=== PATIENT | female | born 1945 | race Caucasian/White ===

== ENCOUNTER 2018-04-29 14:55 | Inpatient (IN) ==
--- NOTE | 2018-04-29 15:17 | Emergency Department Note ---
Disposition Clinical Impression: SVC (superior vena cava obstruction) Disposition: Admitted As Inpatient Condition: Good Forms: ED Satisfaction Letter, Work/School Release Time of Disposition: 17:44 General Adult HPI - General Chief complaint: ED General Medical Stated complaint: Blood clot right side neck, CA Pt Time Seen by Provider: 04/29/18 15:11 Source: patient Mode of arrival: ambulatory Limitations: no limitations Nursing Notes Reviewed: Yes Vital Signs Reviewed: Yes - History of Present Illness HPI Narrative: Female patient presenting to the emergency department complaining of a clot to her superior vena cava. She was seen at oncology today and told to come to the emergency department. She has had one week history of increasing swelling to her face and arms bilaterally. She does have a history of colon cancer with metastatic disease to the liver. She denies any shortness of breath or chest pain. She does report that the swelling has been getting worse. She was at the hospital on Saturday and sent home. She had an ultrasound of her upper extremities that did not show evidence of flow obstruction however on CTA of patient's chest there was a clot to the superior vena cava. She denies any fevers or chills. No nausea vomiting or diarrhea. She does report pain to her lower ribs bilaterally and pain in her arms bilaterally. Also reporting a headache. Pain Scale: 7 - Related Data Home Medications Medication Instructions Recorded Confirmed Dexamethasone [Decadron] 4 mg PO BID 04/16/18 04/28/18 Lisinopril [Zestril] 10 mg PO DAILY 04/16/18 04/28/18 amLODIPine [Norvasc] 10 mg PO DAILY 04/16/18 04/28/18 Capecitabine [Xeloda] 1,500 mg PO BID 04/29/18 04/29/18 Previous Rx's Medication Instructions Recorded Lidocaine/Prilocaine [Emla] 1 appl TP DAILY #30 gm 04/16/18 Allergies Allergy/AdvReac Type Severity Reaction Status Date / Time codeine AdvReac Abdominal Verified 10/11/15 14:45 Pain All systems ED: reviewed and negative except as stated. Review of Systems: As Per HPI Constitutional: Denies: fever ENT ED: Reports: other (Swelling to her face and arms bilaterally also to her breasts and upper chest.). Denies: congestion Cardiovascular: Denies: chest pain, syncope Respiratory: Denies: cough, dyspnea Gastrointestinal: Denies: abdominal pain, nausea, vomiting, diarrhea Genitourinary: Reports: dysuria (Occasional). Denies: urgency, frequency, hematuria Integumentary: Denies: rash Neurological: Reports: headache, other (Pain to upper extremities bilaterally.) . Denies: weakness Past Medical History - Past Medical History Attestation: Yes The following information was validated with the patient. 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 Also to her neck area. Does complain of a soreness to her neck bilaterally.) - Eye Eye exam: Present: normal appearance, PERRL, EOMI. Absent: scleral icterus - ENT ENT exam: normal exam, normal oropharynx, mucous membranes moist - Neck Neck exam: Present: trachea midline, other (Fullness feeling. Pain to palpation of left and right side of her neck.) - Chest Chest inspection: Present: other (Vascular congestion to the upper portion of her chest as well as her breasts bilaterally.) - Respiratory Respiratory exam: Present: normal lung sounds bilaterally. Absent: respiratory distress, accessory muscle use - Cardiovascular Cardiovascular exam: Present: regular rate, normal rhythm, normal heart sounds - Abdominal Exam Abdominal exam: Present: soft, Non-Tender. Absent: tenderness, distention, guarding, rebound, rigidity, organomegaly, Duran's sign, Rovsing's sign, tenderness at McBurney's Point - Extremities Exam Extremities exam: Present: tenderness (To palpation of both upper extremities), other (Congestion in swelling to upper extremity is bilaterally. However compartments are soft. Does have good pulses bilaterally.) - Back Exam Back exam: Present: normal inspection, full ROM. Absent: tenderness - Neurological Exam Neurological exam: Present: alert, oriented X3 - Psychiatric Psychiatric exam: Present: normal affect, normal mood - Skin Skin exam: Present: warm, dry, intact, normal color. Absent: rash, cyanosis, diaphoresis Course Course Narrative: Patient has known SVC syndrome. She is uncomfortable treating this at home. We will start patient on a heparin drip at this time. Patient does report a tightness feeling to her neck as well as her bilateral upper extremity is. She is refusing pain medication other than Tylenol at this time. She was diagnosed with a urinary tract infection however is not started antibodies for this. We did do a UA while she was here. She has a positive leuk esterase but no urine bacteria. We will send the urine for culture at this time. We will also admit to the hospital. Patient states she has had no history of blood clot previously. She is well-appearing and does not appear to be in any distress currently. She does have a port to the right side which is concerning for where the clot originated. She states she has been unable to use the port for several days. - Consultations Consultation #1: Dr. Medrano accepted patient in stable condition. Time: 17:00 Consultation #2: I spoke with Dr. Cavazos with oncology. He states he will be over to the hospital see the patient on the floor. Time: 17:36 Vital Signs Temperature 98.2 F 04/29/18 14:58 Pulse Rate 96 04/29/18 14:58 Respiratory Rate 16 04/29/18 14:58 Blood Pressure 147/84 04/29/18 14:58 O2 Sat by Pulse Oximetry 97 04/29/18 14:58 Temperature 98.2 F 04/29/18 14:58 Pulse Rate 96 04/29/18 14:58 Respiratory Rate 16 04/29/18 14:58 Blood Pressure 147/84 04/29/18 14:58 O2 Sat by Pulse Oximetry 97 04/29/18 14:58 Oxygen Delivery Oxygen Delivery Room Air Medical Decision Making - Medical Records Medical records reviewed: Yes I reviewed the patient's medical records. - Lab Data Lab results reviewed: Yes I reviewed the patient's lab results. Result diagrams: 04/29/18 16:34 04/29/18 16:34 Lab Results 04/29/18 04/29/18 04/29/18 Range/Units 16:27 16:34 16:34 WBC 6.3 (4.3-11.1) K/mcL RBC 4.01 (3.82-4.97) M/mcL Hgb 12.4 (11.5-15.4) g/dL Hct 36.9 (35.3-44.9) % MCV 92.0 (83.0-100.0) fL MCH 30.9 (28.0-33.3) pg MCHC 33.6 (31.6-35.5) g/dL RDW 17.2 H (11.5-14.5) % Plt Count 88 L D (140-400) K/mcL MPV 10.7 (9.4-12.4) fL Immature Plt Fraction 5.2 (1.1-6.1) % PT (9.4-12.1) Seconds INR Heparin Anti-Xa, Unfract (0.30-0.70) IU/mL Sodium 133 L (136-145) mEq/L Potassium 3.8 (3.5-5.1) mEq/L Chloride 102 (98-107) mEq/L Carbon Dioxide 24 (23-29) mEq/L BUN 17 (8-23) mg/dL Creatinine 0.63 (0.60-1.20) mg/dL Est GFR ( Amer) > 60 (> 60) Est GFR (Non-Af Amer) > 60 (> 60) BUN/Creatinine Ratio 27 H (6-26) Glucose 106 H (70-105) mg/dL Calculated Osmolality 278 L (280-300) Calcium 9.3 (8.6-10.3) mg/dL Urine Color Dark Yellow (Yellow) Urine Clarity Clear (Clear) Urine pH 5.5 (5.0-8.0) pH Units Ur Specific [place] 1.030 H (1.010-1.025) Urine Protein Trace (Neg-Trace) mg/dL Urine Glucose (UA) Normal (Normal) mg/dL Urine Ketones Negative (Negative) mg/dL Urine Blood Negative (Negative) Urine Nitrite Negative (Negative) Urine Bilirubin Small H (Negative) Urine Urobilinogen Normal (Normal) mg/dL Ur Leukocyte Esterase Moderate H (Negative) Urine Microscopic RBC 3-5 H (0-3) per hpf Urine Microscopic WBC 30-50 H (0-3) per hpf Ur Squamous Epith Cells Many H (None-Few) per lpf Urine Bacteria None Seen (None-Few) per hpf Hyaline Casts Moderate H (None-Few) per lpf Ur Culture Indicated? NO. A (NO) 04/29/18 Range/Units 16:52 WBC (4.3-11.1) K/mcL RBC (3.82-4.97) M/mcL Hgb (11.5-15.4) g/dL Hct (35.3-44.9) % MCV (83.0-100.0) fL MCH (28.0-33.3) pg MCHC (31.6-35.5) g/dL RDW (11.5-14.5) % Plt Count (140-400) K/mcL MPV (9.4-12.4) fL Immature Plt Fraction (1.1-6.1) % PT 10.9 (9.4-12.1) Seconds INR 1.0 Heparin Anti-Xa, Unfract 0.08 L (0.30-0.70) IU/mL Sodium (136-145) mEq/L Potassium (3.5-5.1) mEq/L Chloride (98-107) mEq/L Carbon Dioxide (23-29) mEq/L BUN (8-23) mg/dL Creatinine (0.60-1.20) mg/dL Est GFR ( Amer) (> 60) Est GFR (Non-Af Amer) (> 60) BUN/Creatinine Ratio (6-26) Glucose (70-105) mg/dL Calculated Osmolality (280-300) Calcium (8.6-10.3) mg/dL Urine Color (Yellow) Urine Clarity (Clear) Urine pH (5.0-8.0) pH Units Ur Specific [place] (1.010-1.025) Urine Protein (Neg-Trace) mg/dL Urine Glucose (UA) (Normal) mg/dL Urine Ketones (Negative) mg/dL Urine Blood (Negative) Urine Nitrite (Negative) Urine Bilirubin (Negative) Urine Urobilinogen (Normal) mg/dL Ur Leukocyte Esterase (Negative) Urine Microscopic RBC (0-3) per hpf Urine Microscopic WBC (0-3) per hpf Ur Squamous Epith Cells (None-Few) per lpf Urine Bacteria (None-Few) per hpf Hyaline Casts (None-Few) per lpf Ur Culture Indicated? (NO)
[2018-04-29 16:41] LABS: Bilirubin,Urine Small (Negative); Blood,Urine Negative (Negative); Clarity,Urine Clear (Clear); Color,Urine Dark Yellow (Yellow); Glucose,Urine (UA) Normal (Normal); Ketones,Urine Negative (Negative); Leukocyte Esterase,Urine Moderate (Negative); Nitrite,Urine Negative (Negative); PH,Urine 5.5 pH Units (5.0-8.0); Protein,Urine Trace mg/dL (Neg-Trace); Urobilinogen,Urine Normal (Normal)
[2018-04-29 16:44] LABS: Bacteria,Urine None Seen per hpf (None-Few); Hyaline Casts,Urine Moderate per lpf (None-Few); Squamous Epithelial Cell,Urine Many per lpf (None-Few); WBC,Urine 30-50 per hpf (0-3)
[2018-04-29] MEDS ORDERED: *HR* Heparin 5,000 UNIT/ML VIAL IVP ONE (16:52)
[2018-04-29] MEDS ORDERED: *HR* Heparin 5,000 UNIT/ML VIAL IVP PRN ×2 (16:52)
[2018-04-29] MEDS ORDERED: Heparin 25,000 UNIT/500 ML D5W 25,000 UNIT/500 ML BAG IVC SCH (17:00)
[2018-04-29 17:16] LABS: Immature Granulocytes % 0.5 % (0-4)
[2018-04-29 17:18] LABS: Basophils % 0.3 %; Eosinophils # 0.1 K/mcL (0.0-0.6); Eosinophils % 0.8 %; Hematocrit 36.9 % (35.3-44.9); Hemoglobin 12.4 g/dL (11.5-15.4); Immature Platelets 5.2 % (1.1-6.1); Lymphocytes # 1.1 K/mcL (0.6-4.6); Lymphocytes % 16.6 %; Mean Corpuscular HGB Conc 33.6 g/dL (31.6-35.5); Mean Corpuscular Hemoglobin 30.9 pg (28.0-33.3); Mean Platelet Volume 10.7 fL (9.4-12.4); Monocytes # 0.2 K/mcL (0.0-1.3); Monocytes % 2.5 %; Red Blood Count 4.01 M/mcL (3.82-4.97); Red Cell Distribution Width 17.2 % (11.5-14.5); Segmented Neutrophils % 79.3 %
[2018-04-29 17:25] LABS: Heparin anti-factor XA UFH 0.08 IU/mL (0.30-0.70)
[2018-04-29 17:26] LABS: Prothrombin Time 10.9 Seconds (9.4-12.1)
[2018-04-29 17:30] LABS: BUN/Creatinine Ratio 27 (6-26); Blood Urea Nitrogen 17 mg/dL (8-23); Calcium 9.3 mg/dL (8.6-10.3); Carbon Dioxide 24 mEq/L (23-29); Chloride 102 mEq/L (98-107); Glucose 106 mg/dL (70-105); Osmolality,Calculated 278 (280-300); Potassium 3.8 mEq/L (3.5-5.1); Sodium 133 mEq/L (136-145); eGFR For Non-African Americans > 60 (> 60)
[2018-04-29 17:35] LABS: Platelet Count 88 K/mcL (140-400)
[2018-04-29 17:36] LABS: Platelet Estimate Decreased (Normal)
[2018-04-29] MEDS ORDERED: *HR* HYDROcodone/Acet 5/325 mg TABLET PO PRN (17:44)
[2018-04-29] MEDS ORDERED: *HR* OxyCODONE Immed Rel 5 MG TABLET PO PRN (17:44)
[2018-04-29] MEDS ORDERED: Ondansetron 4 MG/2 ML VIAL IVP PRN (17:44)
[2018-04-29] MEDS ORDERED: Naloxone 0.4 MG/ML INJ IVP PRN (17:44)
[2018-04-29] MEDS ORDERED: Acetaminophen 325 MG TABLET PO PRN (17:44)
--- NOTE | 2018-04-29 17:47 | Emergency Department Note ---
Disposition Clinical Impression: SVC (superior vena cava obstruction) Disposition: Admitted As Inpatient Condition: Good Forms: ED Satisfaction Letter, Work/School Release General Adult HPI - General Chief complaint: ED General Medical Stated complaint: Blood clot right side neck, CA Pt Time Seen by Provider: 04/29/18 15:11 Source: patient Mode of arrival: ambulatory Limitations: no limitations - History of Present Illness Pain Scale: 7 - Related Data Home Medications Medication Instructions Recorded Confirmed Dexamethasone [Decadron] 4 mg PO BID 04/16/18 04/29/18 Lisinopril [Zestril] 10 mg PO DAILY 04/16/18 04/29/18 amLODIPine [Norvasc] 10 mg PO DAILY 04/16/18 04/29/18 Capecitabine [Xeloda] 1,500 mg PO BID 04/29/18 04/29/18 Previous Rx's Medication Instructions Recorded Lidocaine/Prilocaine [Emla] 1 appl TP DAILY #30 gm 04/16/18 Allergies Allergy/AdvReac Type Severity Reaction Status Date / Time codeine AdvReac Abdominal Verified 10/11/15 14:45 Pain Constitutional: Denies: fever ENT ED: Reports: other (Swelling to her face and arms bilaterally also to her breasts and upper chest.). Denies: congestion Cardiovascular: Denies: chest pain, syncope Respiratory: Denies: cough, dyspnea Gastrointestinal: Denies: abdominal pain, nausea, vomiting, diarrhea Genitourinary: Reports: dysuria (Occasional). Denies: urgency, frequency, hematuria Integumentary: Denies: rash Neurological: Reports: headache, other (Pain to upper extremities bilaterally.) . 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: Reports: no DIESEL ENGINE ERECTOR history - Social History Smoking Status: Never smoker Smokeless Tobacco Status: No Alcohol use: Reports: none Drug use: Reports: none Physical Exam - General Limitations: no limitations General appearance: alert, in no apparent distress Course Vital Signs Temperature 98.2 F 04/29/18 14:58 Pulse Rate 96 04/29/18 14:58 Respiratory Rate 16 04/29/18 14:58 Blood Pressure 147/84 04/29/18 14:58 O2 Sat by Pulse Oximetry 97 04/29/18 14:58 Temperature 98.2 F 04/29/18 14:58 Pulse Rate 96 04/29/18 14:58 Respiratory Rate 16 04/29/18 14:58 Blood Pressure 147/84 04/29/18 14:58 O2 Sat by Pulse Oximetry 97 04/29/18 14:58 Oxygen Delivery Oxygen Delivery Room Air Medical Decision Making - Lab Data Result diagrams: 04/29/18 16:34 04/29/18 16:34 Lab Results 04/29/18 04/29/18 04/29/18 Range/Units 16:27 16:34 16:34 WBC 6.3 (4.3-11.1) K/mcL RBC 4.01 (3.82-4.97) M/mcL Hgb 12.4 (11.5-15.4) g/dL Hct 36.9 (35.3-44.9) % MCV 92.0 (83.0-100.0) fL MCH 30.9 (28.0-33.3) pg MCHC 33.6 (31.6-35.5) g/dL RDW 17.2 H (11.5-14.5) % Plt Count 88 L D (140-400) K/mcL MPV 10.7 (9.4-12.4) fL Immature Gran % 0.5 (0-4) % Seg Neutrophils % 79.3 % Lymphocytes % 16.6 % Monocytes % 2.5 % Eosinophils % 0.8 % Basophils % 0.3 % Neutrophils # 5.0 (1.6-8.9) K/mcL Lymphocytes # 1.1 (0.6-4.6) K/mcL Monocytes # 0.2 (0.0-1.3) K/mcL Eosinophils # 0.1 (0.0-0.6) K/mcL Basophils # 0.0 (0.0-0.2) K/mcL Platelet Estimate Decreased L (Normal) Immature Plt Fraction 5.2 (1.1-6.1) % PT (9.4-12.1) Seconds INR Heparin Anti-Xa, Unfract (0.30-0.70) IU/mL Sodium 133 L (136-145) mEq/L Potassium 3.8 (3.5-5.1) mEq/L Chloride 102 (98-107) mEq/L Carbon Dioxide 24 (23-29) mEq/L BUN 17 (8-23) mg/dL Creatinine 0.63 (0.60-1.20) mg/dL Est GFR ( Amer) > 60 (> 60) Est GFR (Non-Af Amer) > 60 (> 60) BUN/Creatinine Ratio 27 H (6-26) Glucose 106 H (70-105) mg/dL Calculated Osmolality 278 L (280-300) Calcium 9.3 (8.6-10.3) mg/dL Urine Color Dark Yellow (Yellow) Urine Clarity Clear (Clear) Urine pH 5.5 (5.0-8.0) pH Units Ur Specific [place] 1.030 H (1.010-1.025) Urine Protein Trace (Neg-Trace) mg/dL Urine Glucose (UA) Normal (Normal) mg/dL Urine Ketones Negative (Negative) mg/dL Urine Blood Negative (Negative) Urine Nitrite Negative (Negative) Urine Bilirubin Small H (Negative) Urine Urobilinogen Normal (Normal) mg/dL Ur Leukocyte Esterase Moderate H (Negative) Urine Microscopic RBC 3-5 H (0-3) per hpf Urine Microscopic WBC 30-50 H (0-3) per hpf Ur Squamous Epith Cells Many H (None-Few) per lpf Urine Bacteria None Seen (None-Few) per hpf Hyaline Casts Moderate H (None-Few) per lpf Ur Culture Indicated? NO. A (NO) 04/29/18 Range/Units 16:52 WBC (4.3-11.1) K/mcL RBC (3.82-4.97) M/mcL Hgb (11.5-15.4) g/dL Hct (35.3-44.9) % MCV (83.0-100.0) fL MCH (28.0-33.3) pg MCHC (31.6-35.5) g/dL RDW (11.5-14.5) % Plt Count (140-400) K/mcL MPV (9.4-12.4) fL Immature Gran % (0-4) % Seg Neutrophils % % Lymphocytes % % Monocytes % % Eosinophils % % Basophils % % Neutrophils # (1.6-8.9) K/mcL Lymphocytes # (0.6-4.6) K/mcL Monocytes # (0.0-1.3) K/mcL Eosinophils # (0.0-0.6) K/mcL Basophils # (0.0-0.2) K/mcL Platelet Estimate (Normal) Immature Plt Fraction (1.1-6.1) % PT 10.9 (9.4-12.1) Seconds INR 1.0 Heparin Anti-Xa, Unfract 0.08 L (0.30-0.70) IU/mL Sodium (136-145) mEq/L Potassium (3.5-5.1) mEq/L Chloride (98-107) mEq/L Carbon Dioxide (23-29) mEq/L BUN (8-23) mg/dL Creatinine (0.60-1.20) mg/dL Est GFR ( Amer) (> 60) Est GFR (Non-Af Amer) (> 60) BUN/Creatinine Ratio (6-26) Glucose (70-105) mg/dL Calculated Osmolality (280-300) Calcium (8.6-10.3) mg/dL Urine Color (Yellow) Urine Clarity (Clear) Urine pH (5.0-8.0) pH Units Ur Specific [place] (1.010-1.025) Urine Protein (Neg-Trace) mg/dL Urine Glucose (UA) (Normal) mg/dL Urine Ketones (Negative) mg/dL Urine Blood (Negative) Urine Nitrite (Negative) Urine Bilirubin (Negative) Urine Urobilinogen (Normal) mg/dL Ur Leukocyte Esterase (Negative) Urine Microscopic RBC (0-3) per hpf Urine Microscopic WBC (0-3) per hpf Ur Squamous Epith Cells (None-Few) per lpf Urine Bacteria (None-Few) per hpf Hyaline Casts (None-Few) per lpf Ur Culture Indicated? (NO) Attestation Statement - Attestation Attestation: I examined this patient and my medical decision-making was reviewed with the Resident Physician. I agree with the documented findings, disposition and treatment plan as described except to the extent set forth below. Patient sent in to be anticoagulated and admitted for SVC syndrome secondary to a clot. She has metastatic colon cancer with metastases to her liver. Clot was visualized on CT scan earlier today. She has classic presentation with facial swelling, headache, bilateral upper extremity swelling without lower extremity swelling. Mental status is normal. Patient being admitted, accepted by the hospitalist.
--- NOTE | 2018-04-29 18:12 | Internal Med History&Physical ---
Date of Encounter: 04/29/18 Time of Encounter: 18:08 Internal Medicine - H&P: HPI Chief complaint: Facial swelling, bilateral upper extremity swelling Admitted From: Emergency Dept Plans for Post Hospital Care: Home History of present illness: Ms. 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 Let us from Saturday she noticed having swelling in both upper extremities. She was seen at he Hem Onc office had a venous Doppler of both UE done which did not show any DVT. However her CTA of chest showed possible blood clots in SVC. Patient was asked to go to ER for further evaluation and to be admitted in the hospital. Patient states that she still having same symptoms. Denied any chest pain. Denied any hematemesis /melena. Denied any lower extremity tenderness/pain Past Med Surg Social Fam HX - Past Medical History Medical history: cancer, hypertension Additional medical history: colon ca Psychiatric history: no psych history - Social History Smoking Status: Never smoker Smokeless Tobacco Status: No Alcohol use: none Drug use: none - Family History Grandmother Hx Family Cancer: Yes (Ovarian /cervical) Internal Medicine - H&P: Meds Dexamethasone [Decadron] 4 mg PO BID 04/16/18 [History] Lidocaine/Prilocaine [Emla] 1 appl TP DAILY #30 gm 04/16/18 [Rx] Lisinopril [Zestril] 10 mg PO DAILY 04/16/18 [History] amLODIPine [Norvasc] 10 mg PO DAILY 04/16/18 [History] Capecitabine [Xeloda] 1,500 mg PO BID 04/29/18 [History] 3 Allergy/AdvReac Type Severity Reaction Status Date / Time codeine AdvReac Abdominal Verified 10/11/15 14:45 Pain All Systems PM: A 10-system review of systems was performed and is negative for pertinent findings except as documented above in the HPI. Review of systems: All the systems are reviewed everything is benign except the systems and symptoms I mentioned in the history of present illness - Constitutional Vitals: Temp Pulse Resp BP Pulse Ox 98.2 F 96 16 147/84 97 04/29/18 14:58 04/29/18 14:58 04/29/18 14:58 04/29/18 14:58 04/29/18 14:58 General appearance: Present: cooperative, A&O X 3, no acute distress, answers questions appropriately Exam: See below - Head Head exam: Present: atraumatic Additional comments: Slightly swollen face - Neck Neck exam general surgery: Present: full ROM, supple. Absent: tenderness - Respiratory Respiratory exam: Present: decreased breath sounds. Absent: rales, respiratory distress, rhonchi, wheezes - Cardiovascular Cardiovascular exam: Present: RRR, +S1, +S2. Absent: tachycardia - GI/Abdominal GI/Abdominal exam: Present: normal bowel sounds, soft. Absent: rebound, rigid, tenderness - Extremities Exam Extremities exam: Absent: calf tenderness, pedal edema, tenderness Additional comments: Mild to moderate swelling in both upper extremities - Back Exam Back exam: Absent: CVA tenderness (L), CVA tenderness (R) - Neurological Exam Neurological exam: Present: alert, oriented X3 - Psychiatric Psychiatric exam: Present: normal affect, normal mood - Skin Skin exam: Absent: rash Internal Med - H&P Results - Labs CBC & Chem 7: 04/29/18 16:34 04/29/18 16:34 Labs: Short CBC 04/29/18 Range/Units 16:34 WBC 6.3 (4.3-11.1) K/mcL Hgb 12.4 (11.5-15.4) g/dL Hct 36.9 (35.3-44.9) % Plt Count 88 L D (140-400) K/mcL Neutrophils # 5.0 (1.6-8.9) K/mcL BMP 04/29/18 16:34 Sodium 133 L Potassium 3.8 Chloride 102 Carbon Dioxide 24 BUN 17 Creatinine 0.63 Glucose 106 H Calcium 9.3 Urine 04/29/18 Range/Units 16:27 Urine Color Dark Yellow (Yellow) Urine Clarity Clear (Clear) Urine pH 5.5 (5.0-8.0) pH Units Ur Specific [place] 1.030 H (1.010-1.025) Urine Protein Trace (Neg-Trace) mg/dL Urine Glucose (UA) Normal (Normal) mg/dL - Assessment and plan (1) Acute thrombosis of superior vena cava Current Visit: Yes Status: Acute Assessment and plan: Admit the patient into Tele reviewed her CTA of the chest from 04/28/18 showed no acute PE, however does have possible thrombi in SVC Venous doppler off bilateral upper extremity negative for DVT her DVT mostly due to chemo port will talk to Heme Onc in AM about replacing Chemo port vs holding Chemo for few weeks we will place her on heparin drip with bolus dose will consider to switch to Eliquis or Xarelto in AM after talking to Heme Onc Heme Onc consulted cont symptomatic and supportive care (2) Port-A-Cath in place Current Visit: Yes Status: Acute (3) Hypertension Current Visit: Yes Status: Acute Assessment and plan: Stable blood pressure resumed all home medications Qualifiers: Hypertension type: essential hypertension Qualified Code(s): I10 - Essential (primary) hypertension (4) Metastatic colon cancer to liver Current Visit: Yes Status: Acute Assessment and plan: Heme Onc consulted (5) Colon cancer Current Visit: No Status: Acute Qualifiers: Colon location: unspecified part of colon Qualified Code(s): C18.9 - Malignant neoplasm of colon, unspecified - Time Spent With Patient Total time spent is greater than 50% in coordination of care (as documented) at patient's floor/unit and/or counseling patient:
[2018-04-30 01:28] LABS: Red Cell Distribution Width 17.1 % (11.5-14.5)
[2018-04-30 01:30] LABS: Basophils % 0.2 %; Eosinophils # 0.1 K/mcL (0.0-0.6); Eosinophils % 1.2 %; Hematocrit 37.1 % (35.3-44.9); Hemoglobin 12.4 g/dL (11.5-15.4); Immature Granulocytes % 0.8 % (0-4); Immature Platelets 4.5 % (1.1-6.1); Lymphocytes # 0.9 K/mcL (0.6-4.6); Lymphocytes % 17.5 %; Mean Corpuscular HGB Conc 33.4 g/dL (31.6-35.5); Mean Corpuscular Hemoglobin 30.2 pg (28.0-33.3); Mean Corpuscular Volume 90.5 fL (83.0-100.0); Mean Platelet Volume 10.8 fL (9.4-12.4); Monocytes # 0.1 K/mcL (0.0-1.3); Monocytes % 2.4 %; Neutrophils # 3.9 K/mcL (1.6-8.9); Segmented Neutrophils % 77.9 %
[2018-04-30 01:33] LABS: Platelet Count 80 K/mcL (140-400)
[2018-04-30 01:54] LABS: BUN/Creatinine Ratio 25 (6-26); Blood Urea Nitrogen 14 mg/dL (8-23); Calcium 9.2 mg/dL (8.6-10.3); Carbon Dioxide 23 mEq/L (23-29); Chloride 104 mEq/L (98-107); Glucose 113 mg/dL (70-105); Osmolality,Calculated 281 (280-300); Potassium 3.9 mEq/L (3.5-5.1); Sodium 135 mEq/L (136-145); eGFR For Non-African Americans > 60 (> 60)
[2018-04-30] MEDS: amLODIPine 5 MG TABLET PO SCH (10:25)
--- NOTE | 2018-04-30 18:03 | Oncology Inp Consult Note ---
Date of Encounter: 04/30/18 Time of Encounter: 16:30 Assessment and Plan (1) SVC (superior vena cava obstruction) Status: Acute Assessment and plan: CTA Chest revealed Focal filling defect is seen within the superior vena cava while this could represent mixing of contrast given the presence of a Port-A- Cath this could represent partial thrombosis. Clinically consistent with SVC thrombus resulting in SVC syndrome like symptoms. She has experienced a dramatic improvement within her symptoms since initiation of IV Heparin. Clinically stable and improving at this time. (2) Acute thrombosis of superior vena cava Status: Acute Assessment and plan: Details as above. Risk factors include active malignancy and presence of A-Port Plan: Discussed with interventional radiology team- would recommend keeping port in place at this time as long as she continues to clinically respond to anticoagulation Recommend Lovenox at discharge, may transition to DOAC in future following a few weeks or lovenox-exact duration TBD per Dr. Stapleton. - Data of Consult Patient: known to practice within the last 3 years Consult date: 04/30/18 Requesting Physician: Jaida Medrano MD Primary Care Provider: PCP NONE - Consult Narrative Reason for consult: SVC thrombus History of present illness: Ms. Kate is a 73 year old female with metastatic rectal cancer involving the liver, abdominal lymph nodes and possibly lung initially diagnosed 01/2015. Prior therapy: 1. FOLFOX Avastin 02/2015-06/2015 2. 5-FU Avastin maintenance 06/2015-03/2017. Avastin was discontinued 2016 secondary to proteinuria. Stopped secondary to progression 3. XELOX with Avastin 07/2017-12/2017, stopped secondary to progression. 4. FOLFIRI Avastin 01/14/2018-04/2018 Current therapy: 1. Dose attenuated XELIRI with Avastin initiated 04/23/2018 Treatment intent: Palliative Ms. Kate presented to outpatient cancer center clinic on 04/28/18 with report of worsening facial/neck and upper extremity edema. She was evaluated in the ER over the weekend for edema which began on Saturday. This was suspected to be secondary to an allergic reaction and she was discharged with benadryl. Since that time her edema has worsened, she feels an ear fullness, pain and tenderness with neck movement or palpation, she experiences orthopnea but no breathing difficulty otherwise, no issues swallowing or tongue edema. She denies fever, chills, chest pain, visual changes or neurologic deficit. She has not had any recent medication or environmental changes. Her clinical presentation was concerning for SVC thrombus. A CTA was obtained which revealed a thrombus in the SVC. Her BUE dopplers were negative. The patient was contacted regarding her CT results when she reported acute changes and worsening in her symptoms in regards to hearing difficulty, worsening of edema and voice changes. She was then asked to present to the ER for admission with heparin gtt. Past Med Surg Social Fam HX - Past Medical History Medical history: cancer, hypertension Additional medical history: colon ca Psychiatric history: no psych history - Past Surgical History Surgical History: other Additional surgical history: carpal tunnel surgery to right hand - Social History Smoking Status: Never smoker Smokeless Tobacco Status: No Alcohol use: none Drug use: none - Family History Grandmother Hx Family Cancer: Yes Medications and Allergies Dexamethasone [Decadron] 4 mg PO BID 04/16/18 [History] Lidocaine/Prilocaine [Emla] 1 appl TP DAILY #30 gm 04/16/18 [Rx] Lisinopril [Zestril] 10 mg PO DAILY 04/16/18 [History] amLODIPine [Norvasc] 10 mg PO DAILY 04/16/18 [History] Capecitabine [Xeloda] 1,500 mg PO BID 04/29/18 [History] Enoxaparin [Lovenox] 65 mg SQ Q12HCO #30 syringe 05/01/18 [Rx] 3 Allergy/AdvReac Type Severity Reaction Status Date / Time codeine AdvReac Abdominal Verified 10/11/15 14:45 Pain Constitutional: Present: fatigue, weakness. Absent: anorexia, chills, fever(s) , frequent falls, headache(s), weight loss Eyes: Present: other (orbital edema). Absent: change in vision, diplopia Nose, mouth and throat: Present: change in voice (improved since admission), facial pain, neck pain. Absent: dysphagia, headache(s), mouth pain, throat swelling, tongue swelling, vertigo Cardiovascular: Present: orthopnea. Absent: chest pain, palpitations Respiratory: Absent: cough, dyspnea, hemoptysis, stridor Gastrointestinal: Absent: abdominal pain, change in bowel habits, constipation, diarrhea, nausea, vomiting Genitourinary: Absent: dysuria, hematuria Musculoskeletal: Present: muscle weakness Integumentary: Present: erythema. Absent: rash, wounds Neurological: Absent: focal weakness, frequent falls Hematologic/Lymphatic: Present: as per HPI Allergic/Immunologic: Absent: tongue swelling, throat swelling, uticaria, wheezing, lip swelling Oncology - Exam - Constitutional Vitals: Temp Pulse Resp BP Pulse Ox 96.2 F L 89 19 144/71 92 04/30/18 17:26 04/30/18 17:26 04/30/18 17:26 04/30/18 17:26 04/30/18 17:26 General appearance: cooperative, no acute distress, no febrile - Head Head exam: Present: atraumatic - ENT ENT exam: Present: mucous membranes moist - Respiratory Respiratory exam: Present: CTAB. Absent: respiratory distress - Cardiovascular Cardiovascular exam: Present: RRR, +S1, +S2 - GI/Abdominal GI/Abdominal exam: Present: normal bowel sounds, soft. Absent: guarding, rebound, tenderness - Extremities Exam Extremities exam: Present: normal inspection. Absent: calf tenderness - Neurological Exam Neurological exam: Present: alert, oriented X3, no focal deficits, strengths equal and symetr throughout - Psychiatric Psychiatric exam: Present: normal affect, normal mood - Skin Skin exam: Present: dry, intact, normal color, warm Oncology - Results Labs: 3 04/30/18 04/30/18 04/30/18 16:12 08:33 01:02 WBC RBC Hgb Hct MCV MCH MCHC RDW Plt Count MPV Immature Gran % Seg Neutrophils % Lymphocytes % Monocytes % Eosinophils % Basophils % Neutrophils # Lymphocytes # Monocytes # Eosinophils # Basophils # Immature Plt Fraction Heparin Anti-Xa, Unfract 0.62 1.15 H* 1.67 H* Sodium Potassium Chloride Carbon Dioxide BUN Creatinine Est GFR ( Amer) Est GFR (Non-Af Amer) BUN/Creatinine Ratio Glucose Calculated Osmolality Calcium 3 04/30/18 04/30/18 01:02 01:02 WBC 5.0 RBC 4.10 Hgb 12.4 Hct 37.1 MCV 90.5 MCH 30.2 MCHC 33.4 RDW 17.1 H Plt Count 80 L MPV 10.8 Immature Gran % 0.8 Seg Neutrophils % 77.9 Lymphocytes % 17.5 Monocytes % 2.4 Eosinophils % 1.2 Basophils % 0.2 Neutrophils # 3.9 Lymphocytes # 0.9 Monocytes # 0.1 Eosinophils # 0.1 Basophils # 0.0 Immature Plt Fraction 4.5 Heparin Anti-Xa, Unfract Sodium 135 L Potassium 3.9 Chloride 104 Carbon Dioxide 23 BUN 14 Creatinine 0.56 L Est GFR ( Amer) > 60 Est GFR (Non-Af Amer) > 60 BUN/Creatinine Ratio 25 Glucose 113 H Calculated Osmolality 281 Calcium 9.2 Consult Discharge Plan - Plan Instructions: Enoxaparin (Injection), Deep Venous Thrombosis (DC), Superior Vena Cava Syndrome (DC) Additional Instructions: Follow-up with Dr. Webster, Sample Processor (eye doctor) today. Please call his office today to schedule as soon as you know what time you are leaving. He is not in office tomorrow. Please continue to use Lovenox as directed until hematology/oncology tells you to stop. Please follow-up with Hematology/oncology next week. Please follow-up with your primary care physician in 1 week. Referrals: [facility] [Provider Group] - 05/07/18 8:30 am Ophthalmology [Provider Group] - 05/01/18 2:30 pm ( [address] [place] [address]) Ysabel Bauer, CHORE TENDER [Advanced Practice Nurse] - 05/07/18 9:15 am (New patient appt ) NONE,PCP [Primary Care Provider] - Prescriptions: Enoxaparin [Lovenox] 65 mg SQ Q12HCO #30 syringe
--- NOTE | 2018-04-30 19:07 | Internal Med Progress Note ---
Hospitalist Progress Note - Encounter Date of Encounter: 04/30/18 Time of Encounter: 11:00 - Subjective Interval History: Ms. 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 Let us from Saturday she noticed having swelling in both upper extremities. She was seen at he Hem Onc office had a venous Doppler of both UE done which did not show any DVT. However her CTA of chest showed possible blood clots in SVC. Patient was admitted in the hospital and started on heparin drip. Patient states his symptoms improved today - Exam Vitals: Temp Pulse Resp BP Pulse Ox 96.2 F L 89 19 144/71 92 04/30/18 17:26 04/30/18 17:26 04/30/18 17:26 04/30/18 17:26 04/30/18 17:26 Exam: Gen: Alert, awake, Oriented to time,place and person Chest: Diminished breath sounds B/L, No wheezing, No crackles, No rales Heart: S1S2+ RRR No murmurs Abd: Soft, NT, BS +, No organomegaly Ext:, pulses are palpable, No calf tenderness, mild edema in both upper extremities Neuro : Benign findings Skin: No rash. - Assessment and Plan (1) Acute thrombosis of superior vena cava Current Visit: Yes Status: Acute Assessment and Plan: CTA of the chest from 04/28/18 showed no acute PE, however does have possible thrombi in SVC Venous doppler off bilateral upper extremity negative for DVT her SVC thrombi mostly due to chemo port Talked to Heme Onc and IR , recommend not to remove Chemo port Cont Heparin gtt for now cont symptomatic and supportive care (2) Port-A-Cath in place Current Visit: Yes Status: Acute (3) Hypertension Current Visit: Yes Status: Acute Assessment and Plan: Stable blood pressure resumed all home medications (4) Metastatic colon cancer to liver Current Visit: Yes Status: Acute Assessment and Plan: Heme Onc consulted (5) Colon cancer Current Visit: No Status: Acute - Time Spent with Patient Total time spent is greater than 50% in coordination of care (as documented) at patient's floor/unit and/or counseling patient: Internal Medicine: Result - Labs CBC & Chem 7: 04/30/18 01:02 04/30/18 01:02 Labs: Short CBC 04/30/18 Range/Units 01:02 WBC 5.0 (4.3-11.1) K/mcL Hgb 12.4 (11.5-15.4) g/dL Hct 37.1 (35.3-44.9) % Plt Count 80 L (140-400) K/mcL Neutrophils # 3.9 (1.6-8.9) K/mcL BMP 04/30/18 01:02 Sodium 135 L Potassium 3.9 Chloride 104 Carbon Dioxide 23 BUN 14 Creatinine 0.56 L Glucose 113 H Calcium 9.2 - ABG Interpretation ABG results: PT/INR, D-dimer PT 10.9 Seconds (9.4-12.1) 04/29/18 16:52 Consult Discharge Plan - Plan Referrals: NONE,PCP [Primary Care Provider] - (3) Hypertension Qualifiers: Hypertension type: essential hypertension Qualified Code(s): I10 - Essential (primary) hypertension (5) Colon cancer Qualifiers: Colon location: unspecified part of colon Qualified Code(s): C18.9 - Malignant neoplasm of colon, unspecified
[2018-05-01] MEDS: amLODIPine 5 MG TABLET PO SCH (08:26)
[2018-05-01] MEDS ORDERED: *HR* Enoxaparin 80 MG/0.8 ML SYRINGE SQ SCH (09:30)
--- NOTE | 2018-05-01 09:47 | Discharge Summary ---
<Mary Ayala - Last Filed: 05/01/18 17:02> - NOTES TO OUTPATIENT PROVIDER Notes to Outpatient Provider: Will need to take Lovenox until Onco/Heme says to stop Orders not resulted at time of discharge: Pending orders 05/01/18 22:00 Heparin anti-factor XA UFH [COAG] Timed Date of Encounter: 05/01/18 Time of Encounter: 08:30 - Discharge Diagnosis (1) Colon cancer Priority: Secondary Status: Acute Qualifiers: Colon location: unspecified part of colon Qualified Code(s): C18.9 - Malignant neoplasm of colon, unspecified (2) Acute thrombosis of superior vena cava Priority: Primary Status: Acute (3) Hypertension Priority: Secondary Status: Acute Qualifiers: Hypertension type: essential hypertension Qualified Code(s): I10 - Essential (primary) hypertension (4) Metastatic colon cancer to liver Priority: Secondary Status: Acute (5) Port-A-Cath in place Priority: Secondary Status: Acute Hospital course: H&P HPI: Ms. 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 Saturday she noticed having swelling in both upper extremities. She was seen at he Hem Onc office had a venous Doppler of both UE done which did not show any DVT. However her CTA of chest showed possible blood clots in SVC. Patient was asked to go to ER for further evaluation and to be admitted in the hospital. Patient states that she still having same symptoms. Denied any chest pain. Denied any hematemesis /melena. Denied any lower extremity tenderness/pain. HOSPITAL COURSE: Patient was placed on heparin drip. Facial swelling improved over hospital course. Oncology was consulted and agreed to place patient on Lovenox for SVC thrombosis and recommended keeping chemo port. Ophthalmology was consulted due to swelling of her upper eyelid superior to the medial epicanthic fold. Discussed with Dr. Webster and he instructed us to discharge her and send her to his for a same day appointment, so he could better exam her in his office. Discussed with patient who confirmed understanding. Patients vital remained stable. Patient was discharged on Lovenox 65mg BID with a f/u appointment with Hem/onco next week and PCP within the next 5 days. Instructed to call Dr. Webster today to make an appointment. Discharge discussed with: patient - Time Spent with Patient Total time spent providing and/or coordinating discharge services: - Discharge Medications Prescriptions: Enoxaparin [Lovenox] 65 mg SQ Q12HCO #30 syringe Home Medications: Dexamethasone [Decadron] 4 mg PO BID 04/16/18 [History] Lidocaine/Prilocaine [Emla] 1 appl TP DAILY #30 gm 04/16/18 [Rx] Lisinopril [Zestril] 10 mg PO DAILY 04/16/18 [History] amLODIPine [Norvasc] 10 mg PO DAILY 04/16/18 [History] Capecitabine [Xeloda] 1,500 mg PO BID 04/29/18 [History] Enoxaparin [Lovenox] 65 mg SQ Q12HCO #30 syringe 05/01/18 [Rx] Allergies/Adverse Reactions: 3 Allergy/AdvReac Type Severity Reaction Status Date / Time codeine AdvReac Abdominal Verified 10/11/15 14:45 Pain Date of admission: 04/29/18 18:17 Primary care physician: PCP NONE Discharging clinician: Olga Brody Anticipated date of discharge: 05/01/18 - Constitutional Vitals: Temp Pulse Resp BP Pulse Ox 97.9 F 67 16 144/67 95 05/01/18 08:09 05/01/18 08:09 05/01/18 08:09 05/01/18 08:09 05/01/18 08:09 General appearance: Present: cooperative, A&O X 3, no acute distress, answers questions appropriately Exam: Constitutional: Alert, in no acute distress Head: head wrap in place, left side of face slightly swollen compared to left Eye: upper left eye lid with fluid in the medial aspect, Heart: Normal, regular rate and rhythm, no murmurs Lungs: right sided chemo port within pain erythema, Clear to auscultation, no wheezes, rales, or rhonchi Abdomen: Soft, nondistended, nontender, bowel sounds present and normal, no guarding or rigidity. Extremities: No edema, No clubbing, radial pulse +2/4, capillary refill <2sec. Skin: Skin warm and dry, no lesions, no rashes, no jaundice Neurologic: Cranial nerves II through XII grossly intact, strength 5/5 in all extremities Psych: Cooperative with exam, good eye contact, cognitive function intact, speech clear, thought process logical, and goal directed - Patient Status Disposition: Home, Self-Care Condition: Good Functional capacity at discharge: independent ambulation Overall status at discharge: patient is progressing back to baseline - Discharge Instructions Instructions: Enoxaparin (Injection), Deep Venous Thrombosis (DC), Superior Vena Cava Syndrome (DC) Follow Up With: [facility] [Provider Group] - 05/07/18 8:30 am Ophthalmology [Provider Group] - 05/01/18 2:30 pm ( [address] [place] [address]) Ysabel Bauer, [employer] [Advanced Practice Nurse] - 05/07/18 9:15 am (New patient appt ) NONE,PCP [Primary Care Provider] - Additional Instructions: Follow-up with Dr. Webster, Supervisor [employer] (eye doctor) today. Please call his office today to schedule as soon as you know what time you are leaving. He is not in office tomorrow. Please continue to use Lovenox as directed until hematology/oncology tells you to stop. Please follow-up with Hematology/oncology next week. Please follow-up with your primary care physician in 1 week. - Diet and Activity Activity: increase activity as tolerated Diet: advance to your usual diet <Olga Brody - Last Filed: 05/01/18 17:56> Date of Encounter: 05/01/18 - Discharge Diagnosis (1) Colon cancer Status: Acute Qualifiers: Colon location: unspecified part of colon Qualified Code(s): C18.9 - Malignant neoplasm of colon, unspecified (2) Acute thrombosis of superior vena cava Status: Acute (3) Hypertension Status: Acute Qualifiers: Hypertension type: essential hypertension Qualified Code(s): I10 - Essential (primary) hypertension (4) Metastatic colon cancer to liver Status: Acute (5) Port-A-Cath in place Status: Acute Hospital course: Ms. Kate is a 73 year old female - Time Spent with Patient Total time spent providing and/or coordinating discharge services: Date of admission: 04/29/18 18:17 Primary care physician: PCP NONE - Constitutional Vitals: Temp Pulse Resp BP Pulse Ox 98.5 F 71 16 144/73 93 05/01/18 11:00 05/01/18 11:00 05/01/18 11:00 05/01/18 11:00 05/01/18 11:00 - Attending Attestation I examined this patient and my medical decision-making was reviewed with the Resident Physician Dr. Ayala. I agree with the documented findings, disposition and treatment plan as described except to the extent set forth below. Ms. 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 Let us from Saturday she noticed having swelling in both upper extremities. She was seen at he Hem Onc office had a venous Doppler of both UE done which did not show any DVT. However her CTA of chest showed possible blood clots in SVC. Patient was admitted in the hospital and started on heparin drip. Patient states his symptoms improved today. She was evaluated by Heme Onc and IR, recommend to keep Chemo port and switch anti coag to Lovenox. Pt symptoms are lot better today. medically stable to d/c home today.
--- NOTE | 2018-05-01 10:57 | Oncology Inp Progress Note ---
Date of Encounter: 05/01/18 Time of Encounter: 10:54 (1) Acute thrombosis of superior vena cava Current Visit: Yes Status: Acute Assessment and plan: Likely due to poor and place with active malignancy. Symptomatically improved. No indication for thrombectomy. We will leave port in place at this time and follow-up as an outpatient next week for further management. Recommend Lovenox 1 mg/kg twice a day. Stable for discharge from a hematology/oncology standpoint. Oncology: Subj Interval history: Patient seen and examined at bedside. Patient states that she feels much better today. She feels like her facial swelling and pain is much improved. She denies chest pain, shortness of breath. - Constitutional Vitals: Vital Signs Temp Pulse Resp BP Pulse Ox 05/01/18 08:09 97.9 F 67 16 144/67 95 05/01/18 07:34 97.8 F 65 16 130/70 93 05/01/18 04:00 98.0 F 85 18 129/74 97 05/01/18 01:00 97.7 F 79 17 122/65 96 04/30/18 22:31 92 04/30/18 21:00 98.1 F 72 17 128/66 92 04/30/18 17:26 96.2 F L 89 19 144/71 92 04/30/18 11:13 97.8 F 87 21 149/96 95 Intake and Output 04/30/18 05/01/18 05/01/18 23:59 07:59 15:59 Intake Total 139 / 139 0 / 0 400 / 400 Output Total 300 / 300 0 / 0 Balance -161 / -161 0 / 0 400 / 400 Intake: IV Fluids 139 / 139 Heparin 25,000 UNIT/500 ML D5W 139 / 139 25,000 unit In 500 ml @ 14 UNIT /KG/HR 18.594 mls/hr IVC .Q24H JOSAFAT Rx#:[id number] Oral 0 / 0 400 / 400 Output: Urine 300 / 300 0 / 0 Other: Meal Breakfast Percent of Meal Consumed 90% Weight 65.1 kg Patient Weight 05/01/18 23:59 Weight 65.1 kg General appearance: no acute distress - Eye Eye exam: Present: periorbital swelling (mild) - ENT ENT exam: Present: mucous membranes moist - Respiratory Respiratory exam: Present: CTAB. Absent: rales, rhonchi - Cardiovascular Cardiovascular exam: Present: RRR. Absent: diastolic murmur, systolic murmur - GI/Abdominal GI/Abdominal exam: Present: normal bowel sounds, soft. Absent: tenderness - Extremities Exam Extremities exam: Absent: pedal edema - Neurological Exam Neurological exam: Present: alert, oriented X3 Oncology: Obj Data - Labs CBC & Chem 7: 04/30/18 01:02 04/30/18 01:02 Labs: Laboratory Results - last 24 hr 04/30/18 04/30/18 16:12 22:09 Heparin Anti-Xa, Unfract 0.62 0.50 - ABG Interpretation ABG results: PT/INR, D-dimer PT 10.9 Seconds (9.4-12.1) 04/29/18 16:52 Consult Discharge Plan - Plan Additional Instructions: Follow-up with Dr. Webster, Senior Staff [employer] (eye doctor) today. Please call his office today to schedule as soon as you know what time you are leaving. He is not in office tomorrow. Please continue to use Lovenox as directed until hematology/oncology tells you to stop. Please follow-up with Hematology/oncology next week. Please follow-up with your primary care physician in 1 week. Referrals: [facility] [Provider Group] Ophthalmology [Provider Group] NONE,PCP [Primary Care Provider] - Prescriptions: Enoxaparin [Lovenox] 65 mg SQ Q12HCO #30 syringe
[2018-05-01 11:03] VITALS: BP 144/73
== END 2018-05-01 13:03 | disposition home or self-care (01) | DRG 315 ==
LOC: 2NENU 14:55 → EMEROOARM 14:55 → OBSVTOIN 18:17 → 2NENU 20:34
PROVIDERS: ADMIT Internal Medicine; ATTEND Internal Medicine

== ENCOUNTER 2018-05-21 09:42 | Observation (INO) ==
--- NOTE | 2018-05-21 10:19 | Emergency Department Note ---
Disposition Clinical Impression: Metastatic colon cancer to liver Colon cancer Qualifiers: Colon location: overlapping sites Qualified Code(s): C18.8 - Malignant neoplasm of overlapping sites of colon Abdominal pain Qualifiers: Abdominal location: generalized Qualified Code(s): R10.84 - Generalized abdominal pain Disposition: Admitted As Inpatient Condition: Fair Abdominal Pain HPI - General Chief Complaint: ED Abdominal Pain Stated Complaint: ABd Pain Time Seen by Provider: 05/21/18 10:18 Source: patient, family Nursing Notes Reviewed: Yes Vital Signs Reviewed: Yes - History of Present Illness HPI Narrative: I have personally seen and evaluated the patient along with the Medical Student. I have reviewed and confirmed the history of present illness, review of systems, family, medical, and surgical history and agree with the documentation except as documented below. Pain Scale: 9 - Related Data Home Medications Medication Instructions Recorded Confirmed Dexamethasone [Decadron] 4 mg PO BID 04/16/18 05/21/18 Lisinopril [Zestril] 10 mg PO DAILY 04/16/18 05/21/18 amLODIPine [Norvasc] 10 mg PO DAILY 04/16/18 05/21/18 Capecitabine [Xeloda] 1,500 mg PO BID 04/29/18 05/21/18 Previous Rx's Medication Instructions Recorded Lidocaine/Prilocaine [Emla] 1 appl TP DAILY #30 gm 04/16/18 Rivaroxaban [Xarelto] 20 mg PO DAILY #30 tablet 05/07/18 Allergies Allergy/AdvReac Type Severity Reaction Status Date / Time codeine AdvReac Abdominal Verified 05/21/18 14:45 Pain Review of Systems: As reviewed in the HPI. All other systems reviewed are negative or normal. Abdominal Pain PMH - Past Medical History Medical history: Reports: cancer, hypertension Female Surgical History: Reports: no surgical history BOX FINISHER history: Reports: no BOX FINISHER history Psychiatric history: Reports: no psych history - Social History Smoking status: Never smoker Alcohol use: Reports: none Drug use: Reports: none Physical Exam - General Limitations: no limitations General appearance: alert, in no apparent distress, other (Appears ill but nontoxic) - Head Head exam: atraumatic, normocephalic, normal inspection - Eye Eye exam: Present: normal appearance, PERRL, EOMI - ENT ENT exam: normal exam, normal oropharynx, mucous membranes moist - Neck Neck exam: Present: normal inspection, full ROM, trachea midline - Chest Chest inspection: Present: normal inspection, symmetric chest wall rise - Respiratory Respiratory exam: Present: normal lung sounds bilaterally - Cardiovascular Cardiovascular exam: Present: tachycardia - Abdominal Exam Abdominal exam: Present: soft, tenderness, distention, guarding, normal bowel sounds. Absent: rebound, rigidity - Extremities Exam Extremities exam: Present: normal inspection, full ROM. Absent: tenderness, pedal edema - Neurological Exam Neurological exam: Present: alert, oriented X3 - Psychiatric Psychiatric exam: Present: normal affect, normal mood - Skin Skin exam: Present: warm, dry, intact, normal color Course Course Narrative: Patient presenting with abdominal pain. CT showed diffuse colitis of the transverse, descending, sigmoid and rectum. Unclear if this is infectious or inflammatory in nature. She is 2 weeks status post last dose of chemotherapy and her white blood cell count should be trended. At this point. Patient admitted to the hospitalist service for further workup and evaluation. Patient' s abdominal pain has significantly improved after Dilaudid. She is still nauseated and feels unwell. Accepted by the hospitalist service for admission Vital Signs Temperature 97.9 F 05/21/18 09:46 Pulse Rate 100 05/21/18 09:46 Respiratory Rate 17 05/21/18 09:46 Blood Pressure 144/79 05/21/18 09:46 O2 Sat by Pulse Oximetry 99 05/21/18 09:46 Temperature 97.9 F 05/21/18 09:46 Pulse Rate 89 05/21/18 11:40 Respiratory Rate 20 05/21/18 11:40 Blood Pressure 138/74 05/21/18 11:40 O2 Sat by Pulse Oximetry 97 05/21/18 12:20 Oxygen Delivery Oxygen Delivery Room Air Abdominal Pain - Lab Data Result diagrams: 05/21/18 10:52 05/21/18 10:52 Lab Results 05/21/18 05/21/18 05/21/18 Range/Units 10:52 10:52 10:52 WBC 1.9 L (4.3-11.1) K/mcL RBC 3.84 (3.82-4.97) M/mcL Hgb 11.4 L (11.5-15.4) g/dL Hct 34.9 L (35.3-44.9) % MCV 90.9 (83.0-100.0) fL MCH 29.7 (28.0-33.3) pg MCHC 32.7 (31.6-35.5) g/dL RDW 17.2 H (11.5-14.5) % Plt Count 228 (140-400) K/mcL MPV 10.1 (9.4-12.4) fL Immature Gran % 1.0 (0-4) % Seg Neutrophils % 18.6 % Lymphocytes % 46.9 % Monocytes % 32.5 % Eosinophils % 0.5 % Basophils % 0.5 % Neutrophils # 0.4 L (1.6-8.9) K/mcL Lymphocytes # 0.9 (0.6-4.6) K/mcL Monocytes # 0.6 (0.0-1.3) K/mcL Eosinophils # 0.0 (0.0-0.6) K/mcL Basophils # 0.0 (0.0-0.2) K/mcL Platelet Estimate Normal (Normal) PT 34.3 H (9.4-12.1) Seconds INR 3.0 APTT 48.2 H (26.0-36.0) Seconds Sodium 138 (136-145) mEq/L Potassium 3.3 L (3.5-5.1) mEq/L Chloride 104 (98-107) mEq/L Carbon Dioxide 22 L (23-29) mEq/L BUN 9 (8-23) mg/dL Creatinine 0.54 L (0.60-1.20) mg/dL Est GFR ( Amer) > 60 (> 60) Est GFR (Non-Af Amer) > 60 (> 60) BUN/Creatinine Ratio 17 (6-26) Glucose 101 (70-105) mg/dL Calculated Osmolality 285 (280-300) Lactic Acid (0.5-2.2) mmol/L Calcium 9.4 (8.6-10.3) mg/dL Total Bilirubin 0.8 (0.3-1.0) mg/dL Direct Bilirubin 0.1 (0.0-0.2) mg/dL Indirect Bilirubin 0.7 (0.0-1.2) mg/dL GGT (1-24) Units/L AST 31 (13-39) Units/L ALT 35 (7-52) Units/L Alkaline Phosphatase 198 H (34-104) Units/L Lactate Dehydrogenase (140-271) Units/L Troponin I < 0.03 (< 0.04) ng/mL Serum Total Protein 6.8 (6.4-8.9) g/dL Albumin 3.6 (3.5-5.7) g/dL Globulin 3.2 (2.4-3.5) g/dL Albumin/Globulin Ratio 1.1 (1.1-2.2) Lipase 27 (11-82) Units/L Urine Color (Yellow) Urine Clarity (Clear) Urine pH (5.0-8.0) pH Units Ur Specific [place] (1.010-1.025) Urine Protein (Neg-Trace) mg/dL Urine Glucose (UA) (Normal) mg/dL Urine Ketones (Negative) mg/dL Urine Blood (Negative) Urine Nitrite (Negative) Urine Bilirubin (Negative) Urine Urobilinogen (Normal) mg/dL Ur Leukocyte Esterase (Negative) Urine Microscopic RBC (0-3) per hpf Urine Microscopic WBC (0-3) per hpf Ur Squamous Epith Cells (None-Few) per lpf Urine Bacteria (None-Few) per hpf Hyaline Casts (None-Few) per lpf Ur Culture Indicated? (NO) 05/21/18 05/21/18 05/21/18 Range/Units 10:54 11:22 12:02 WBC (4.3-11.1) K/mcL RBC (3.82-4.97) M/mcL Hgb (11.5-15.4) g/dL Hct (35.3-44.9) % MCV (83.0-100.0) fL MCH (28.0-33.3) pg MCHC (31.6-35.5) g/dL RDW (11.5-14.5) % Plt Count (140-400) K/mcL MPV (9.4-12.4) fL Immature Gran % (0-4) % Seg Neutrophils % % Lymphocytes % % Monocytes % % Eosinophils % % Basophils % % Neutrophils # (1.6-8.9) K/mcL Lymphocytes # (0.6-4.6) K/mcL Monocytes # (0.0-1.3) K/mcL Eosinophils # (0.0-0.6) K/mcL Basophils # (0.0-0.2) K/mcL Platelet Estimate (Normal) PT (9.4-12.1) Seconds INR APTT (26.0-36.0) Seconds Sodium (136-145) mEq/L Potassium (3.5-5.1) mEq/L Chloride (98-107) mEq/L Carbon Dioxide (23-29) mEq/L BUN (8-23) mg/dL Creatinine (0.60-1.20) mg/dL Est GFR ( Amer) (> 60) Est GFR (Non-Af Amer) (> 60) BUN/Creatinine Ratio (6-26) Glucose (70-105) mg/dL Calculated Osmolality (280-300) Lactic Acid 1.9 (0.5-2.2) mmol/L Calcium (8.6-10.3) mg/dL Total Bilirubin (0.3-1.0) mg/dL Direct Bilirubin (0.0-0.2) mg/dL Indirect Bilirubin (0.0-1.2) mg/dL GGT 164 H (1-24) Units/L AST (13-39) Units/L ALT (7-52) Units/L Alkaline Phosphatase (34-104) Units/L Lactate Dehydrogenase 213 (140-271) Units/L Troponin I (< 0.04) ng/mL Serum Total Protein (6.4-8.9) g/dL Albumin (3.5-5.7) g/dL Globulin (2.4-3.5) g/dL Albumin/Globulin Ratio (1.1-2.2) Lipase (11-82) Units/L Urine Color Yellow (Yellow) Urine Clarity Clear (Clear) Urine pH 6.0 (5.0-8.0) pH Units Ur Specific [place] 1.025 (1.010-1.025) Urine Protein Trace (Neg-Trace) mg/dL Urine Glucose (UA) Normal (Normal) mg/dL Urine Ketones Negative (Negative) mg/dL Urine Blood Negative (Negative) Urine Nitrite Negative (Negative) Urine Bilirubin Negative (Negative) Urine Urobilinogen Normal (Normal) mg/dL Ur Leukocyte Esterase Negative (Negative) Urine Microscopic RBC 5-15 H (0-3) per hpf Urine Microscopic WBC 3-5 H (0-3) per hpf Ur Squamous Epith Cells Many H (None-Few) per lpf Urine Bacteria None Seen (None-Few) per hpf Hyaline Casts Few (None-Few) per lpf Ur Culture Indicated? NO (NO) Attestation Statement - Attestation Attestation: This documentation is done with the assistance of Dragon dictation. Despite efforts made to ensure accuracy, there may be inaccuracies in spring winder or spelling and typographical errors. I examined this patient and my medical decision-making was reviewed with the Resident Physician. I agree with the documented findings, disposition and treatment plan as described except to the extent set forth below. Patient seen and evaluated on arrival with Dr. Riley and myself, I agree with his evaluation management plan, supervise care the patient's stay. Patient has history of colon cancer with metastatic disease to the liver. She was seen at the oncology clinic today. Her white count is lower than usual. She said some rectal bleeding and right upper quadrant pain. [facility] bedside ultrasound on her here. And then were going to do a CT the abdomen check lab work and reassess. She may need admission. She is in agreement with plan.
[2018-05-21] MEDS ORDERED: Isovue-370 500 ML INFUS..BTL IV ONE (10:52)
[2018-05-21] MEDS ORDERED: 0.9 % Sodium Chloride 1,000 ML IVC ONE (10:52)
[2018-05-21] MEDS ORDERED: Ondansetron 4 MG/2 ML VIAL IVP ONE (10:52)
[2018-05-21] MEDS ORDERED: *HR* HYDROmorphone (PF) 1 MG/ML SYRINGE IVP ONE (10:52)
--- NOTE | 2018-05-21 10:59 | Emergency Department Note ---
Disposition Clinical Impression: Colon cancer, Metastatic colon cancer to liver, Abdominal pain Disposition: Admitted As Inpatient Condition: Fair Abdominal Pain HPI - General Chief Complaint: ED Abdominal Pain Stated Complaint: ABd Pain Time Seen by Provider: 05/21/18 10:18 Source: patient, family Mode of arrival: ambulatory Limitations: no limitations Nursing Notes Reviewed: Yes Vital Signs Reviewed: Yes - History of Present Illness HPI Narrative: 73 y/o F with PMHx of stage 4 rectal cancer with mets to the liver presents with complaints of RUQ abdominal pain for the past week. Patient states that the pain began mildly and has gradually increased, rated as a 9-10/10 currently , along with some intermittent nausea. Attempted to treat with Tylenol but no relief. Patient is currently being seen by Dr. Stapleton, oncologist, whose office she was at today when her WBC was found to be 1.7 and the combination of that with the abdominal pain caused him to advise her to present to the ED. She reports feeling a similar pain in March of this year while at the [facility] in [place] when she had increasing size of her liver mets but states the pain today is worse. She had two episodes of non-bloody vomiting yesterday and has some blood in her stool which has been chronic for her. 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 Patient was supposed to get chemotherapy today but given her complaints did not, last chemo was 2 weeks ago. She denies fever, chest pain, SOB, urinary changes, diarrhea, swelling dizziness or trauma to the abdomen. Pain Scale: 9 - Related Data Home Medications Medication Instructions Recorded Confirmed Dexamethasone [Decadron] 4 mg PO BID 04/16/18 05/21/18 Lisinopril [Zestril] 10 mg PO DAILY 04/16/18 05/21/18 amLODIPine [Norvasc] 10 mg PO DAILY 04/16/18 05/21/18 Capecitabine [Xeloda] 1,500 mg PO BID 04/29/18 05/21/18 Previous Rx's Medication Instructions Recorded Lidocaine/Prilocaine [Emla] 1 appl TP DAILY #30 gm 04/16/18 Rivaroxaban [Xarelto] 20 mg PO DAILY #30 tablet 05/07/18 Ciprofloxacin HCl [Cipro] 750 mg PO BID 12 Days #72 tab 05/23/18 metroNIDAZOLE [Metronidazole] 500 mg PO TID 12 Days #36 tablet 05/23/18 Allergies Allergy/AdvReac Type Severity Reaction Status Date / Time codeine AdvReac Abdominal Verified 05/21/18 14:45 Pain Constitutional: Denies: fever, chills, weakness, weight change Cardiovascular: Denies: chest pain, palpitations, dyspnea on exertion, edema, syncope Respiratory: Denies: cough, dyspnea, wheezes, hemoptysis, stridor Gastrointestinal: Reports: abdominal pain (right sided and into right back), nausea, vomiting (x2 yesterday), hematochezia (chronic for her). Denies: diarrhea, constipation, hematemesis, melena Genitourinary: Denies: dysuria, frequency, hematuria, discharge Musculoskeletal: Reports: back pain (right sided flank). Denies: neck pain, arthralgia, myalgia Integumentary: Denies: rash, abrasion, lesions Neurological: Denies: headache, weakness, numbness, paresthesias, confusion Abdominal Pain PMH - Past Medical History Medical history: Reports: cancer, hypertension Female Surgical History: Reports: no surgical history POWER AND RECOVERY SHIFT ENGINEER history: Reports: no POWER AND RECOVERY SHIFT ENGINEER history Psychiatric history: Reports: no psych history - Social History Smoking status: Never smoker Alcohol use: Reports: none Drug use: Reports: none Physical Exam - General Limitations: no limitations General appearance: alert, in no apparent distress - Head Head exam: atraumatic, normocephalic, normal inspection - Eye Eye exam: Present: normal appearance, PERRL. Absent: scleral icterus - ENT ENT exam: normal exam, normal oropharynx, mucous membranes moist - Neck Neck exam: Present: normal inspection, full ROM, trachea midline - Chest Chest inspection: Present: normal inspection, symmetric chest wall rise - Respiratory Respiratory exam: Present: normal lung sounds bilaterally - Cardiovascular Cardiovascular exam: Present: regular rate, normal rhythm, normal heart sounds - Abdominal Exam Abdominal exam: Present: soft, tenderness, diminished bowel sounds, Duran's sign. Absent: distention, rigidity Abdominal tenderness: Present: RUQ, epigastrium, severe - Extremities Exam Extremities exam: Present: normal inspection, full ROM. Absent: tenderness, pedal edema - Neurological Exam Neurological exam: Present: alert, oriented X3 - Psychiatric Psychiatric exam: Present: normal affect, normal mood - Skin Skin exam: Present: warm, dry, intact, normal color Course Vital Signs Temperature 97.9 F 05/21/18 09:46 Pulse Rate 100 05/21/18 09:46 Respiratory Rate 17 05/21/18 09:46 Blood Pressure 144/79 05/21/18 09:46 O2 Sat by Pulse Oximetry 99 05/21/18 09:46 Temperature 98.2 F 05/23/18 10:33 Pulse Rate 69 05/23/18 10:33 Respiratory Rate 16 05/23/18 10:33 Blood Pressure 116/74 05/23/18 10:33 O2 Sat by Pulse Oximetry 98 05/23/18 10:33 Oxygen Delivery Oxygen Delivery Room Air Abdominal Pain - Lab Data Result diagrams: 05/23/18 11:04 05/23/18 04:00 Lab Results 05/21/18 05/21/18 05/21/18 Range/Units 10:52 10:52 10:52 WBC 1.9 L (4.3-11.1) K/mcL RBC 3.84 (3.82-4.97) M/mcL Hgb 11.4 L (11.5-15.4) g/dL Hct 34.9 L (35.3-44.9) % MCV 90.9 (83.0-100.0) fL MCH 29.7 (28.0-33.3) pg MCHC 32.7 (31.6-35.5) g/dL RDW 17.2 H (11.5-14.5) % Plt Count 228 (140-400) K/mcL MPV 10.1 (9.4-12.4) fL Immature Gran % 1.0 (0-4) % Seg Neutrophils % 18.6 % Lymphocytes % 46.9 % Monocytes % 32.5 % Eosinophils % 0.5 % Basophils % 0.5 % Neutrophils # 0.4 L (1.6-8.9) K/mcL Lymphocytes # 0.9 (0.6-4.6) K/mcL Monocytes # 0.6 (0.0-1.3) K/mcL Eosinophils # 0.0 (0.0-0.6) K/mcL Basophils # 0.0 (0.0-0.2) K/mcL Platelet Estimate Normal (Normal) PT 34.3 H (9.4-12.1) Seconds INR 3.0 APTT 48.2 H (26.0-36.0) Seconds Sodium 138 (136-145) mEq/L Potassium 3.3 L (3.5-5.1) mEq/L Chloride 104 (98-107) mEq/L Carbon Dioxide 22 L (23-29) mEq/L BUN 9 (8-23) mg/dL Creatinine 0.54 L (0.60-1.20) mg/dL Est GFR ( Amer) > 60 (> 60) Est GFR (Non-Af Amer) > 60 (> 60) BUN/Creatinine Ratio 17 (6-26) Glucose 101 (70-105) mg/dL Calculated Osmolality 285 (280-300) Lactic Acid (0.5-2.2) mmol/L Calcium 9.4 (8.6-10.3) mg/dL Total Bilirubin 0.8 (0.3-1.0) mg/dL Direct Bilirubin 0.1 (0.0-0.2) mg/dL Indirect Bilirubin 0.7 (0.0-1.2) mg/dL GGT (1-24) Units/L AST 31 (13-39) Units/L ALT 35 (7-52) Units/L Alkaline Phosphatase 198 H (34-104) Units/L Lactate Dehydrogenase (140-271) Units/L Troponin I < 0.03 (< 0.04) ng/mL Serum Total Protein 6.8 (6.4-8.9) g/dL Albumin 3.6 (3.5-5.7) g/dL Globulin 3.2 (2.4-3.5) g/dL Albumin/Globulin Ratio 1.1 (1.1-2.2) Lipase 27 (11-82) Units/L Urine Color (Yellow) Urine Clarity (Clear) Urine pH (5.0-8.0) pH Units Ur Specific [place] (1.010-1.025) Urine Protein (Neg-Trace) mg/dL Urine Glucose (UA) (Normal) mg/dL Urine Ketones (Negative) mg/dL Urine Blood (Negative) Urine Nitrite (Negative) Urine Bilirubin (Negative) Urine Urobilinogen (Normal) mg/dL Ur Leukocyte Esterase (Negative) Urine Microscopic RBC (0-3) per hpf Urine Microscopic WBC (0-3) per hpf Ur Squamous Epith Cells (None-Few) per lpf Urine Bacteria (None-Few) per hpf Hyaline Casts (None-Few) per lpf Ur Culture Indicated? (NO) 05/21/18 05/21/18 05/21/18 Range/Units 10:54 11:22 12:02 WBC (4.3-11.1) K/mcL RBC (3.82-4.97) M/mcL Hgb (11.5-15.4) g/dL Hct (35.3-44.9) % MCV (83.0-100.0) fL MCH (28.0-33.3) pg MCHC (31.6-35.5) g/dL RDW (11.5-14.5) % Plt Count (140-400) K/mcL MPV (9.4-12.4) fL Immature Gran % (0-4) % Seg Neutrophils % % Lymphocytes % % Monocytes % % Eosinophils % % Basophils % % Neutrophils # (1.6-8.9) K/mcL Lymphocytes # (0.6-4.6) K/mcL Monocytes # (0.0-1.3) K/mcL Eosinophils # (0.0-0.6) K/mcL Basophils # (0.0-0.2) K/mcL Platelet Estimate (Normal) PT (9.4-12.1) Seconds INR APTT (26.0-36.0) Seconds Sodium (136-145) mEq/L Potassium (3.5-5.1) mEq/L Chloride (98-107) mEq/L Carbon Dioxide (23-29) mEq/L BUN (8-23) mg/dL Creatinine (0.60-1.20) mg/dL Est GFR ( Amer) (> 60) Est GFR (Non-Af Amer) (> 60) BUN/Creatinine Ratio (6-26) Glucose (70-105) mg/dL Calculated Osmolality (280-300) Lactic Acid 1.9 (0.5-2.2) mmol/L Calcium (8.6-10.3) mg/dL Total Bilirubin (0.3-1.0) mg/dL Direct Bilirubin (0.0-0.2) mg/dL Indirect Bilirubin (0.0-1.2) mg/dL GGT 164 H (1-24) Units/L AST (13-39) Units/L ALT (7-52) Units/L Alkaline Phosphatase (34-104) Units/L Lactate Dehydrogenase 213 (140-271) Units/L Troponin I (< 0.04) ng/mL Serum Total Protein (6.4-8.9) g/dL Albumin (3.5-5.7) g/dL Globulin (2.4-3.5) g/dL Albumin/Globulin Ratio (1.1-2.2) Lipase (11-82) Units/L Urine Color Yellow (Yellow) Urine Clarity Clear (Clear) Urine pH 6.0 (5.0-8.0) pH Units Ur Specific [place] 1.025 (1.010-1.025) Urine Protein Trace (Neg-Trace) mg/dL Urine Glucose (UA) Normal (Normal) mg/dL Urine Ketones Negative (Negative) mg/dL Urine Blood Negative (Negative) Urine Nitrite Negative (Negative) Urine Bilirubin Negative (Negative) Urine Urobilinogen Normal (Normal) mg/dL Ur Leukocyte Esterase Negative (Negative) Urine Microscopic RBC 5-15 H (0-3) per hpf Urine Microscopic WBC 3-5 H (0-3) per hpf Ur Squamous Epith Cells Many H (None-Few) per lpf Urine Bacteria None Seen (None-Few) per hpf Hyaline Casts Few (None-Few) per lpf Ur Culture Indicated? NO (NO)
[2018-05-21 11:38] LABS: Bilirubin,Urine Negative (Negative); Blood,Urine Negative (Negative); Clarity,Urine Clear (Clear); Color,Urine Yellow (Yellow); Glucose,Urine (UA) Normal (Normal); Ketones,Urine Negative (Negative); Leukocyte Esterase,Urine Negative (Negative); Nitrite,Urine Negative (Negative); Protein,Urine Trace mg/dL (Neg-Trace); Specific Gravity,Urine 1.025 (1.010-1.025); Urobilinogen,Urine Normal (Normal)
[2018-05-21 11:40] LABS: Bacteria,Urine None Seen per hpf (None-Few); Hyaline Casts,Urine Few per lpf (None-Few); Squamous Epithelial Cell,Urine Many per lpf (None-Few)
[2018-05-21 12:04] LABS: Basophils % 0.5 %
[2018-05-21 12:05] LABS: Eosinophils % 0.5 %; Hematocrit 34.9 % (35.3-44.9); Hemoglobin 11.4 g/dL (11.5-15.4); Lymphocytes # 0.9 K/mcL (0.6-4.6); Lymphocytes % 46.9 %; Mean Corpuscular HGB Conc 32.7 g/dL (31.6-35.5); Mean Corpuscular Hemoglobin 29.7 pg (28.0-33.3); Mean Corpuscular Volume 90.9 fL (83.0-100.0); Mean Platelet Volume 10.1 fL (9.4-12.4); Monocytes # 0.6 K/mcL (0.0-1.3); Monocytes % 32.5 %; Neutrophils # 0.4 K/mcL (1.6-8.9); Platelet Count 228 K/mcL (140-400); Red Blood Count 3.84 M/mcL (3.82-4.97); Red Cell Distribution Width 17.2 % (11.5-14.5); Segmented Neutrophils % 18.6 %
[2018-05-21 12:13] LABS: Platelet Estimate Normal (Normal)
[2018-05-21 12:18] LABS: Prothrombin Time 34.3 Seconds (9.4-12.1)
[2018-05-21 12:20] LABS: Troponin I < 0.03 ng/mL (< 0.04)
[2018-05-21 12:21] LABS: Activated Partial Thrombo Time 48.2 Seconds (26.0-36.0)
[2018-05-21 12:24] LABS: Gamma Glutamyl Transpeptidase 164 Units/L (1-24); Lactate Dehydrogenase 213 Units/L (140-271)
[2018-05-21 12:35] LABS: Alanine Aminotransferase 35 Units/L (7-52); Albumin 3.6 g/dL (3.5-5.7); Albumin/Globulin Ratio 1.1 (1.1-2.2); Alkaline Phosphatase 198 Units/L (34-104); Aspartate Amino Transferase 31 Units/L (13-39); BUN/Creatinine Ratio 17 (6-26); Bilirubin,Direct 0.1 mg/dL (0.0-0.2); Bilirubin,Indirect 0.7 mg/dL (0.0-1.2); Bilirubin,Total 0.8 mg/dL (0.3-1.0); Blood Urea Nitrogen 9 mg/dL (8-23); Calcium 9.4 mg/dL (8.6-10.3); Carbon Dioxide 22 mEq/L (23-29); Chloride 104 mEq/L (98-107); Globulin 3.2 g/dL (2.4-3.5); Glucose 101 mg/dL (70-105); Lipase 27 Units/L (11-82); Osmolality,Calculated 285 (280-300); Potassium 3.3 mEq/L (3.5-5.1); Sodium 138 mEq/L (136-145); Total Protein 6.8 g/dL (6.4-8.9); eGFR For Non-African Americans > 60 (> 60)
[2018-05-21] MEDS ORDERED: Naloxone 0.4 MG/ML INJ IVP PRN (14:45)
[2018-05-21] MEDS ORDERED: MORPHINE SUL Oral CONC 10 MG/0.5 ML ORAL.SYG SL PRN (14:51)
[2018-05-21] MEDS ORDERED: traMADol 50 MG TABLET PO PRN (14:52)
[2018-05-21] MEDS ORDERED: Ondansetron 4 MG/2 ML VIAL IVP PRN (15:49)
--- NOTE | 2018-05-21 16:00 | Internal Med History&Physical ---
Date of Encounter: 05/21/18 Time of Encounter: 15:30 Internal Medicine - H&P: HPI Chief complaint: Nausea, vomiting abdominal pain and bloody stools History of present illness: Ms. Kate is a 73 year old female with pmh of hypertension, peripheral neuropathy and rectal cancer with metastasis to the liver on chemotherapy since 2014 presenting with complaints of nausea, vomiting abdominal pain, diarrhea and rectal bleeding of one week duration. Patient had chemotherapy about 2 weeks ago. She says she is typically sick after chemotherapy with some diarrhea but has had progressive weakness, severe , nausea and vomiting and bloody diarrhea. She describes the abdominal pain as dull steady and radiating across the abdomen. she denies any fevers or chills. She went to her oncologist today for a follow up who referred her to the ER In the ER, A ct scan of the abdomen was done showing inflammatory/ infectious colitis and she is being admitted for further management Past Med Surg Social Fam HX - Past Medical History Medical history: cancer, hypertension Additional medical history: colon ca Psychiatric history: no psych history - Past Surgical History Surgical History: other Additional surgical history: carpal tunnel surgery to right hand - Social History Smoking Status: Never smoker Smokeless Tobacco Status: No Alcohol use: none Drug use: none - Family History Grandmother Hx Family Cancer: Yes Internal Medicine - H&P: Meds Dexamethasone [Decadron] 4 mg PO BID 04/16/18 [History] Lidocaine/Prilocaine [Emla] 1 appl TP DAILY #30 gm 04/16/18 [Rx] Lisinopril [Zestril] 10 mg PO DAILY 04/16/18 [History] amLODIPine [Norvasc] 10 mg PO DAILY 04/16/18 [History] Capecitabine [Xeloda] 1,500 mg PO BID 04/29/18 [History] Rivaroxaban [Xarelto] 20 mg PO DAILY #30 tablet 05/07/18 [Rx] 3 Allergy/AdvReac Type Severity Reaction Status Date / Time codeine AdvReac Abdominal Verified 05/21/18 14:45 Pain All Systems PM: A 10-system review of systems was performed and is negative for pertinent findings except as documented above in the HPI. - Constitutional Constitutional: fatigue, lethargy, weakness, no chills, no fever(s), no night sweats - EENT Eyes: no change in vision, no discharge, no pain, no photophobia Ears: no ear discharge, no ear pain, no tinnitus Nose, mouth and throat: no dysphagia, no nasal discharge, no neck pain, no sore throat - Cardiovascular Cardiovascular ROS IM: no chest pain, no diaphoresis, no dyspnea, no lightheadedness, no palpitations, no syncope - Respiratory Respiratory: no cough, no dyspnea, no wheezing, no excessive phlegm production - Gastrointestinal Gastrointestinal: abdominal pain, diarrhea, nausea, vomiting, no hematemesis, no hematochezia, no melena - Genitourinary Genitourinary: no change in urinary stream, no dysuria, no flank pain, no hematuria - Musculoskeletal Musculoskeletal ROS IM: no numbness, no tingling - Integumentary Integumentary IM: no rash, no unusual bruising - Neurological Neurological ROS: no confusion, no convulsions, no focal weakness, no numbness, no tingling, no tremor(s) - Hematologic/Lymphatic Hematologic/Lymphatic: no easy bruising - Constitutional Vitals: Temp Pulse Resp BP Pulse Ox 97.9 F 89 19 129/66 97 05/21/18 09:46 05/21/18 11:40 05/21/18 15:26 05/21/18 15:26 05/21/18 12:20 General appearance: Present: mild distress Exam: lethargic - Head Head exam: Present: atraumatic, normocephalic - Eye Eye exam: Present: PERRL, conjuntiva pink, sclera anicteric Pupils: Present: PERRL - Neck Neck exam general surgery: Present: supple, trachea midline. Absent: lymphadenopathy - Respiratory Respiratory exam: Present: CTAB. Absent: accessory muscle use, rales, rhonchi, wheezes - Cardiovascular Cardiovascular exam: Present: RRR, +S1, +S2. Absent: diastolic murmur, gallop, rubs, systolic murmur - GI/Abdominal GI/Abdominal exam: Present: normal bowel sounds, soft, no peritoneal signs. Absent: distended, tenderness - Extremities Exam Extremities exam: Present: warm, radial pulses palpable and symmetrical. Absent : calf tenderness, cyanotic, pedal edema - Neurological Exam Neurological exam: Present: CN II-XII intact, oriented X3, no focal deficits. Absent: pronater drift, facial droop, speech deficit - Skin Skin exam: Present: dry, intact Internal Med - H&P Results - Labs CBC & Chem 7: 05/21/18 10:52 05/21/18 10:52 - Assessment and plan (1) Colitis Current Visit: Yes Status: Acute Assessment and plan: Pt comes in with colitis with bloody diarrhea s/p chemotherapy with leukopenia Will start on cipro and flagyl due to immunopsuppression and leukopenia, obtain blood and stool cultures GI consulted and recs appreciated. 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
[2018-05-21] MEDS: Potassium Chloride Elixir 20 MEQ/15 ML UDC PO SCH (17:26)
[2018-05-21] MEDS: 0.9 % Sodium Chloride 1,000 ML IVC SCH (17:26)
[2018-05-21] MEDS: MetroNIDAZOLE 500 MG/100 ML 500 MG/100 ML BAG IVPB SCH (17:27)
[2018-05-21] MEDS ORDERED: CAPECITABINE 1500 MG PO SCH (21:00)
[2018-05-22] MEDS: Potassium Chloride Elixir 20 MEQ/15 ML UDC PO SCH (00:14)
[2018-05-22] MEDS: MetroNIDAZOLE 500 MG/100 ML 500 MG/100 ML BAG IVPB SCH ×4 (00:14→23:57)
[2018-05-22 05:34] LABS: Immature Granulocytes % 0.7 % (0-4)
[2018-05-22 05:35] LABS: Basophils % 0.7 %; Eosinophils % 1.4 %; Hematocrit 27.5 % (35.3-44.9); Lymphocytes # 0.7 K/mcL (0.6-4.6); Lymphocytes % 50.4 %; Mean Corpuscular HGB Conc 32.7 g/dL (31.6-35.5); Mean Corpuscular Hemoglobin 29.7 pg (28.0-33.3); Mean Corpuscular Volume 90.8 fL (83.0-100.0); Monocytes # 0.4 K/mcL (0.0-1.3); Monocytes % 30.2 %; Neutrophils # 0.2 K/mcL (1.6-8.9); Platelet Count 184 K/mcL (140-400); Red Blood Count 3.03 M/mcL (3.82-4.97); Red Cell Distribution Width 17.9 % (11.5-14.5); Segmented Neutrophils % 16.6 %
[2018-05-22 05:55] LABS: Anisocytosis 1+ (Not Present); Macrocytosis Present (Not Present); Platelet Estimate Normal (Normal)
[2018-05-22 05:56] LABS: BUN/Creatinine Ratio 12 (6-26); Blood Urea Nitrogen 6 mg/dL (8-23); Calcium 8.9 mg/dL (8.6-10.3); Carbon Dioxide 24 mEq/L (23-29); Chloride 110 mEq/L (98-107); Glucose 89 mg/dL (70-105); Magnesium 1.7 mg/dL (1.6-2.6); Osmolality,Calculated 287 (280-300); Potassium 4.3 mEq/L (3.5-5.1); Reactive Lymphocytes Present (Not Present); Sodium 140 mEq/L (136-145); eGFR For Non-African Americans > 60 (> 60)
[2018-05-22] MEDS: 0.9 % Sodium Chloride 1,000 ML IVC SCH (07:13)
[2018-05-22] MEDS: amLODIPine 5 MG TABLET PO SCH (09:37)
--- NOTE | 2018-05-22 10:39 | Internal Med Progress Note ---
<Lupe Escudero - Last Filed: 05/22/18 13:16> Hospitalist Progress Note - Encounter Date of Encounter: 05/22/18 Time of Encounter: 10:20 - Subjective Interval History: Patient seen and examined. No acute events overnight. Patient is resting comfortably in bed with family at bedside. Patient states shes better. States theres no pain and she feels good and shes laughing. Reports bowel movement today that was formed. There was no blood. Denies nausea/vomiting. Denies swelling. Denies shortness of breath. - Exam Vitals: Temp Pulse Resp BP Pulse Ox 98.8 F 75 16 121/73 97 05/22/18 06:33 05/22/18 09:00 05/22/18 09:00 05/22/18 09:00 05/22/18 09:00 Exam: General: Overweight. Alert and oriented x3. No acute distress. Head: atraumatic, normocephalic. Eye: pupils equal and round. Sclera anicteric. EOMI. Mouth: oral mucosa moist. Normal oropharynx. Neck: supple. Trachea midline. Lungs: CTAB. No rhonchi, rales, or wheezing. No respiratory distress. No accessory muscle use. Cardiovascular: Normal S1 & S2. No rubs or gallops. No JVD. Pulse regular. Abdomen: Normal bowel sounds. Nontender. No guarding, no rigidity, no rebound. Extremities: No joint swelling, edema, or clubbing. Nontender. Skin: warm, dry, and intact. - Assessment and Plan (1) Colitis Current Visit: Yes Status: Acute Assessment and Plan: Patient presents with colitis with bloody diarrhea s/p chemotherapy with leukopenia. Blood cultures drawn 05/21 x2 sets are NGTD. Check stool culture. Improved. Clear liquid diet. Day 2 of cipro and flagyl due to immunopsuppression and leukopenia. GI consulted and recs appreciated. (2) Metastatic colon cancer to liver Current Visit: Yes Status: Acute Assessment and Plan: History of rectal cancer with liver mets. Chemotherapy since 2014. Last chemotherapy 2 weeks ago. Oncology following and outpatient follow up. (3) Acute thrombosis of superior vena cava Current Visit: Yes Status: Acute Assessment and Plan: History of SVC syndrome. Continue xarelto. (4) Hypertension Current Visit: Yes Status: Acute Assessment and Plan: Continue amlodipine and lisinopril (5) DVT prophylaxis Current Visit: Yes Status: Acute Assessment and Plan: On xarelto - Time Spent with Patient Total time spent is greater than 50% in coordination of care (as documented) at patient's floor/unit and/or counseling patient: Internal Medicine: Result - Labs CBC & Chem 7: 05/22/18 05:00 05/22/18 05:00 Labs: Short CBC 05/22/18 Range/Units 05:00 WBC 1.4 L (4.3-11.1) K/mcL Hgb 9.0 L D (11.5-15.4) g/dL Hct 27.5 L (35.3-44.9) % Plt Count 184 (140-400) K/mcL Neutrophils # 0.2 L (1.6-8.9) K/mcL BMP 05/22/18 05:00 Sodium 140 Potassium 4.3 D Chloride 110 H Carbon Dioxide 24 BUN 6 L Creatinine 0.51 L Glucose 89 Calcium 8.9 - ABG Interpretation ABG results: PT/INR, D-dimer PT 34.3 Seconds (9.4-12.1) H 05/21/18 10:52 Consult Discharge Plan - Plan Referrals: Ysabel Bauer, [employer] [Primary Care Provider] - <Gloria Pak - Last Filed: 05/22/18 17:24> Hospitalist Progress Note - Encounter Date of Encounter: 05/22/18 - Exam Vitals: Temp Pulse Resp BP Pulse Ox 98.2 F 94 16 139/75 93 05/22/18 15:58 05/22/18 15:58 05/22/18 15:58 05/22/18 15:58 05/22/18 15:58 - Assessment and Plan (1) Acute thrombosis of superior vena cava Current Visit: Yes Status: Acute (2) Hypertension Current Visit: Yes Status: Acute (3) Metastatic colon cancer to liver Current Visit: Yes Status: Acute (4) Colitis Current Visit: Yes Status: Acute (5) DVT prophylaxis Current Visit: Yes Status: Acute - Time Spent with Patient Total time spent is greater than 50% in coordination of care (as documented) at patient's floor/unit and/or counseling patient: Internal Medicine: Result - Labs CBC & Chem 7: 05/22/18 05:00 05/22/18 05:00 Labs: Short CBC 05/22/18 Range/Units 05:00 WBC 1.4 L (4.3-11.1) K/mcL Hgb 9.0 L D (11.5-15.4) g/dL Hct 27.5 L (35.3-44.9) % Plt Count 184 (140-400) K/mcL Neutrophils # 0.2 L (1.6-8.9) K/mcL BMP 05/22/18 05:00 Sodium 140 Potassium 4.3 D Chloride 110 H Carbon Dioxide 24 BUN 6 L Creatinine 0.51 L Glucose 89 Calcium 8.9 - ABG Interpretation ABG results: PT/INR, D-dimer PT 34.3 Seconds (9.4-12.1) H 05/21/18 10:52 - Attending Attestation Seen and assessed. Agree with plan per resident Plan Colitis. Infectious vs inflammatory. Continue IV fluids, cipro and flagyl. Advance diet as tolerated <Richard Escuderoelle - Last Filed: 05/22/18 13:16> (4) Hypertension Qualifiers: Hypertension type: essential hypertension Qualified Code(s): I10 - Essential (primary) hypertension <Gloria Pak - Last Filed: 05/22/18 17:24> (2) Hypertension Qualifiers: Hypertension type: essential hypertension Qualified Code(s): I10 - Essential (primary) hypertension
--- NOTE | 2018-05-22 11:23 | Gastroenterology Consult Note ---
<Abebe Deleon - Last Filed: 05/22/18 11:21> Date of Encounter: 05/22/18 Time of Encounter: 10:20 - Assessment and plan (1) Colitis Status: Acute Assessment and plan: CT A/P shows suspicious for infectious/inflammatory colitis involving the transverse, descending and rectum, interval evolution of the treated hepatic lesions which are slightly decreased in size. Pain has improved. Continue antibiotics for now. No indication for colonoscopy at this time. Dr. Sexton will discuss with Dr. Stapleton. (2) Colon cancer Status: Acute Qualifiers: Colon location: overlapping sites Qualified Code(s): C18.8 - Malignant neoplasm of overlapping sites of colon - Time Spent With Patient Total time spent is greater than 50% in coordination of care (as documented) at patient's floor/unit and/or counseling patient: GI History of Present Illness - Data of Consult Patient: new to practice Consult date: 05/22/18 Requesting Physician: Tiago Zhou MD - Consult Narrative Reason for consult: Colitis, s/p chemotherapy History of present illness: Ms. Kate is a 73 year old female with PMHx of rectal cancer with metastasis to the liver on chemotherapy since 2014, HTN presenting with complaints of nausea, vomiting abdominal pain, diarrhea and rectal bleeding of one week duration. Patient had chemotherapy about 2 weeks ago. She says she is typically sick after chemotherapy with some diarrhea but has had progressive weakness, severe , nausea and vomiting and bloody diarrhea. She went to her oncologist today for a follow up who referred her to the ER. She was started on Cipro and Flagyl. CT A/P shows suspicious for infectious/inflammatory colitis involving the transverse, descending and rectum, interval evolution of the treated hepatic lesions which are slightly decreased in size. Procedures: Colonoscopy 05/2017 completed in [place], 7 polyps removed per patient report. Colonoscopy 05/2016 completed in [place], 2 polyps removed per patient. NSAIDs: None Anticoagulation: Xarelto Past Med Surg Social Fam HX - Past Medical History Medical history: cancer, hypertension Additional medical history: colon ca Psychiatric history: no psych history - Past Surgical History Surgical History: other Additional surgical history: carpal tunnel surgery to right hand - Social History Smoking Status: Never smoker Smokeless Tobacco Status: No Alcohol use: none Drug use: none - Family History Grandmother Hx Family Cancer: Yes - Gastrointestinal Gastrointestinal: Present: as per HPI - Constitutional Constitutional: as per HPI - EENT Eyes: as per HPI Ears: Present: as per HPI Nose, mouth and throat: Present: as per HPI - Cardiovascular Cardiovascular ROS: Present: as per HPI - Respiratory Respiratory IM: Present: as per HPI - Genitourinary Genitourinary: Absent: change in color, Urinary frequency - Neurological ROS Neurological GI: Present: as per HPI - Hematologic/Lymphatic Hematologic/Lymphatic pediatric: Present: as per HPI - Musculoskeletal Musculoskeletal ROS GI: Present: as per HPI - Integumentary Integumentary GI: Present: as per HPI - Psychiatric ROS Psychiatric GI: Present: as per HPI - Endocrine Endocrine IM: Present: as per HPI - Constitutional Vitals: Temp Pulse Resp BP Pulse Ox 98.6 F 73 16 134/70 96 05/22/18 10:43 05/22/18 10:43 05/22/18 10:43 05/22/18 10:43 05/22/18 10:43 General appearance: Present: cooperative, A&O X 3, no acute distress, answers questions appropriately - Head Head exam: Present: atraumatic, normocephalic - Eye Eye exam: Present: normal appearance, sclera anicteric - ENT ENT exam: Present: mucous membranes moist - Neck Neck exam general surgery: Present: normal inspection, trachea midline - Respiratory Respiratory exam: Present: CTAB. Absent: rales, rhonchi - Cardiovascular Cardiovascular exam: Present: RRR, +S1, +S2 - GI/Abdominal GI/Abdominal exam: Present: soft, no peritoneal signs. Absent: distended, firm, guarding, tenderness - Rectal Rectal exam: Present: deferred - Extremities Exam Extremities exam: Present: warm - Neurological Exam Neurological exam: Present: no focal deficits - Psychiatric Psychiatric exam: Present: normal affect, normal mood - Skin Skin exam: Present: dry, intact, normal color, warm Results - Labs CBC & Chem 7: 05/22/18 05:00 05/22/18 05:00 Labs: Last Result Calcium 8.9 mg/dL (8.6-10.3) 05/22/18 05:00 Troponin I < 0.03 ng/mL (< 0.04) 05/21/18 10:52 Entire Visit Hgb 9.0 g/dL (11.5-15.4) L D 05/22/18 05:00 Hct 27.5 % (35.3-44.9) L 05/22/18 05:00 PT 34.3 Seconds (9.4-12.1) H 05/21/18 10:52 Total Bilirubin 0.8 mg/dL (0.3-1.0) 05/21/18 10:52 AST 31 Units/L (13-39) 05/21/18 10:52 ALT 35 Units/L (7-52) 05/21/18 10:52 Lipase 27 Units/L (11-82) 05/21/18 10:52 - ABG ABG results: PT/INR, D-dimer PT 34.3 Seconds (9.4-12.1) H 05/21/18 10:52 Consult Discharge Plan - Plan Instructions: Ulcerative Colitis (DC) Additional Instructions: follow up with PCP. Referrals: Ysabel Bauer, [employer] [Primary Care Provider] - Prescriptions: Ciprofloxacin HCl [Cipro] 750 mg PO BID 12 Days #72 tab metroNIDAZOLE [Metronidazole] 500 mg PO TID 12 Days #36 tablet <Jaylon Sexton - Last Filed: 05/30/18 08:14> - Time Spent With Patient Total time spent is greater than 50% in coordination of care (as documented) at patient's floor/unit and/or counseling patient: GI History of Present Illness - Data of Consult Requesting Physician: Tiago Zhou MD - Consult Narrative History of present illness: Ms. Kate is a 73 year old female - Constitutional Vitals: Temp Pulse Resp BP Pulse Ox 98.2 F 69 16 116/74 98 05/23/18 10:33 05/23/18 10:33 05/23/18 10:33 05/23/18 10:33 05/23/18 10:33 Results - Labs CBC & Chem 7: 05/23/18 11:04 05/23/18 04:00 Labs: Last Result Calcium 9.5 mg/dL (8.6-10.3) 05/23/18 04:00 Troponin I < 0.03 ng/mL (< 0.04) 05/22/18 23:29 Entire Visit Hgb 10.1 g/dL (11.5-15.4) L 05/23/18 11:04 Hct 30.9 % (35.3-44.9) L 05/23/18 11:04 PT 34.3 Seconds (9.4-12.1) H 05/21/18 10:52 Total Bilirubin 0.8 mg/dL (0.3-1.0) 05/21/18 10:52 AST 31 Units/L (13-39) 05/21/18 10:52 ALT 35 Units/L (7-52) 05/21/18 10:52 Lipase 27 Units/L (11-82) 05/21/18 10:52 - ABG ABG results: PT/INR, D-dimer PT 34.3 Seconds (9.4-12.1) H 05/21/18 10:52 - Attending Attestation As above. Review old records especially colonoscopy from an outside institution in [place], [place]. I have personally performed a face to face evaluation on this patient. I have reviewed and agree with the care plan. History and Exam by me shows:
--- NOTE | 2018-05-22 16:04 | Palliative - Consult Note ---
Date of Encounter: 05/22/18 Time of Encounter: 15:50 - Assessment and Plan (1) Abdominal pain Current Visit: Yes Status: Acute Assessment and plan: Patient has Oxycodone as well as Tramadol ordered for pain, however, has not required any further pain medication since yesterday in the ER. She is asking for diet to be advanced. D/W hospitalist and will increase to full liquid diet. Monitor Qualifiers: Abdominal location: generalized Qualified Code(s): R10.84 - Generalized abdominal pain (2) Advance care planning Current Visit: Yes Status: Acute Assessment and plan: Met with patient and significant other Bill. She has 2 children, son lives in [place], and daughter Jasmyn lives a short distance away. She is feeling much better today and hoping to have short hospital stay. Had discussion r/t advanced care planning. Patient did become tearful stating that no one has ever discussed her desires with her, and any time she tries to discuss with daughter, her daughter refuses to discuss with her. We discussed the importance of family knowing her wishes, and that this could alleviate stress for them in the future. Discussed documents of POA, living will, and also discussed code status. I provided her documents for her to review with family, and will f/u in am if they have had time to discuss. I offered to meet with her and her daughter together to facilitate discussions, but pt declining at this time. She desires to remain full code at this time, and states she will review information I gave to her. Will f/u in am. D/W Dr. Pak. (3) Nausea & vomiting Current Visit: Yes Status: Acute Assessment and plan: Has Ondansetron available if needed, but again, has not utilized since admission to floor. Qualifiers: Vomiting Intractability: unspecified Qualified Code(s): R11.2 - Nausea with vomiting, unspecified (4) Metastatic colon cancer to liver Current Visit: Yes Status: Acute (5) Colitis Current Visit: Yes Status: Acute Palliative-CN HPI - Data of Consult Consult date: 05/22/18 Requesting Physician: Tiago Zhou MD Primary Care Provider: Ysabel Bauer CNP - Consult Narrative History of present illness: Ms. Kate is a 73 year old female with history of metastatic rectal cancer who was at cancer center yesterday and was found to have abd pain, nausea/vomiting, neutropenia. She was sent to Emergency room from oncology for evaluation. CT scand performed with demonstrated inflammatory/infectious colitis. She was started on IV fluids/Flagyl/Cipro and admitted. Last chemotherapy was approx 2 weeks ago. She was originally diagnosed and received treatment at the [facility] with Dr. Pardo, who has retired and she decided to transition care to [place], closer to home. Dr. Rian Stapleton follows her. She has other PMH of HTN, peripheral neuropathy. She was admitted a few weeks ago with superior vena cava obstruction, and was began on Xarelto. Upon my visit, she states she is feeling much better, up on side of bed laughing and joking with S/O at bedside. States pain/nausea has resolved, and asking for diet other than clear liquids. States "feel like different person today". Denies any shortness of breath, anxiety, or other symptoms at this time. CC: Tiago Zhou MD - Time Spent with Patient Time: Total time spent is greater than 50% in coordination of care (as documented) at patient's floor/unit and/or counseling patient: Greater than 35 minutes Past Med Surg Social Fam HX - Past Medical History Medical history: cancer, hypertension Additional medical history: colon ca Psychiatric history: no psych history - Past Surgical History Surgical History: other Additional surgical history: carpal tunnel surgery to right hand - Social History Smoking Status: Never smoker Smokeless Tobacco Status: No Alcohol use: none Drug use: none - Family History Grandmother Hx Family Cancer: Yes Medications and Allergies Dexamethasone [Decadron] 4 mg PO BID 04/16/18 [History] Lidocaine/Prilocaine [Emla] 1 appl TP DAILY #30 gm 04/16/18 [Rx] Lisinopril [Zestril] 10 mg PO DAILY 04/16/18 [History] amLODIPine [Norvasc] 10 mg PO DAILY 04/16/18 [History] Capecitabine [Xeloda] 1,500 mg PO BID 04/29/18 [History] Rivaroxaban [Xarelto] 20 mg PO DAILY #30 tablet 05/07/18 [Rx] 3 Allergy/AdvReac Type Severity Reaction Status Date / Time codeine AdvReac Abdominal Verified 05/21/18 14:45 Pain All systems: reviewed and no additional remarkable complaints except as stated ( n/v (resolved), abd pain/tenderness that is now greatly improved) Palliative Care-Exam - Constitutional Vitals: Temp Pulse Resp BP Pulse Ox 98.6 F 73 16 134/70 96 05/22/18 10:43 05/22/18 10:43 05/22/18 10:43 05/22/18 10:43 05/22/18 10:43 General appearance: Present: no acute distress - Head Head Exam: Present: normal inspection, normocephalic - Respiratory Respiratory exam: Present: CTAB - Cardiovascular Cardiovascular exam: Present: +S1, +S2 - GI/Abdominal Exam GI/Abdominal exam: Present: normal bowel sounds, soft - Extremities Exam Extremities exam: Present: normal capillary refill, normal inspection - Neurological Exam Neurological exam: Present: alert, oriented X3, strengths equal and symetr throughout - Skin Skin exam: Present: dry, pallor, warm Internal Medicine - CN: Reslt - Labs CBC & Chem 7: 05/22/18 05:00 05/22/18 05:00 Labs: Short CBC 05/22/18 Range/Units 05:00 WBC 1.4 L (4.3-11.1) K/mcL Hgb 9.0 L D (11.5-15.4) g/dL Hct 27.5 L (35.3-44.9) % Plt Count 184 (140-400) K/mcL Neutrophils # 0.2 L (1.6-8.9) K/mcL BMP 05/22/18 05:00 Sodium 140 Potassium 4.3 D Chloride 110 H Carbon Dioxide 24 BUN 6 L Creatinine 0.51 L Glucose 89 Calcium 8.9 - ABG Interpretation ABG results: PT/INR, D-dimer PT 34.3 Seconds (9.4-12.1) H 05/21/18 10:52 Consult Discharge Plan - Plan Referrals: Ysabel Bauer, [facility] [Primary Care Provider] - Palliative Quality Palliative Quality: Screen for Code Status: Yes, Screen for Goals of Care: Yes, Screen for Pain: Yes, If Pain Regimen Started, Initiate Bowel Regimen: NA, Screen for Nausea/Vomitting: Yes Code Status: 05/21/18 14:45 Resuscitation Status: Active [RES] Routine Comment: Resuscitation Status: Full Code
--- NOTE | 2018-05-22 16:31 | Oncology Inp Consult Note ---
<Ysabel Dominguez - Last Filed: 05/22/18 18:09> Date of Encounter: 05/22/18 Time of Encounter: 16:00 Assessment and Plan (1) Colitis Status: Acute Assessment and plan: Neutropenic colitis---ANC 200 CT abdomen/pelvis reveals findings suspicious for infectious/inflammatory colitis involving the transverse, descending and rectum. Patient reports resolution of her abdominal pain today, no signs of acute abdomen, stool is loose but firmer than yesterday Blood cultures-pending Stool cultures-pending Plan: Continue supportive management ATB: D/C Cipro---add Cefepime secondary to neutropenia, Continue Flagyl Add G-CSF per Dr. Aguilar-Ordered neupogen daily until ANC >1.5k No role for colonoscopy, especially in presence of neutropenia Patient reports hematochezia with prior BMs, no hematochezia today-continue to closely monitor Hgb while on Xarelto for recent SVC thrombus, drop in hgb today may be dilutional (2) Metastatic colon cancer to liver Status: Acute Assessment and plan: Metastatic rectal cancer involving the liver, abdominal lymph nodes and possibly lung initially diagnosed 01/2015. She has a recent history of port-related SVC syndrome and has been transitioned to Xarelto after course of lovenox. Current therapy includes dose attenuated XELIRI with Avastin initiated 2017 CT Abdomen/Pelvis reveals Interval decrease in size of the treated hepatic lesions, Upper abdominal lymphadenopathy is not significantly changed compared to the prior study. Diarrhea may be in part secondary to Irinotecan---Treating oncologist may consider dose reduction/change to Xeloda Further treatment decisions per treating oncologist Dr. Stapleton to be discussed on an outpatient basis. - Data of Consult Requesting Physician: Tiago Zhou MD Primary Care Provider: Ysabel Bauer CNP - Consult Narrative Reason for consult: Metastatic rectal cancer History of present illness: Ms. Kate is a 73 year old female with Metastatic rectal cancer involving the liver, abdominal lymph nodes and possibly lung initially diagnosed 01/2015. She has a recent history of port-related SVC syndrome and has been transitioned to Xarelto after course of lovenox. Current therapy includes dose attenuated XELIRI with Avastin initiated 04/23/2018 (see Dr. Stapleton's clinic note for full prior therapy summary). She was asked to present to the ER following her clinic visit with Dr. Stapleton yesterday. Over the past 2 weeks since her last treatment she has developed progressive abdominal cramps, loose stools, decreased energy and appetite. She has noticed some worsening rectal bleeding with and without diarrhea. No fever, chills or symptoms of infection, headache, blurred or double vision. Past Med Surg Social Fam HX - Past Medical History Medical history: cancer, hypertension Additional medical history: colon ca Psychiatric history: no psych history - Past Surgical History Surgical History: other Additional surgical history: carpal tunnel surgery to right hand - Social History Smoking Status: Never smoker Smokeless Tobacco Status: No Alcohol use: none Drug use: none - Family History Grandmother Hx Family Cancer: Yes Medications and Allergies Dexamethasone [Decadron] 4 mg PO BID 04/16/18 [History] Lidocaine/Prilocaine [Emla] 1 appl TP DAILY #30 gm 04/16/18 [Rx] Lisinopril [Zestril] 10 mg PO DAILY 04/16/18 [History] amLODIPine [Norvasc] 10 mg PO DAILY 04/16/18 [History] Capecitabine [Xeloda] 1,500 mg PO BID 04/29/18 [History] Rivaroxaban [Xarelto] 20 mg PO DAILY #30 tablet 05/07/18 [Rx] 3 Allergy/AdvReac Type Severity Reaction Status Date / Time codeine AdvReac Abdominal Verified 05/21/18 14:45 Pain Constitutional: Present: anorexia, fatigue, malaise, weakness, weight loss. Absent: chills, fever(s), headache(s) Eyes: Absent: change in vision Nose, mouth and throat: Absent: dysphagia Cardiovascular: Absent: chest pain, palpitations Respiratory: Absent: cough, dyspnea Gastrointestinal: Present: cramping, diarrhea, hematochezia, nausea. Absent: hematemesis, melena, odynophagia, vomiting Genitourinary: Absent: dysuria, hematuria Musculoskeletal: Present: muscle weakness Integumentary: Absent: wounds Neurological: Absent: focal weakness, frequent falls Hematologic/Lymphatic: Present: as per HPI Oncology - Exam - Constitutional Vitals: Temp Pulse Resp BP Pulse Ox 98.2 F 94 16 139/75 93 05/22/18 15:58 05/22/18 15:58 05/22/18 15:58 05/22/18 15:58 05/22/18 15:58 General appearance: cooperative, no acute distress, no febrile - ENT ENT exam: Present: mucous membranes moist - Respiratory Respiratory exam: Present: CTAB. Absent: respiratory distress - Cardiovascular Cardiovascular exam: Present: RRR, +S1, +S2 - GI/Abdominal GI/Abdominal exam: Present: normal bowel sounds, soft. Absent: firm, guarding, rebound, rigid, tenderness - Extremities Exam Extremities exam: Absent: calf tenderness - Neurological Exam Neurological exam: Present: alert, oriented X3, no focal deficits, strengths equal and symetr throughout - Psychiatric Psychiatric exam: Present: normal affect, normal mood - Skin Skin exam: Present: dry, intact, normal color, warm Oncology - Results Labs: 3 05/22/18 05/22/18 05:00 05:00 WBC 1.4 L RBC 3.03 L Hgb 9.0 L D Hct 27.5 L MCV 90.8 MCH 29.7 MCHC 32.7 RDW 17.9 H Plt Count 184 MPV 10.0 Immature Gran % 0.7 Seg Neutrophils % 16.6 Lymphocytes % 50.4 Monocytes % 30.2 Eosinophils % 1.4 Basophils % 0.7 Neutrophils # 0.2 L Lymphocytes # 0.7 Monocytes # 0.4 Eosinophils # 0.0 Basophils # 0.0 Reactive Lymphocytes Present A Platelet Estimate Normal Anisocytosis 1+ A Macrocytosis Present A Sodium 140 Potassium 4.3 D Chloride 110 H Carbon Dioxide 24 BUN 6 L Creatinine 0.51 L Est GFR ( Amer) > 60 Est GFR (Non-Af Amer) > 60 BUN/Creatinine Ratio 12 Glucose 89 Calculated Osmolality 287 Calcium 8.9 Phosphorus 3.0 Magnesium 1.7 Consult Discharge Plan - Plan Referrals: Ysabel Bauer CNP [Primary Care Provider] - <Maria De Jesus Dutta - Last Filed: 05/23/18 07:29> Date of Encounter: 05/23/18 - Data of Consult Requesting Physician: Tiago Zhou MD Primary Care Provider: Ysabel Bauer CNP - Consult Narrative History of present illness: I examined this patient and my medical decision-making was reviewed with the Advanced Practice Nurse, Ysabel Dominguez. I agree with the documented findings, disposition and treatment plan as described except to the extent set forth below. Abd pain resolving, clinically looks well. Imaging showing extensive colitis. Tumor in liver slightly improved, reviewed results with patient. Adv diet as tolerated. Neupogen, abx. Oncology - Exam - Constitutional Vitals: Temp Pulse Resp BP Pulse Ox 98.5 F 64 16 126/71 96 05/23/18 07:13 05/23/18 07:13 05/23/18 07:13 05/23/18 07:13 05/23/18 07:13 Oncology - Results Labs: 3 05/23/18 05/23/18 05/22/18 04:00 04:00 23:29 WBC 5.9 D RBC 3.50 L Hgb 10.3 L Hct 32.2 L MCV 92.0 MCH 29.4 MCHC 32.0 RDW 17.6 H Plt Count 219 MPV 9.8 Immature Gran % 0.7 Seg Neutrophils % 62.2 Lymphocytes % 15.2 Monocytes % 21.7 Eosinophils % 0.0 Basophils % 0.2 Neutrophils # 3.7 Lymphocytes # 0.9 Monocytes # 1.3 Eosinophils # 0.0 Basophils # 0.0 Reactive Lymphocytes Platelet Estimate Normal Anisocytosis Macrocytosis Sodium 139 Potassium 3.9 Chloride 108 H Carbon Dioxide 22 L BUN 6 L Creatinine 0.53 L Est GFR ( Amer) > 60 Est GFR (Non-Af Amer) > 60 BUN/Creatinine Ratio 11 Glucose 93 Calculated Osmolality 285 Calcium 9.5 Phosphorus Magnesium Troponin I < 0.03 Stl C. cayetanensis PCR Stool Rotavirus A PCR Stl Adenov F 40/41 PCR Stool Astrovirus (PCR) Stool Campylobacter PCR Stl C. diff Tox A/B PCR Stool Cryptosporidium PCR Stl Sh Tox Pr E STEC PCR Stool E coli O157 PCR Stl Enterotoxigenic E PCR Stool EPEC (PCR) Stool EAEC (PCR) Stl E. histolytica PCR Stool Giardia Lamblia PCR Stool Salmonella PCR Stool Sapovirus (PCR) Stl P. shigelloides PCR Stl Shigella/EIEC PCR St Y.enterocolitica PCR Stool Vibrio (PCR) Stl Vibrio cholerae PCR Stl Norovirus GI/GII PCR Stl GI Panel (PCR) Com 3 05/22/18 05/22/18 05/22/18 18:36 05:00 05:00 WBC 1.4 L RBC 3.03 L Hgb 9.0 L D Hct 27.5 L MCV 90.8 MCH 29.7 MCHC 32.7 RDW 17.9 H Plt Count 184 MPV 10.0 Immature Gran % 0.7 Seg Neutrophils % 16.6 Lymphocytes % 50.4 Monocytes % 30.2 Eosinophils % 1.4 Basophils % 0.7 Neutrophils # 0.2 L Lymphocytes # 0.7 Monocytes # 0.4 Eosinophils # 0.0 Basophils # 0.0 Reactive Lymphocytes Present A Platelet Estimate Normal Anisocytosis 1+ A Macrocytosis Present A Sodium 140 Potassium 4.3 D Chloride 110 H Carbon Dioxide 24 BUN 6 L Creatinine 0.51 L Est GFR ( Amer) > 60 Est GFR (Non-Af Amer) > 60 BUN/Creatinine Ratio 12 Glucose 89 Calculated Osmolality 287 Calcium 8.9 Phosphorus 3.0 Magnesium 1.7 Troponin I Stl C. cayetanensis PCR Not detected Stool Rotavirus A PCR Not detected Stl Adenov F 40/41 PCR Not detected Stool Astrovirus (PCR) Not detected Stool Campylobacter PCR Not detected Stl C. diff Tox A/B PCR Not detected Stool Cryptosporidium PCR Not detected Stl Sh Tox Pr E STEC PCR Not detected Stool E coli O157 PCR Not detected Stl Enterotoxigenic E PCR Not detected Stool EPEC (PCR) Not detected Stool EAEC (PCR) Not detected Stl E. histolytica PCR Not detected Stool Giardia Lamblia PCR Not detected Stool Salmonella PCR Not detected Stool Sapovirus (PCR) Not detected Stl P. shigelloides PCR Not detected Stl Shigella/EIEC PCR Not detected St Y.enterocolitica PCR Not detected Stool Vibrio (PCR) Not detected Stl Vibrio cholerae PCR Not detected Stl Norovirus GI/GII PCR Not detected Stl GI Panel (PCR) Com See below Inpatient Charges Provider: Dr. Jena Dutta Consult - Inpatient: [id number]
[2018-05-22] MEDS ORDERED: *HR* Rivaroxaban 10 MG TABLET PO SCH (17:00)
[2018-05-22 21:09] LABS: Adenovirus F 40/41 PCR Not detected (Not detect); Astrovirus PCR Not detected (Not detect); C.difficile Toxin A/B by PCR Not detected (Not detect); Campylobacter by PCR Not detected (Not detect); Cryptosporidium by PCR Not detected (Not detect); Cyclospora cayetanensis PCR Not detected (Not detect); E. coli O157 by PCR Not detected (Not detect); Entamoeba histolytica PCR Not detected (Not detect); Enteroaggregative E.coli(EAEC) Not detected (Not detect); Enteropathogenic E.coli(EPEC) Not detected (Not detect); Enterotoxigenic E.coli (ETEC) Not detected (Not detect); Giardia lamblia PCR Not detected (Not detect); Norovirus GI/GII PCR Not detected (Not detect); Plesiomonas shigelloides PCR Not detected (Not detect); Rotavirus A PCR Not detected (Not detect); Salmonella PCR Not detected (Not detect); Sapovirus PCR Not detected (Not detect); Shig/EnteroinvasiveE coli EIEC Not detected (Not detect); Shigalike tox-prod E coli STEC Not detected (Not detect); Vibrio PCR Not detected (Not detect); Vibrio cholerae PCR Not detected (Not detect); Yersinia enterocolitica PCR Not detected (Not detect)
--- NOTE | 2018-05-22 23:32 | Event Note ---
Date of Encounter: 05/22/18 Time of Encounter: 23:07 Alerted by pts. nurse LIZZ Peraza that pt. was complaining of CP in let shoulder that was radiating to her left breast and central chest. Went to see pt. who was resting in bed. Pt. stated her mother had suffered an TN and she had risk factors. Reported similar sx that was usually gas but this was different d/t pain in back and left shoulder blade. Instructed nurse to order stat EKG, stat troponin, and stat one view portable CXR. Remained w/pt. while EKG done which showed NSR and normal ECG. Called lab to draw stat troponin. Will await results of CXR and troponin. Pt. to be monitored closely in the meantime.
[2018-05-22] MEDS ORDERED: Simethicone 80 MG TAB.CHEW PO PRN (23:34)
[2018-05-22] MEDS: Cefepime HCl 2,000 MG in 0.9 % Sodium Chloride Mini Bag 100 ML IVPB SCH (23:58)
[2018-05-23 04:32] LABS: Basophils % 0.2 %; Hematocrit 32.2 % (35.3-44.9); Hemoglobin 10.3 g/dL (11.5-15.4); Immature Granulocytes % 0.7 % (0-4); Lymphocytes # 0.9 K/mcL (0.6-4.6); Lymphocytes % 15.2 %; Mean Corpuscular Hemoglobin 29.4 pg (28.0-33.3); Mean Platelet Volume 9.8 fL (9.4-12.4); Monocytes # 1.3 K/mcL (0.0-1.3); Monocytes % 21.7 %; Platelet Count 219 K/mcL (140-400); Red Cell Distribution Width 17.6 % (11.5-14.5); Segmented Neutrophils % 62.2 %
[2018-05-23 04:48] LABS: BUN/Creatinine Ratio 11 (6-26); Blood Urea Nitrogen 6 mg/dL (8-23); Calcium 9.5 mg/dL (8.6-10.3); Carbon Dioxide 22 mEq/L (23-29); Chloride 108 mEq/L (98-107); Glucose 93 mg/dL (70-105); Osmolality,Calculated 285 (280-300); Potassium 3.9 mEq/L (3.5-5.1); Sodium 139 mEq/L (136-145); eGFR For Non-African Americans > 60 (> 60)
[2018-05-23 05:02] LABS: Neutrophils # 3.7 K/mcL (1.6-8.9)
[2018-05-23 06:34] LABS: Platelet Estimate Normal (Normal)
[2018-05-23] MEDS: Cefepime HCl 2,000 MG in 0.9 % Sodium Chloride Mini Bag 100 ML IVPB SCH (10:01)
[2018-05-23] MEDS: MetroNIDAZOLE 500 MG/100 ML 500 MG/100 ML BAG IVPB SCH (10:02)
[2018-05-23] MEDS: amLODIPine 5 MG TABLET PO SCH (10:03)
[2018-05-23 10:35] VITALS: BP 116/74
--- NOTE | 2018-05-23 10:42 | Internal Med Progress Note ---
<Lupe Escudero - Last Filed: 05/23/18 11:51> Hospitalist Progress Note - Encounter Date of Encounter: 05/23/18 Time of Encounter: 08:45 - Subjective Interval History: Patient seen and examined. No acute events overnight. Patient is resting comfortably in bed. Patient states shes better. States she has no abdominal pain. Stools are formed without blood. Reports one episode of vomiting saliva early this morning around ~4am. Patient states it was due to hunger. Patient is on liquid diet and states she needs solid food. Had episode of chest pain last night that patient reports was due to gas. EKG, troponin, and CXR were all negative. Patient states pain went away after gas medication. Denies chest pain or shortness of breath at this time. Denies nausea/vomiting. Denies swelling. - Exam Vitals: Temp Pulse Resp BP Pulse Ox 98.2 F 69 16 116/74 98 05/23/18 10:33 05/23/18 10:33 05/23/18 10:33 05/23/18 10:33 05/23/18 10:33 Exam: General: Alert and oriented x3. No acute distress. Head: atraumatic, normocephalic. Eye: pupils equal and round. Sclera anicteric. EOMI. Mouth: oral mucosa moist. Normal oropharynx. Neck: supple. Trachea midline. Lungs: CTAB. No rhonchi, rales, or wheezing. No respiratory distress. No accessory muscle use. Cardiovascular: Normal S1 & S2. No rubs or gallops. No JVD. Pulse regular. Abdomen: Normal bowel sounds. Nontender. No guarding, no rigidity, no rebound. Extremities: No joint swelling, edema, or clubbing. Nontender. Skin: warm, dry, and intact. - Assessment and Plan (1) Colitis Status: Acute Assessment and Plan: Patient presents with colitis with bloody diarrhea s/p chemotherapy with leukopenia. Stool panel is negative. Blood cultures drawn 05/21 x2 sets are NGTD. Improved. Abdominal pain and bloody stools resolved. Advance to regular diet. Cipro discontinued. Day 2 of cefepime started on 05/22 for neutropenic colitis. Day 3 of flagyl. GI consulted. Colonoscopy as outpatient after resolution. (2) Neutropenia Status: Acute Assessment and Plan: History of chemotherapy for rectal cancer with liver mets. Last treatment 2 weeks ago. Acute episode of colitis. On admission on 05/21, WBC low at 1.9 and absolute neutrophil count low at 400. On 05/22, WBC decreased to 1.4 and ANC decreased to 200. G-CSF and Neupogen started on 05/22. Today on 05/23, WBC improved to 5.9 and ANC improved to 3700. Resolved. Neupogen discontinued today. Neutropenic precautions lifted. Continue cefepime and flagyl. (3) Metastatic colon cancer to liver Status: Acute Assessment and Plan: History of rectal cancer with liver mets. Chemotherapy since 2014. Last chemotherapy 2 weeks ago. Oncology following and outpatient follow up. 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 Continue xarelto. (5) Hypertension Status: Acute Assessment and Plan: Continue amlodipine and lisinopril (6) DVT prophylaxis Status: Acute Assessment and Plan: On xarelto DVT Prophylaxis: On xarelto - Time Spent with Patient Total time spent is greater than 50% in coordination of care (as documented) at patient's floor/unit and/or counseling patient: Internal Medicine: Result - Labs CBC & Chem 7: 05/23/18 04:00 05/23/18 04:00 Labs: Short CBC 05/23/18 Range/Units 04:00 WBC 5.9 D (4.3-11.1) K/mcL Hgb 10.3 L (11.5-15.4) g/dL Hct 32.2 L (35.3-44.9) % Plt Count 219 (140-400) K/mcL Neutrophils # 3.7 (1.6-8.9) K/mcL BMP 05/23/18 04:00 Sodium 139 Potassium 3.9 Chloride 108 H Carbon Dioxide 22 L BUN 6 L Creatinine 0.53 L Glucose 93 Calcium 9.5 Cardiac Enzymes 05/22/18 Range/Units 23:29 Troponin I < 0.03 (< 0.04) ng/mL - ABG Interpretation ABG results: PT/INR, D-dimer PT 34.3 Seconds (9.4-12.1) H 05/21/18 10:52 - Impressions Impressions Chest X-Ray 05/22/18 23:16 IMPRESSION: No acute findings. D/ / 05/23/2018 07:19:43 Jamison Ramirez MD / [email or web address] Interpreting Provider: Jamsion Ramirez MD Consult Discharge Plan - Plan Instructions: Ulcerative Colitis (DC) Additional Instructions: follow up with PCP. Referrals: Ysabel Bauer, SOFTWARE RELEASE MANAGER [Primary Care Provider] - Prescriptions: Ciprofloxacin HCl [Cipro] 750 mg PO BID 12 Days #72 tab metroNIDAZOLE [Metronidazole] 500 mg PO TID 12 Days #36 tablet <Gloria Pak A - Last Filed: 05/23/18 15:55> Hospitalist Progress Note - Encounter Date of Encounter: 05/23/18 - Exam Vitals: Temp Pulse Resp BP Pulse Ox 98.2 F 69 16 116/74 98 05/23/18 10:33 05/23/18 10:33 05/23/18 10:33 05/23/18 10:33 05/23/18 10:33 - Assessment and Plan (1) Acute thrombosis of superior vena cava Status: Acute (2) Hypertension Status: Acute (3) Metastatic colon cancer to liver Status: Acute (4) Colitis Status: Acute (5) DVT prophylaxis Status: Acute (6) Neutropenia Status: Acute - Time Spent with Patient Total time spent is greater than 50% in coordination of care (as documented) at patient's floor/unit and/or counseling patient: Internal Medicine: Result - Labs CBC & Chem 7: 05/23/18 11:04 05/23/18 04:00 Labs: Short CBC 05/23/18 05/23/18 Range/Units 04:00 11:04 WBC 5.9 D 8.8 (4.3-11.1) K/mcL Hgb 10.3 L 10.1 L (11.5-15.4) g/dL Hct 32.2 L 30.9 L (35.3-44.9) % Plt Count 219 238 (140-400) K/mcL Neutrophils # 3.7 6.5 (1.6-8.9) K/mcL BMP 05/23/18 04:00 Sodium 139 Potassium 3.9 Chloride 108 H Carbon Dioxide 22 L BUN 6 L Creatinine 0.53 L Glucose 93 Calcium 9.5 Cardiac Enzymes 05/22/18 Range/Units 23:29 Troponin I < 0.03 (< 0.04) ng/mL - ABG Interpretation ABG results: PT/INR, D-dimer PT 34.3 Seconds (9.4-12.1) H 05/21/18 10:52 - Impressions Impressions Chest X-Ray 05/22/18 23:16 IMPRESSION: No acute findings. D/ / 05/23/2018 07:19:43 Jamison Ramirez MD / [email or web address] Interpreting Provider: Jamison Ramirez MD - Attending Attestation Seen and assessed. Agree with plan per resident Plan Colitis. Infectious vs inflammatory. Continue IV fluids, cipro and flagyl. Advance diet as tolerated. Plan for discharge today <Lupe Escudero - Last Filed: 05/23/18 11:51> (5) Hypertension Qualifiers: Hypertension type: essential hypertension Qualified Code(s): I10 - Essential (primary) hypertension <Gloria Pak - Last Filed: 05/23/18 15:55> (2) Hypertension Qualifiers: Hypertension type: essential hypertension Qualified Code(s): I10 - Essential (primary) hypertension
[2018-05-23 11:57] LABS: Hematocrit 30.9 % (35.3-44.9); Hemoglobin 10.1 g/dL (11.5-15.4); Mean Corpuscular HGB Conc 32.7 g/dL (31.6-35.5); Mean Corpuscular Hemoglobin 30.1 pg (28.0-33.3); Mean Corpuscular Volume 92.2 fL (83.0-100.0); Mean Platelet Volume 10.2 fL (9.4-12.4); Nucleated Red Blood Cells 0.2 /100 WBC (0); Platelet Count 238 K/mcL (140-400); Red Blood Count 3.35 M/mcL (3.82-4.97); Red Cell Distribution Width 17.9 % (11.5-14.5)
[2018-05-23 12:18] LABS: Lymphocytes # 1.6 K/mcL (0.6-4.6); Monocytes # 0.4 K/mcL (0.0-1.3); Neutrophils # 6.5 K/mcL (1.6-8.9)
[2018-05-23 12:20] LABS: Anisocytosis 1+ (Not Present); Platelet Estimate Normal (Normal)
--- NOTE | 2018-05-23 12:34 | Event Note ---
Date of Encounter: 05/23/18 Time of Encounter: 09:15 Patient pleasant - up in room. Has been tolerating full liquid and asking for solid food. No further abd pain, n/v, or diarrhea and wants to go home. I followed up regarding goals of care discussion - patient has forms to start this conversation with her daughter, but has not done so and desires to do this after discharge. Palliative not currently managing any symptoms and will sign off. Please reconsult if needed.
--- NOTE | 2018-05-23 12:56 | Discharge Summary ---
- NOTES TO OUTPATIENT PROVIDER Notes to Outpatient Provider: Complete 12 day course of cipro and flagyl. Follow up with GI Orders not resulted at time of discharge: Pending orders 05/21/18 16:55 Culture,Blood [BC] Routine 05/24/18 04:00 BMP [Basic Metabolic Panel] AM 0400 Complete Blood Count [HEME] AM 0400 05/25/18 04:00 BMP [Basic Metabolic Panel] AM 0400 Complete Blood Count [HEME] AM 0400 05/26/18 04:00 BMP [Basic Metabolic Panel] AM 0400 Complete Blood Count [HEME] AM 0400 05/27/18 04:00 BMP [Basic Metabolic Panel] AM 0400 Complete Blood Count [HEME] AM 0400 05/28/18 04:00 BMP [Basic Metabolic Panel] AM 0400 Complete Blood Count [HEME] AM 0400 Date of Encounter: 05/23/18 Time of Encounter: 12:00 - Discharge Diagnosis (1) Colitis Priority: Primary Status: Acute Assessment and Plan: 73 year old female with pmh of hypertension, peripheral neuropathy and rectal cancer with metastasis to the liver on chemotherapy since 2014 presenting with complaints of nausea, vomiting abdominal pain, diarrhea and rectal bleeding of one week duration. Patient had chemotherapy about 2 weeks ago. She says she is typically sick after chemotherapy with some diarrhea but has had progressive weakness, severe , nausea and vomiting and bloody diarrhea. She describes the abdominal pain as dull steady and radiating across the abdomen. she denies any fevers or chills. She went to her oncologist today for a follow up who referred her to the ER She was assessed with colitis with bloody diarrhea s/p chemotherapy with leukopenia. She was started on ciprofloxacin and flagyl which was switched to cefepime and flagyl due to her neutropenia. She received a dose of neupogen with improvement in her neutropenia. She was seen by GI as well who will follow up with her as an outpatient. She improved with antibiotics and IV fluids and was able to be have her diet advanced as well as her abdominal pain resolved She was discharged in a stable condition (2) Acute thrombosis of superior vena cava Priority: Primary Status: Acute Assessment and Plan: History of SVC syndrome. Continue xarelto. (3) Hypertension Priority: Primary Status: Acute Qualifiers: Hypertension type: essential hypertension Qualified Code(s): I10 - Essential (primary) hypertension (4) Metastatic colon cancer to liver Priority: Primary Status: Acute (5) DVT prophylaxis Priority: Primary Status: Acute (6) Neutropenia Priority: Primary Status: Acute Qualifiers: Qualified Code(s): D70.9 - Neutropenia, unspecified Hospital course: Ms. Kate is a 73 year old female - Time Spent with Patient Total time spent providing and/or coordinating discharge services: - Discharge Medications Prescriptions: Ciprofloxacin HCl [Cipro] 750 mg PO BID 12 Days #72 tab metroNIDAZOLE [Metronidazole] 500 mg PO TID 12 Days #36 tablet Home Medications: Dexamethasone [Decadron] 4 mg PO BID 04/16/18 [History] Lidocaine/Prilocaine [Emla] 1 appl TP DAILY #30 gm 04/16/18 [Rx] Lisinopril [Zestril] 10 mg PO DAILY 04/16/18 [History] amLODIPine [Norvasc] 10 mg PO DAILY 04/16/18 [History] Capecitabine [Xeloda] 1,500 mg PO BID 04/29/18 [History] Rivaroxaban [Xarelto] 20 mg PO DAILY #30 tablet 05/07/18 [Rx] Ciprofloxacin HCl [Cipro] 750 mg PO BID 12 Days #72 tab 05/23/18 [Rx] metroNIDAZOLE [Metronidazole] 500 mg PO TID 12 Days #36 tablet 05/23/18 [Rx] Allergies/Adverse Reactions: 3 Allergy/AdvReac Type Severity Reaction Status Date / Time codeine AdvReac Abdominal Verified 05/21/18 14:45 Pain Date of admission: 05/21/18 14:44 Primary care physician: Ysabel Bauer CNP Consults: 05/21/18 15:02 Consult to Oncology [CONS] Routine Consulting Provider: [facility] Reason for Consult: metastatic liver cancer with new colitis Call Completed: No 05/21/18 15:09 Consult to Gastroenterology [CONS] Routine Consulting Provider: [facility] [place] Reason for Consult: colitis s/p chemotherapy with rectal bleeding Call Completed: No 05/21/18 15:10 Consult to Palliative Care [CONS] Routine Comment: Consulting Provider: [facility] [place] Reason for Consult: metastatic cancer- goals of care Call Completed: No - Constitutional Vitals: Temp Pulse Resp BP Pulse Ox 98.2 F 69 16 116/74 98 05/23/18 10:33 10/12/18 10:33 05/23/18 10:33 05/23/18 10:33 05/23/18 10:33 General appearance: Present: mild distress Exam: General: Alert and oriented x3. No acute distress. Head: atraumatic, normocephalic. Eye: pupils equal and round. Sclera anicteric. EOMI. Mouth: oral mucosa moist. Normal oropharynx. Neck: supple. Trachea midline. Lungs: CTAB. No rhonchi, rales, or wheezing. No respiratory distress. No accessory muscle use. Cardiovascular: Normal S1 & S2. No rubs or gallops. No JVD. Pulse regular. Abdomen: Normal bowel sounds. Nontender. No guarding, no rigidity, no rebound. Extremities: No joint swelling, edema, or clubbing. Nontender. Skin: warm, dry, and intact. - Patient Status Disposition: Home, Self-Care Condition: Fair - Discharge Instructions Instructions: Ulcerative Colitis (DC) Follow Up With: Ysabel Bauer, PEDIATRIC SPORTS MEDICINE SPECIALIST [Primary Care Provider] - Additional Instructions: follow up with PCP.
--- NOTE | 2018-05-23 13:25 | Oncology Inp Progress Note ---
Date of Encounter: 05/23/18 Time of Encounter: 12:00 (1) Colitis Status: Acute Assessment and plan: Admitted with Neutropenic colitis CT abdomen/pelvis reveals findings suspicious for infectious/inflammatory colitis involving the transverse, descending and rectum. Neutropenia----resolved, ANC 3.7 this AM with repeat ANC 6.7 this afternoon. She has remained afebrile since admission for >48 hours She denies abdominal pain, no sign of acute abdomen, she denies nausea, vomiting. Her bowel movements are firming and non-bloody Stool cultures and C Diff-Negative Blood cultures-prelim negative Hgb stable at 10.1 Plan: Patient is hopeful for discharge today, she clinically appears well, her neutropenia has resolved, she remains afebrile and tolerating a full liquid diet She is planned to discharge once she tolerates a regular diet Recommend transition to Cipro at discharge for a total of 14 days since beginning of tx We discussed s/s to monitor for and when to call/present to ER She is planned to follow up with Dr. Stapleton next week (2) Metastatic colon cancer to liver Status: Acute Assessment and plan: Metastatic rectal cancer involving the liver, abdominal lymph nodes and possibly lung initially diagnosed 01/2015. She has a recent history of port-related SVC syndrome and has been transitioned to Xarelto after course of lovenox. Current therapy includes dose attenuated XELIRI with Avastin initiated 2017 CT Abdomen/Pelvis reveals Interval decrease in size of the treated hepatic lesions, Upper abdominal lymphadenopathy is not significantly changed compared to the prior study. Treating oncologist will likely consider dose reduction/change to Xeloda/ Irinotecan and potential need for neulasta with upcoming cycles Further treatment decisions per treating oncologist Dr. Stapleton to be discussed on an outpatient basis. Oncology: Subj Interval history: Ms. Kate is resting in bed. She clinically appears very well. Her family are at bedside. She denies pain, nausea, vomiting, chest pain, SOB, weakness, fever or chills. She has had about 2 bowel movements within the past 24 hours which were loose and non-bloody. She is tolerated a full liquid diet. She is feeling much improved and asking to go home. - Constitutional Vitals: Vital Signs Temp Pulse Resp BP Pulse Ox 05/23/18 10:33 98.2 F 69 16 116/74 98 05/23/18 10:07 98.0 F 76 16 132/73 98 05/23/18 07:13 98.5 F 64 16 126/71 96 05/23/18 05:17 97.9 F 70 14 112/69 95 05/22/18 22:55 98.4 F 78 16 119/64 96 05/22/18 19:19 98.3 F 91 14 119/70 94 05/22/18 15:58 98.2 F 94 16 139/75 93 Intake and Output 05/22/18 05/23/18 05/23/18 23:59 07:59 15:59 Intake Total 3020 / 3020 440 / 440 860 / 860 Output Total 200 / 200 300 / 300 Balance 2820 / 2820 140 / 140 860 / 860 Intake: IV Fluids 2300 / 2300 200 / 200 200 / 200 0.9 % Sodium Chloride 1,000 ML 1000 / 1000 @ 100 mls/hr IVC .Q10H [facility] Rx#: [id number] Maxipime 2,000 MG In 0.9 % 100 / 100 100 / 100 Sodium Chloride (Mini-Bag +) 100 ML @ 200 mls/hr IVPB Q8HR [facility] Rx#:[id number] Cipro Premix 400 MG/200 ML 400 200 / 200 mg In 200 ml @ 200 mls/hr IVPB Q12HR [facility] Rx#:[id number] Flagyl Premix 500 MG/100 ML 500 100 / 100 100 / 100 100 / 100 mg In 100 ml @ 100 mls/hr IVPB Q8HR [facility] Rx#:[id number] Oral 720 / 720 240 / 240 660 / 660 Output: Urine 200 / 200 300 / 300 Other: Meal Dinner Breakfast Percent of Meal Consumed 100% Stool Size Small Stool Consistency loose Stool Color Brown # Bowel Movements 0 0 Weight 64.1 kg Patient Weight 05/23/18 23:59 Weight 64.1 kg General appearance: cooperative, no acute distress, no febrile - Head Head exam: Present: atraumatic - ENT ENT exam: Present: mucous membranes moist - Respiratory Respiratory exam: Present: CTAB. Absent: respiratory distress - Cardiovascular Cardiovascular exam: Present: RRR, +S1, +S2 - GI/Abdominal GI/Abdominal exam: Present: normal bowel sounds, soft. Absent: distended, guarding, rebound, rigid, tenderness - Extremities Exam Extremities exam: Absent: calf tenderness - Neurological Exam Neurological exam: Present: alert, oriented X3, no focal deficits, strengths equal and symetr throughout - Psychiatric Psychiatric exam: Present: normal affect, normal mood - Skin Skin exam: Present: dry, intact, normal color, warm Oncology: Obj Data - Labs CBC & Chem 7: 05/23/18 11:04 05/23/18 04:00 - Impressions Impressions Chest X-Ray 05/22/18 23:16 IMPRESSION: No acute findings. D/ / 05/23/2018 07:19:43 Jamison Ramirez MD / [email or web address] Interpreting Provider: Jamison Ramirez MD - ABG Interpretation ABG results: PT/INR, D-dimer PT 34.3 Seconds (9.4-12.1) H 05/21/18 10:52 Consult Discharge Plan - Plan Instructions: Ulcerative Colitis (DC) Additional Instructions: follow up with PCP. Referrals: Ysabel Bauer CNP [Primary Care Provider] - Prescriptions: Ciprofloxacin HCl [Cipro] 750 mg PO BID 12 Days #72 tab metroNIDAZOLE [Metronidazole] 500 mg PO TID 12 Days #36 tablet Inpatient Charges Provider: Ysabel Woods CNP Follow up - Inpatient: [id number]
--- NOTE | 2018-05-24 09:30 | Electrocardiograph Report ---
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
--- NOTE | 2018-05-24 11:29 | Electrocardiograph Report ---
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
== END 2018-05-23 14:38 | disposition home or self-care (01) ==
LOC: 3ANU 09:42 → EMEROOARM 09:42 → 3ANU 16:29
PROVIDERS: ADMIT Internal Medicine; ATTEND Internal Medicine

== ENCOUNTER 2019-01-23 13:25 | Inpatient (IN) ==
--- NOTE | 2019-01-23 13:51 | Emergency Department Note ---
Disposition Forms: ED Satisfaction Letter, Work/School Release General Adult HPI - General Chief complaint: ED Abdominal Pain Stated complaint: abd pain; stage 4 CA Time Seen by Provider: 01/23/19 13:38 Source: patient Limitations: no limitations - History of Present Illness Pain Scale: 9 - Related Data Home Medications Medication Instructions Recorded Confirmed OxyCODONE Immed Rel [Roxicodone 5 5 mg PO Q4HR PRN 12/23/18 01/16/19 MG] Tramadol HCl [Ultram] 50 mg PO TID PRN 12/23/18 01/16/19 amLODIPine [Norvasc] 5 mg PO DAILY 12/23/18 01/16/19 Previous Rx's Medication Instructions Recorded Lidocaine/Prilocaine [Emla] 1 appl TP DAILY #30 gm 04/16/18 Lisinopril [Zestril] 10 mg PO DAILY #30 tablet 09/30/18 Rivaroxaban [Xarelto] 20 mg PO DAILY #30 tablet 09/30/18 OLANZapine [Zyprexa] 10 mg PO AD #24 tablet 12/09/18 Doxycycline 100 mg PO BID #60 capsule 12/23/18 Minocycline [Minocin] 50 mg PO DAILY #30 capsule 12/25/18 Dexamethasone [Decadron] 4 mg PO BID #10 tab 01/14/19 Ondansetron [Zofran ODT] 8 mg SL Q8H PRN #90 tab 01/14/19 Allergies Allergy/AdvReac Type Severity Reaction Status Date / Time codeine AdvReac Abdominal Verified 01/16/19 09:02 Pain Past Medical History - Past Medical History Medical history: Reports: cancer, hypertension, other Surgical history: Reports: other Psychiatric history: Reports: no psych history PROFESSOR OF ENGINEERING history: Reports: no PROFESSOR OF ENGINEERING history - Social History Smoking Status: Never smoker Smokeless Tobacco Status: No Alcohol use: Reports: none Drug use: Reports: none Physical Exam - General Limitations: no limitations General appearance: alert, in no apparent distress Course Vital Signs Temperature 98.2 F 01/23/19 13:32 Pulse Rate 79 01/23/19 13:32 Respiratory Rate 18 01/23/19 13:32 Blood Pressure 123/70 01/23/19 13:32 O2 Sat by Pulse Oximetry 97 01/23/19 13:32 Temperature 98.2 F 01/23/19 13:32 Pulse Rate 79 01/23/19 13:32 Respiratory Rate 18 01/23/19 13:32 Blood Pressure 123/70 01/23/19 13:32 O2 Sat by Pulse Oximetry 97 01/23/19 13:32 Oxygen Delivery Oxygen Delivery Room Air Medical Decision Making - Lab Data Lab Results 01/23/19 01/23/19 01/23/19 Range/Units 13:40 14:11 14:11 MPV TNP PT 34.0 H (9.4-12.1) Seconds INR 3.0 APTT 49.7 H (26.0-36.0) Seconds Uric Acid (2.3-7.6) mg/dL Creatine Kinase (30-223) Units/L Urine Color Dark Yellow (Yellow) Urine Clarity Slightly Hazy (Clear) Urine pH 5.5 (5.0-8.0) pH Units Ur Specific [place] 1.016 (1.010-1.025) Urine Protein Negative (Neg-Trace) mg/dL Urine Glucose (UA) Normal (Normal) mg/dL Urine Ketones Trace H (Negative) mg/dL Urine Blood Negative (Negative) Urine Nitrite Negative (Negative) Urine Bilirubin Small H (Negative) Urine Urobilinogen Normal (Normal) mg/dL Ur Leukocyte Esterase Trace H (Negative) Urine Microscopic RBC 0-3 (0-3) per hpf Urine Microscopic WBC 0-3 (0-3) per hpf Ur Squamous Epith Cells Many H (None-Few) per lpf Ur Renal Epithelial Cell Few (None-Few) per hpf Urine Bacteria Few (None-Few) per hpf Hyaline Casts Few (None-Few) per lpf Ur Culture Indicated? YES A (NO) 01/23/19 Range/Units 14:11 MPV PT (9.4-12.1) Seconds INR APTT (26.0-36.0) Seconds Uric Acid 5.3 (2.3-7.6) mg/dL Creatine Kinase 79 (30-223) Units/L Urine Color (Yellow) Urine Clarity (Clear) Urine pH (5.0-8.0) pH Units Ur Specific [place] (1.010-1.025) Urine Protein (Neg-Trace) mg/dL Urine Glucose (UA) (Normal) mg/dL Urine Ketones (Negative) mg/dL Urine Blood (Negative) Urine Nitrite (Negative) Urine Bilirubin (Negative) Urine Urobilinogen (Normal) mg/dL Ur Leukocyte Esterase (Negative) Urine Microscopic RBC (0-3) per hpf Urine Microscopic WBC (0-3) per hpf Ur Squamous Epith Cells (None-Few) per lpf Ur Renal Epithelial Cell (None-Few) per hpf Urine Bacteria (None-Few) per hpf Hyaline Casts (None-Few) per lpf Ur Culture Indicated? (NO)
[2019-01-23] MEDS ORDERED: 0.9 % Sodium Chloride 1,000 ML IVC ONE (13:53)
[2019-01-23] MEDS ORDERED: *HR* HYDROmorphone (PF) 1 MG/ML SYRINGE IVP ONE ×2 (13:53→17:19)
[2019-01-23] MEDS ORDERED: Ondansetron 4 MG/2 ML VIAL IVP ONE ×2 (13:53→17:19)
[2019-01-23 13:54] LABS: Bilirubin,Urine Small (Negative); Blood,Urine Negative (Negative); Color,Urine Dark Yellow (Yellow); Glucose,Urine (UA) Normal (Normal); Ketones,Urine Trace mg/dL (Negative); Leukocyte Esterase,Urine Trace (Negative); Nitrite,Urine Negative (Negative); PH,Urine 5.5 pH Units (5.0-8.0); Protein,Urine Negative (Neg-Trace); Specific Gravity,Urine 1.016 (1.010-1.025); Urobilinogen,Urine Normal (Normal)
[2019-01-23] MEDS ORDERED: Isovue-370 500 ML BOTTLE IVP ONE (13:54)
[2019-01-23 13:56] LABS: Hyaline Casts,Urine Few per lpf (None-Few); RBC,Urine 0-3 per hpf (0-3); Squamous Epithelial Cell,Urine Many per lpf (None-Few); WBC,Urine 0-3 per hpf (0-3)
[2019-01-23 14:00] LABS: Clarity,Urine Slightly Hazy (Clear)
[2019-01-23 14:16] LABS: Bacteria,Urine Few per hpf (None-Few); Renal Epithelial Cells,Urine Few per hpf (None-Few)
[2019-01-23 14:28] LABS: Hemoglobin 11.9 g/dL (11.5-15.4)
[2019-01-23 14:30] LABS: Hematocrit 39.1 % (35.3-44.9); Immature Platelets 7.7 % (1.1-6.1); Mean Corpuscular HGB Conc 30.4 g/dL (31.6-35.5); Mean Corpuscular Hemoglobin 24.7 pg (28.0-33.3); Mean Corpuscular Volume 81.1 fL (83.0-100.0); Red Blood Count 4.82 M/mcL (3.82-4.97); Red Cell Distribution Width 19.9 % (11.5-14.5); White Blood Count 4.8 K/mcL (4.3-11.1)
[2019-01-23 14:35] LABS: Platelet Count 74 K/mcL (140-400)
[2019-01-23 14:37] LABS: Activated Partial Thrombo Time 49.7 Seconds (26.0-36.0)
[2019-01-23 14:40] LABS: Uric Acid 5.3 mg/dL (2.3-7.6)
[2019-01-23 14:44] LABS: Alanine Aminotransferase 23 Units/L (7-52); Albumin 3.4 g/dL (3.5-5.7); Albumin/Globulin Ratio 1.1 (1.1-2.2); Alkaline Phosphatase 318 Units/L (34-104); Aspartate Amino Transferase 39 Units/L (13-39); BUN/Creatinine Ratio 16 (6-26); Bilirubin,Direct 0.3 mg/dL (0.0-0.2); Bilirubin,Indirect 0.8 mg/dL (0.0-1.2); Bilirubin,Total 1.1 mg/dL (0.3-1.0); Blood Urea Nitrogen 11 mg/dL (8-23); Calcium 9.2 mg/dL (8.6-10.3); Carbon Dioxide 24 mEq/L (23-29); Chloride 99 mEq/L (98-107); Globulin 3.2 g/dL (2.4-3.5); Glucose 113 mg/dL (70-105); Lipase 20 Units/L (11-82); Osmolality,Calculated 274 (280-300); Potassium 3.9 mEq/L (3.5-5.1); Sodium 132 mEq/L (136-145); Total Protein 6.6 g/dL (6.4-8.9); eGFR For African Americans > 60 (> 60); eGFR For Non-African Americans > 60 (> 60)
--- NOTE | 2019-01-23 15:03 | Emergency Department Note ---
Disposition Clinical Impression: Metastatic colon cancer to liver, Hematochezia Abdominal pain Qualifiers: Abdominal location: generalized Qualified Code(s): R10.84 - Generalized abdominal pain Disposition: Admitted As Inpatient Condition: Fair Forms: ED Satisfaction Letter, Work/School Release Time of Disposition: 17:22 Abdominal Pain HPI - General Chief Complaint: ED Abdominal Pain Stated Complaint: abd pain; stage 4 CA Time Seen by Provider: 01/23/19 13:38 Source: patient Mode of arrival: ambulatory Limitations: no limitations Nursing Notes Reviewed: Yes Vital Signs Reviewed: Yes - History of Present Illness HPI Narrative: Patient presents emergency room with complaint of severe abdominal pain. Patient's had this pain since completing radiation therapy on Saturday of this week. She has known colon cancer with metastases to the liver and the lungs. Patient denies any other symptoms or complaints at this time. Pt Subjective Complaint: abdominal pain Onset (ago): day(s) Consistency: constant Location: diffuse Pain Severity: severe Pain Scale: 9 Quality: stabbing Radiation: none Migration to: no migration Improves with: nothing Worsens with: nothing Context: history of similar episodes Associated symptoms: Reports: nausea Treatments prior to arrival: prescription analgesics - Related Data Home Medications Medication Instructions Recorded Confirmed OxyCODONE Immed Rel [Roxicodone 5 5 mg PO Q4HR PRN 12/23/18 01/16/19 MG] Tramadol HCl [Ultram] 50 mg PO TID PRN 12/23/18 01/16/19 amLODIPine [Norvasc] 5 mg PO DAILY 12/23/18 01/16/19 Previous Rx's Medication Instructions Recorded Lidocaine/Prilocaine [Emla] 1 appl TP DAILY #30 gm 04/16/18 Lisinopril [Zestril] 10 mg PO DAILY #30 tablet 09/30/18 Rivaroxaban [Xarelto] 20 mg PO DAILY #30 tablet 09/30/18 OLANZapine [Zyprexa] 10 mg PO AD #24 tablet 12/09/18 Doxycycline 100 mg PO BID #60 capsule 12/23/18 Minocycline [Minocin] 50 mg PO DAILY #30 capsule 12/25/18 Dexamethasone [Decadron] 4 mg PO BID #10 tab 01/14/19 Ondansetron [Zofran ODT] 8 mg SL Q8H PRN #90 tab 01/14/19 Allergies Allergy/AdvReac Type Severity Reaction Status Date / Time codeine AdvReac Abdominal Verified 01/16/19 09:02 Pain All systems ED: reviewed and negative except as stated. Review of Systems: As Per HPI Constitutional: Denies: fever, chills Cardiovascular: Denies: chest pain, palpitations, dyspnea on exertion, orthopnea Respiratory: Denies: cough, dyspnea, wheezes Gastrointestinal: Reports: abdominal pain, nausea. Denies: vomiting, diarrhea, constipation Genitourinary: Denies: urgency, dysuria, frequency Musculoskeletal: Reports: back pain. 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 Absent: tenderness - Chest Chest inspection: Present: normal inspection, symmetric chest wall rise. Absent: tenderness - Respiratory Respiratory exam: Present: normal lung sounds bilaterally. Absent: respiratory distress, accessory muscle use - Cardiovascular Cardiovascular exam: Present: regular rate, normal rhythm, normal heart sounds - Abdominal Exam Abdominal exam: Present: soft, tenderness, guarding, diminished bowel sounds. Absent: distention, rebound, rigidity, trauma, Duran's sign, Rovsing's sign, tenderness at McBurney's Point - Extremities Exam Extremities exam: Present: normal inspection, full ROM - Back Exam Back exam: Present: normal inspection, full ROM. Absent: tenderness - Neurological Exam Neurological exam: Present: alert, oriented X3, CN II-XII intact, normal gait - Skin Skin exam: Present: warm, dry, intact, normal color Course Course Narrative: Patient seen and examined the time of arrival. See history of present illness. 73-year-old female presents emergency room with severe abdominal pain. Patient has known colon cancer with metastases to the liver and the lungs. She has chronic blood per rectum that is at her baseline. Patient did complete radiation therapy on Saturday this week. She has not had any treatment since then. She denies any falls trauma or injury. She is not describing any history of active bleeding or other abnormalities at this point. Patient denies chest pain shortness breath headache vision changes nausea vomiting or diarrhea. She has not had any fevers or chills. Vital signs reviewed and stable on presentation. Patient is alert she is oriented. Lungs are clear heart is regular. Abdomen is soft and the right upper and left upper quadrants but she has significant tenderness in the bilateral lower quadrants and suprapubically. examination was deferred at this time. Extremities otherwise normal no rashes lesions trauma or signs of pitting edema. Patient will have detailed workup including chest x-ray EKG CBC chemistry troponin electrolytes urinalysis along with pain medication fluids to be provided here. Uric acid and CPK will be added on as well. Disposition pending full workup treatment course. Patient is otherwise stable but does have significant distress. All the describes symptoms here today of been present since Saturday. - Reevaluation(s) Reevaluation #1: Labs are otherwise unremarkable. Chronic elevated alkaline phosphatase is noted. Urine is otherwise stable. CT imaging of the abdomen shows progressive disease in the colon with inflammation and swelling along with increased size of the hepatic lesions and lung lesions. Patient is resting more comfortably in the bed this time. She has been able to sleep. Patient and I discussed at length the concern for possible progression of the metastases versus radiation response from the cancer. I discussed admission to the hospital and the patient is comfortable this plan. She said that she is unable to take care of herself at home. I also discussed and reviewed the lytic lesions on her hip. Patient understands. Lengthy discussion was had at the bedside with the patient and the are both comfortable with the admission process. The hospitalist Dr. Delgado reviewed the case at length with me. She is comfortable admitting the patient this time we will consult oncology further recommendations. Patient lin l be monitored here in the emergency department until the admission process is completed. No other recommendations or issues. Time: 17:21 Vital Signs Temperature 98.2 F 01/23/19 13:32 Pulse Rate 79 01/23/19 13:32 Respiratory Rate 18 01/23/19 13:32 Blood Pressure 123/70 01/23/19 13:32 O2 Sat by Pulse Oximetry 97 01/23/19 13:32 Temperature 98.2 F 01/23/19 13:32 Pulse Rate 79 01/23/19 13:32 Respiratory Rate 18 01/23/19 13:32 Blood Pressure 123/70 01/23/19 13:32 O2 Sat by Pulse Oximetry 97 01/23/19 13:32 Oxygen Delivery Oxygen Delivery Room Air Abdominal Pain - MDM Narrative Medical decision making narrative: Abdominal pain, colon cancer, hematochezia - Medical Records Medical records reviewed: Yes I reviewed the patient's medical records. - Lab Data Lab results reviewed: Yes I reviewed the patient's lab results. Result diagrams: 01/23/19 14:11 01/23/19 14:11 Lab Results 01/23/19 01/23/19 01/23/19 Range/Units 13:40 14:11 14:11 WBC 4.8 (4.3-11.1) K/mcL RBC 4.82 (3.82-4.97) M/mcL Hgb 11.9 (11.5-15.4) g/dL Hct 39.1 (35.3-44.9) % MCV 81.1 L (83.0-100.0) fL MCH 24.7 L (28.0-33.3) pg MCHC 30.4 L (31.6-35.5) g/dL RDW 19.9 H (11.5-14.5) % Plt Count 74 L (140-400) K/mcL MPV TNP Immature Gran % Test Not Performed Seg Neutrophils % 66.0 % Band Neutrophils % 4.0 (0-4) % Lymphocytes % 4.0 % Monocytes % 22.0 % Eosinophils % Test Not Performed Basophils % 4.0 % Neutrophils # 3.4 (1.6-8.9) K/mcL Lymphocytes # 0.2 L (0.6-4.6) K/mcL Monocytes # 1.1 (0.0-1.3) K/mcL Eosinophils # Test Not Performed Basophils # 0.2 (0.0-0.2) K/mcL Platelet Estimate Decreased L (Normal) Immature Plt Fraction 7.7 H (1.1-6.1) % Ovalocytes 1+ A (Not Present) PT 34.0 H (9.4-12.1) Seconds INR 3.0 APTT 49.7 H (26.0-36.0) Seconds Sodium (136-145) mEq/L Potassium (3.5-5.1) mEq/L Chloride (98-107) mEq/L Carbon Dioxide (23-29) mEq/L BUN (8-23) mg/dL Creatinine (0.60-1.20) mg/dL Est GFR ( Amer) (> 60) Est GFR (Non-Af Amer) (> 60) BUN/Creatinine Ratio (6-26) Glucose (70-105) mg/dL Calculated Osmolality (280-300) Uric Acid (2.3-7.6) mg/dL Calcium (8.6-10.3) mg/dL Total Bilirubin (0.3-1.0) mg/dL Direct Bilirubin (0.0-0.2) mg/dL Indirect Bilirubin (0.0-1.2) mg/dL AST (13-39) Units/L ALT (7-52) Units/L Alkaline Phosphatase (34-104) Units/L Creatine Kinase (30-223) Units/L Serum Total Protein (6.4-8.9) g/dL Albumin (3.5-5.7) g/dL Globulin (2.4-3.5) g/dL Albumin/Globulin Ratio (1.1-2.2) Lipase (11-82) Units/L Urine Color Dark Yellow (Yellow) Urine Clarity Slightly Hazy (Clear) Urine pH 5.5 (5.0-8.0) pH Units Ur Specific [place] 1.016 (1.010-1.025) Urine Protein Negative (Neg-Trace) mg/dL Urine Glucose (UA) Normal (Normal) mg/dL Urine Ketones Trace H (Negative) mg/dL Urine Blood Negative (Negative) Urine Nitrite Negative (Negative) Urine Bilirubin Small H (Negative) Urine Urobilinogen Normal (Normal) mg/dL Ur Leukocyte Esterase Trace H (Negative) Urine Microscopic RBC 0-3 (0-3) per hpf Urine Microscopic WBC 0-3 (0-3) per hpf Ur Squamous Epith Cells Many H (None-Few) per lpf Ur Renal Epithelial Cell Few (None-Few) per hpf Urine Bacteria Few (None-Few) per hpf Hyaline Casts Few (None-Few) per lpf Ur Culture Indicated? YES A (NO) Specimen Rejected 01/23/19 01/23/19 01/23/19 Range/Units 14:11 14:11 14:11 WBC (4.3-11.1) K/mcL RBC (3.82-4.97) M/mcL Hgb (11.5-15.4) g/dL Hct (35.3-44.9) % MCV (83.0-100.0) fL MCH (28.0-33.3) pg MCHC (31.6-35.5) g/dL RDW (11.5-14.5) % Plt Count (140-400) K/mcL MPV Immature Gran % Seg Neutrophils % % Band Neutrophils % (0-4) % Lymphocytes % % Monocytes % % Eosinophils % Basophils % % Neutrophils # (1.6-8.9) K/mcL Lymphocytes # (0.6-4.6) K/mcL Monocytes # (0.0-1.3) K/mcL Eosinophils # Basophils # (0.0-0.2) K/mcL Platelet Estimate (Normal) Immature Plt Fraction (1.1-6.1) % Ovalocytes (Not Present) PT (9.4-12.1) Seconds INR APTT (26.0-36.0) Seconds Sodium 132 L (136-145) mEq/L Potassium 3.9 (3.5-5.1) mEq/L Chloride 99 (98-107) mEq/L Carbon Dioxide 24 (23-29) mEq/L BUN 11 (8-23) mg/dL Creatinine 0.69 (0.60-1.20) mg/dL Est GFR ( Amer) > 60 (> 60) Est GFR (Non-Af Amer) > 60 (> 60) BUN/Creatinine Ratio 16 (6-26) Glucose 113 H (70-105) mg/dL Calculated Osmolality 274 L (280-300) Uric Acid 5.3 (2.3-7.6) mg/dL Calcium 9.2 (8.6-10.3) mg/dL Total Bilirubin 1.1 H (0.3-1.0) mg/dL Direct Bilirubin 0.3 H (0.0-0.2) mg/dL Indirect Bilirubin 0.8 (0.0-1.2) mg/dL AST 39 (13-39) Units/L ALT 23 (7-52) Units/L Alkaline Phosphatase 318 H (34-104) Units/L Creatine Kinase 79 (30-223) Units/L Serum Total Protein 6.6 (6.4-8.9) g/dL Albumin 3.4 L (3.5-5.7) g/dL Globulin 3.2 (2.4-3.5) g/dL Albumin/Globulin Ratio 1.1 (1.1-2.2) Lipase 20 (11-82) Units/L Urine Color (Yellow) Urine Clarity (Clear) Urine pH (5.0-8.0) pH Units Ur Specific [place] (1.010-1.025) Urine Protein (Neg-Trace) mg/dL Urine Glucose (UA) (Normal) mg/dL Urine Ketones (Negative) mg/dL Urine Blood (Negative) Urine Nitrite (Negative) Urine Bilirubin (Negative) Urine Urobilinogen (Normal) mg/dL Ur Leukocyte Esterase (Negative) Urine Microscopic RBC (0-3) per hpf Urine Microscopic WBC (0-3) per hpf Ur Squamous Epith Cells (None-Few) per lpf Ur Renal Epithelial Cell (None-Few) per hpf Urine Bacteria (None-Few) per hpf Hyaline Casts (None-Few) per lpf Ur Culture Indicated? (NO) Specimen Rejected Clerical Err - Radiology Data Radiology results reviewed: Yes I reviewed the patient's radiology results. Chest x-ray stable. CT imaging the abdomen shows progressive metastatic disease - EKG Data EKG attestation: Yes I reviewed and interpreted this EKG. EKG results narrative: EKG shows sinus rhythm. Heart rate of 74. [place] interval of 184. QRS duration of 103. QTC of 450. [place] is normal. No acute signs of ST segment elevation or abnormality. No acute signs of WPW or Brugada syndrome. This EKG was reviewed and compared to previous ECG on 05/22/18 with no acute morphology changes
[2019-01-23 16:04] LABS: Basophils # 0.2 K/mcL (0.0-0.2); Lymphocytes # 0.2 K/mcL (0.6-4.6); Monocytes # 1.1 K/mcL (0.0-1.3); Neutrophils # 3.4 K/mcL (1.6-8.9); Ovalocytes 1+ (Not Present); Platelet Estimate Decreased (Normal)
[2019-01-23] MEDS ORDERED: Naloxone 0.4 MG/ML INJ IVP PRN (17:51)
[2019-01-23] MEDS ORDERED: Ondansetron ODT 4 MG TAB.RAPDIS SL PRN (17:53)
--- NOTE | 2019-01-23 17:54 | Internal Med History&Physical ---
Date of Encounter: 01/23/19 Time of Encounter: 17:53 Internal Medicine - H&P: HPI Chief complaint: abdominal pain Admitted From: Home Plans for Post Hospital Care: Home History of present illness: Ms. 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 Patient was seen recently by radiation oncology and finished radiation therapy and Saturday. Since that time herpes has gotten worse every day. She was told it might be related to being constipated. She denies significant abdominal distention. Her appetite is significantly decreased and does mention to having weight loss. 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 She was on palliative radiation therapy. Her pain was not adequately controlled with oxycodone she was on at home which made her to come to ER. She does mention having light red bowel movement ever since she was diagnosed of rectal cancer. She is on Xarelto for SVC syndrome. Does have nausea occasionally denies any vomiting though. Denies any chest pain or difficulty breathing. Denies any hip pain or bone pain. Denies any leg swelling. Patient was evaluated in the ER with a CT scan of abdomen and pelvis which showed significant progression of hepatic mass, enlargement of pulmonary nodules, enlargement of para-aortic lymph nodes, new small to moderate ascites, thickening of sigmoid colon and terminal ileum, moth-eaten appearance of right iliac crest transverse fracture through right iliac crest. Admission was requested for further pain management and oncology evaluation. She mentioned having nausea with codeine but no other allergies. She does not know all of her home medication but could not confirm oxycodone and lisinopril. CODE STATUS was decreased crest and she opted not to have any aggressive resuscitation measures including CPR or intubation, however she did not want palliative consult as of now and would like to talk to oncology. Past Med Surg Social Fam HX - Past Medical History Medical history: cancer, hypertension, other Additional medical history: metastatic rectal colon Psychiatric history: no psych history - Past Surgical History Surgical History: other Additional surgical history: carpal tunnel surgery to right hand - Social History Smoking Status: Never smoker Smokeless Tobacco Status: No Alcohol use: none Drug use: none - Family History Grandmother Hx Family Cancer: Yes - Additional Family History Additional family history: father of DC in 40s, stomach cancer on paternal side. Internal Medicine - H&P: Meds Lidocaine/Prilocaine [Emla] 1 appl TP DAILY #30 gm 04/16/18 [Rx] Lisinopril [Zestril] 10 mg PO DAILY #30 tablet 09/30/18 [Rx] Rivaroxaban [Xarelto] 20 mg PO DAILY #30 tablet 09/30/18 [Rx] Doxycycline 100 mg PO BID #60 capsule 12/23/18 [Rx] OxyCODONE Immed Rel [Roxicodone 5 MG] 5 mg PO Q4HR PRN 12/23/18 [History] Tramadol HCl [Ultram] 50 mg PO TID PRN 12/23/18 [History] Minocycline [Minocin] 50 mg PO DAILY #30 capsule 12/25/18 [Rx] Ondansetron [Zofran ODT] 8 mg SL Q8H PRN #90 tab 01/14/19 [Rx] Allergy/AdvReac Type Severity Reaction Status Date / Time codeine AdvReac Abdominal Verified 01/16/19 09:02 Pain All Systems PM: A 10-system review of systems was performed and is negative for pertinent findings except as documented above in the HPI. - Constitutional Vitals: Temp Pulse Resp BP Pulse Ox 98.2 F 76 14 128/67 93 01/23/19 13:32 01/23/19 17:10 01/23/19 17:10 01/23/19 17:10 01/23/19 17:10 Exam: Constitutional: Vitals as noted. Conversant. No Apparent Distress Eyes : Sclera white, conjunctiva clear, no lid lag, PEARLA. ENT : Grossly normal hearing. Oropharyngeal exam unremarkable. Moist mucus membranes. No JVD, no cervical lymphadenopathy. no thyromegaly or mass. Respiratory : Clear to auscultation bilaterally. No accessory muscle use, rales, rhonchi or wheezes Cardiovascular : RRR, +S1, +S2. no murmur, gallop, rubs. No chest wall tenderness, Rt side port noted GI/Abdominal : Soft, LLQ and RLQ tenderness, Non-distended, normal bowel sounds, no peritoneal signs. Musculoskeletal: no deformity noted. no edema or cyanosis. warm extremities, pulses palpable and symmetrical in UE/LE. no calf tenderness. Neurological: AO X3, CN II-XII grossly intact, grossly normal motor and sensory exam. Skin: No skin rash, lesions or ulcers noted. Pych: Good insight and judgement. Intact memory. AOx3. Internal Med - H&P Results - Labs CBC & Chem 7: 01/23/19 14:11 01/23/19 14:11 Labs: Short CBC 01/23/19 Range/Units 14:11 WBC 4.8 (4.3-11.1) K/mcL Hgb 11.9 (11.5-15.4) g/dL Hct 39.1 (35.3-44.9) % Plt Count 74 L (140-400) K/mcL Neutrophils # 3.4 (1.6-8.9) K/mcL BMP 01/23/19 14:11 Sodium 132 L Potassium 3.9 Chloride 99 Carbon Dioxide 24 BUN 11 Creatinine 0.69 Glucose 113 H Calcium 9.2 Cardiac Enzymes 01/23/19 Range/Units 16:16 Troponin I < 0.03 (< 0.04) ng/mL Liver Function 01/23/19 Range/Units 14:11 Total Bilirubin 1.1 H (0.3-1.0) mg/dL Direct Bilirubin 0.3 H (0.0-0.2) mg/dL AST 39 (13-39) Units/L ALT 23 (7-52) Units/L Alkaline Phosphatase 318 H (34-104) Units/L Albumin 3.4 L (3.5-5.7) g/dL Urine 01/23/19 Range/Units 13:40 Urine Color Dark Yellow (Yellow) Urine Clarity Slightly Hazy (Clear) Urine pH 5.5 (5.0-8.0) pH Units Ur Specific [place] 1.016 (1.010-1.025) Urine Protein Negative (Neg-Trace) mg/dL Urine Glucose (UA) Normal (Normal) mg/dL - Impressions ITS Impressions Abdomen/Pelvis CT 01/23/19 13:54 IMPRESSION: Significant progression of multiple hepatic masses since March 2018 most compatible with progression of metastatic disease. Interval enlargement of multiple noncalcified pulmonary nodules in both lung bases compatible with progression of metastatic disease. Interval enlargement of para-aortic lymph node within the mid abdomen compatible with progression of metastatic disease. New small to moderate ascites within the abdomen and pelvis. Etiology is indeterminate but could represent peritoneal involvement of metastatic disease. Moth eaten appearance of right iliac crest and left side of the sacrum. Although this could represent radiation treatment changes to the bone, metastatic disease should be given primary consideration. In addition, there is a transverse fracture through the posteromedial aspect right iliac crest with extension into the right sacroiliac joint likely representing pathologic fracture. Mild wall thickening of the sigmoid colon and to a lesser extent terminal ileum and portions of the right colon. These are nonspecific and could be related to radiation treatment. However, infectious or inflammatory colitis should be included the differential. D/ / Yair Gilbert MD / Yair Gilbert MD Interpreting Provider: Yair Gilbert MD Chest X-Ray 01/23/19 13:54 IMPRESSION: Stable appearance of the chest without evidence of acute cardiopulmonary disease. D/ / Ish Lee MD / Ish Lee MD Interpreting Provider: Ish Lee MD - Assessment and Plan (1) Metastasis from rectal cancer Current Visit: Yes Status: Acute Assessment and plan: Patient with known rectal metastatic cancer now with progression on imaging Has new small to moderate ascites. Does have some bowel wall thickening but denies any fevers. Does have on and off diarrhea We will hold for any antibiotics for now. We will await oncology evaluation. Patient does not want palliative care consult until then. Patient's pain is more abdominal in nature in her flanks bilaterally. No bony pain. Could be related to peritonitis with ascites however more likely to be due to metastasis. If patient develop any fever we will consider paracentesis. We will keep patient on pain regimen with oxycodone and fentanyl for breakthrough pain. Patient has elevated INR likely from xarelto use. We will continue for now. She does have ongoing mild rectal bleeding and some thrombocytopenia. Monitor CBC for now. (2) Rectal bleeding Current Visit: Yes Status: Acute Assessment and plan: Minimal in nature Has been ongoing for as long as she had rectal cancer Will continue xarelto for now (3) Peripheral neuropathy Current Visit: Yes Status: Acute Qualifiers: Peripheral neuropathy type: polyneuropathy, unspecified Qualified Code(s): G62.9 - Polyneuropathy, unspecified (4) Abdominal pain Current Visit: Yes Status: Acute Assessment and plan: As above Qualifiers: Abdominal location: left lower quadrant Qualified Code(s): R10.32 - Left lo wer quadrant pain (5) Hypertension Current Visit: No Status: Acute Assessment and plan: Blood pressure stable We will hold home antihypertensives for now Qualifiers: Hypertension type: essential hypertension Qualified Code(s): I10 - Essential (primary) hypertension (6) DVT prophylaxis Current Visit: No Status: Acute Assessment and plan: On xarelto - Time Spent With Patient Total time spent is greater than 50% in coordination of care (as documented) at patient's floor/unit and/or counseling patient:
[2019-01-23] MEDS ORDERED: *HR* FentaNYL (PF) 100 MCG/2 ML VIAL EP PRN (18:08)
[2019-01-24 00:42] LABS: Bilirubin,Urine Small (Negative); Blood,Urine Negative (Negative); Clarity,Urine Clear (Clear); Color,Urine Dark Yellow (Yellow); Glucose,Urine (UA) Normal (Normal); Ketones,Urine Negative (Negative); Leukocyte Esterase,Urine Negative (Negative); Nitrite,Urine Negative (Negative); Protein,Urine Negative (Neg-Trace); Specific Gravity,Urine > 1.030 (1.010-1.025); Urobilinogen,Urine Normal (Normal)
[2019-01-24 03:37] LABS: Eosinophils % 0.4 %; Immature Granulocytes % 0.7 % (0-4); Red Cell Distribution Width 19.9 % (11.5-14.5)
[2019-01-24 03:38] LABS: Hematocrit 31.2 % (35.3-44.9); Hemoglobin 9.8 g/dL (11.5-15.4); Immature Platelets 6.7 % (1.1-6.1); Lymphocytes # 0.3 K/mcL (0.6-4.6); Lymphocytes % 11.3 %; Mean Corpuscular HGB Conc 31.4 g/dL (31.6-35.5); Mean Corpuscular Hemoglobin 25.4 pg (28.0-33.3); Mean Corpuscular Volume 80.8 fL (83.0-100.0); Monocytes # 0.5 K/mcL (0.0-1.3); Monocytes % 17.5 %; Neutrophils # 1.9 K/mcL (1.6-8.9); Red Blood Count 3.86 M/mcL (3.82-4.97); Segmented Neutrophils % 70.1 %; White Blood Count 2.7 K/mcL (4.3-11.1)
[2019-01-24 03:47] LABS: Platelet Count 58 K/mcL (140-400)
[2019-01-24 04:02] LABS: BUN/Creatinine Ratio 17 (6-26); Blood Urea Nitrogen 9 mg/dL (8-23); Calcium 8.4 mg/dL (8.6-10.3); Carbon Dioxide 25 mEq/L (23-29); Chloride 105 mEq/L (98-107); Glucose 81 mg/dL (70-105); Osmolality,Calculated 270 (280-300); Potassium 4.3 mEq/L (3.5-5.1); Sodium 131 mEq/L (136-145); eGFR For African Americans > 60 (> 60); eGFR For Non-African Americans > 60 (> 60)
[2019-01-24 04:40] LABS: Platelet Estimate Marked Decrease (Normal)
[2019-01-24 04:41] LABS: Anisocytosis 1+ (Not Present); Hypochromasia Present (Not Present)
[2019-01-24] MEDS: *HR* OxyCODONE Immed Rel 5 MG TABLET PO PRN ×2 (07:48→12:21)
[2019-01-24] MEDS ORDERED: *HR* Rivaroxaban 10 MG TABLET PO SCH (09:00)
--- NOTE | 2019-01-24 12:44 | Internal Med Progress Note ---
Hospitalist Progress Note - Encounter Date of Encounter: 01/24/19 Time of Encounter: 12:29 - Subjective Interval History: Patient seen and examined this morning at bedside. Denies new complaints. Still with abdominal pain on both flanks. Denies any fevers but has some chills. Denies any diarrhea. Does have some blood tinge in her stool for long time. Denies any large BM with large amount of blood. Denies any urinary complaints. - Exam Vitals: Temp Pulse Resp BP Pulse Ox 98.3 F 79 18 131/70 92 01/24/19 11:42 01/24/19 11:42 01/24/19 11:42 01/24/19 11:42 01/24/19 11:42 Exam: Constitutional: Vitals as noted. Conversant. No Apparent Distress Respiratory : CTAB. No accessory muscle use, rales, rhonchi or wheezes Cardiovascular : RRR, +S1, +S2. no murmur, gallop, rubs. No chest wall tenderness, Rt side port noted without signs of infection GI/Abdominal : Soft, LLQ and RLQ tenderness, Non-distended, normal bowel sounds, no peritoneal signs. Musculoskeletal: no deformity noted. no edema or cyanosis. warm extremities, pulses palpable and symmetrical in UE/LE. no calf tenderness. Neurological: AO X3, CN II-XII grossly intact, grossly normal motor and sensory exam. Skin: No skin rash, lesions or ulcers noted. Pych: Good insight and judgement. Intact memory. AOx3. - Assessment and Plan (1) Metastasis from rectal cancer Current Visit: Yes Status: Acute (2) Rectal bleeding Current Visit: Yes Status: Acute (3) Peripheral neuropathy Current Visit: Yes Status: Acute (4) Abdominal pain Current Visit: Yes Status: Acute (5) Hypertension Current Visit: No Status: Acute (6) DVT prophylaxis Current Visit: No Status: Acute - Summary of Assessment and Plan Summary of Assessment and Plan: Assessment Acute Abdominal Pain Rectal bleeding Thrombocytopenia metastatic rectal cancer with progression Anemia Chronic peripheral neuropathy HTN SVT syndrome Plan - Will continue pain control. Patient somewhat hesitant to take pain medicine and unclear was taking at home. switch to percocet as oxycodone not working well. fentanyl for breatkthrough pain. Discussed with oncology who will see patient tomorrow. Cancer related pain vs Possible peritonitis with ascitis. However without fevers or other signs of sepsis. Pain could just be from cancer. Hold for antibiotics unless patient develops fever, however low threshold to start. Will get IR guided paracentesis on Saturday. Discussed with oncall surgery and would not be safely possible at bedside based on review of CT and elevated INR. - Xarelto has been held given thrombocytopenia. Did have elevated INR. Has long h/o blood in stool apparently. Will obtain stool occult to confirm. Did have drop in Hb. Monitor for now. - hold antihypertensive for now given low hb and possibly on more bleeding. - epcd for dvt prophylaxis. Internal Medicine: Result - Labs CBC & Chem 7: 01/24/19 03:10 01/24/19 03:10 Labs: Short CBC 01/23/19 01/24/19 Range/Units 14:11 03:10 WBC 4.8 2.7 L (4.3-11.1) K/mcL Hgb 11.9 9.8 L D (11.5-15.4) g/dL Hct 39.1 31.2 L (35.3-44.9) % Plt Count 74 L 58 L (140-400) K/mcL Neutrophils # 3.4 1.9 (1.6-8.9) K/mcL BMP 01/23/19 01/24/19 14:11 03:10 Sodium 132 L 131 L Potassium 3.9 4.3 Chloride 99 105 Carbon Dioxide 24 25 BUN 11 9 Creatinine 0.69 0.54 L Glucose 113 H 81 Calcium 9.2 8.4 L Cardiac Enzymes 01/23/19 Range/Units 16:16 Troponin I < 0.03 (< 0.04) ng/mL Liver Function 01/23/19 Range/Units 14:11 Total Bilirubin 1.1 H (0.3-1.0) mg/dL Direct Bilirubin 0.3 H (0.0-0.2) mg/dL AST 39 (13-39) Units/L ALT 23 (7-52) Units/L Alkaline Phosphatase 318 H (34-104) Units/L Albumin 3.4 L (3.5-5.7) g/dL Urine 01/23/19 01/24/19 Range/Units 13:40 00:30 Urine Color Dark Yellow Dark Yellow (Yellow) Urine Clarity Slightly Hazy Clear (Clear) Urine pH 5.5 6.0 (5.0-8.0) pH Units Ur Specific [place] 1.016 > 1.030 H (1.010-1.025) Urine Protein Negative Negative (Neg-Trace) mg/dL Urine Glucose (UA) Normal Normal (Normal) mg/dL - ABG Interpretation ABG results: PT/INR, D-dimer PT 34.0 Seconds (9.4-12.1) H 01/23/19 14:11 - Impressions Impressions Abdomen/Pelvis CT 01/23/19 13:54 IMPRESSION: Significant progression of multiple hepatic masses since March 2018 most compatible with progression of metastatic disease. Interval enlargement of multiple noncalcified pulmonary nodules in both lung bases compatible with progression of metastatic disease. Interval enlargement of para-aortic lymph node within the mid abdomen compatible with progression of metastatic disease. New small to moderate ascites within the abdomen and pelvis. Etiology is indeterminate but could represent peritoneal involvement of metastatic disease. Moth eaten appearance of right iliac crest and left side of the sacrum. Although this could represent radiation treatment changes to the bone, metastatic disease should be given primary consideration. In addition, there is a transverse fracture through the posteromedial aspect right iliac crest with extension into the right sacroiliac joint likely representing pathologic fracture. Mild wall thickening of the sigmoid colon and to a lesser extent terminal ileum and portions of the right colon. These are nonspecific and could be related to radiation treatment. However, infectious or inflammatory colitis should be included the differential. D/ / Yair Gilbert MD / Yair Gilbert MD Interpreting Provider: Yair Gilbert MD Chest X-Ray 01/23/19 13:54 IMPRESSION: Stable appearance of the chest without evidence of acute cardiopulmonary disease. D/ / Ish Lee MD / Ish Lee MD Interpreting Provider: Ish Lee MD Consult Discharge Plan - Plan Referrals: Ysabel Bauer, [employer] [Primary Care Provider] - (3) Peripheral neuropathy Qualifiers: Peripheral neuropathy type: polyneuropathy, unspecified Qualified Code(s): G62.9 - Polyneuropathy, unspecified (4) Abdominal pain Qualifiers: Abdominal location: left lower quadrant Qualified Code(s): R10.32 - Left lower quadrant pain (5) Hypertension Qualifiers: Hypertension type: essential hypertension Qualified Code(s): I10 - Essential (primary) hypertension
[2019-01-24] MEDS: *HR* OxyCODONE/APAP 5/325 TABLET PO PRN (17:30)
[2019-01-25] MEDS: *HR* OxyCODONE/APAP 5/325 TABLET PO PRN ×3 (06:17→17:23)
[2019-01-25 06:21] LABS: Basophils % 0.2 %; Mean Corpuscular Volume 79.7 fL (83.0-100.0); Monocytes % 14.8 %
[2019-01-25 06:23] LABS: Hematocrit 33.7 % (35.3-44.9); Hemoglobin 10.5 g/dL (11.5-15.4); Immature Granulocytes % 0.2 % (0-4); Immature Platelets 5.1 % (1.1-6.1); Lymphocytes # 0.3 K/mcL (0.6-4.6); Lymphocytes % 7.4 %; Mean Corpuscular HGB Conc 31.2 g/dL (31.6-35.5); Mean Corpuscular Hemoglobin 24.8 pg (28.0-33.3); Monocytes # 0.7 K/mcL (0.0-1.3); Platelet Count 57 K/mcL (140-400); Red Blood Count 4.23 M/mcL (3.82-4.97); Red Cell Distribution Width 20.1 % (11.5-14.5); Segmented Neutrophils % 77.4 %; White Blood Count 4.6 K/mcL (4.3-11.1)
[2019-01-25 06:24] LABS: Neutrophils # 3.6 K/mcL (1.6-8.9)
[2019-01-25 06:29] LABS: INR 1.4; Prothrombin Time 15.2 Seconds (9.4-12.1)
[2019-01-25 06:40] LABS: BUN/Creatinine Ratio 20 (6-26); Blood Urea Nitrogen 12 mg/dL (8-23); Calcium 8.5 mg/dL (8.6-10.3); Carbon Dioxide 24 mEq/L (23-29); Chloride 100 mEq/L (98-107); Glucose 91 mg/dL (70-105); Osmolality,Calculated 275 (280-300); Potassium 4.3 mEq/L (3.5-5.1); Sodium 133 mEq/L (136-145); eGFR For African Americans > 60 (> 60); eGFR For Non-African Americans > 60 (> 60)
--- NOTE | 2019-01-25 11:53 | Internal Med Progress Note ---
Hospitalist Progress Note - Encounter Date of Encounter: 01/25/19 Time of Encounter: 08:53 - Subjective Interval History: Patient seen and examined this morning at bedside. No acute overnight events. Pain much better controlled however still percent was medication effect wears off and bilateral flank region. Denies any nausea vomiting or diarrhea. Denies any chest pain or difficulty breathing. - Exam Vitals: Temp Pulse Resp BP Pulse Ox 98.5 F 81 16 121/75 94 01/25/19 11:32 01/25/19 11:32 01/25/19 11:32 01/25/19 11:32 01/25/19 11:32 Exam: Constitutional: Vitals as noted. Conversant. No Apparent Distress Respiratory : CTAB. No accessory muscle use, rales, rhonchi or wheezes Cardiovascular : RRR, +S1, +S2. no murmur, gallop, rubs. No chest wall tenderness, Rt side port noted without signs of infection GI/Abdominal : Soft, mild LLQ and RLQ tenderness, Non-distended, no peritoneal signs. Musculoskeletal: no deformity noted. no edema or cyanosis. warm extremities, pulses palpable and symmetrical in UE/LE. no calf tenderness. Neurological: AO X3, CN II-XII grossly intact, grossly normal motor and sensory exam. - Assessment and Plan (1) Metastasis from rectal cancer Current Visit: Yes Status: Acute (2) Rectal bleeding Current Visit: Yes Status: Acute (3) Peripheral neuropathy Current Visit: Yes Status: Acute (4) Abdominal pain Current Visit: Yes Status: Acute (5) Hypertension Current Visit: No Status: Acute (6) DVT prophylaxis Current Visit: No Status: Acute - Summary of Assessment and Plan Summary of Assessment and Plan: Assessment Acute Abdominal Pain metastatic rectal cancer with progression abdominal asctitis Rectal bleeding Thrombocytopenia Anemia Chronic peripheral neuropathy HTN SVT syndrome Plan - Will continue pain control with percocet which is working better and fentanyl for breatkthrough pain. - Cancer related pain vs Possible peritonitis with ascitis. Progression on metastasis on CT now with ascitis. Could also be from cancer involvment. Does have Positive urine cultures but denies any urinary complain. without fevers or other signs of sepsis. Pain could just be from cancer. Hold for antibiotics unless patient develops fever, however low threshold to start. Will get IR guided paracentesis on tomorrow. Oncology consulted, recommendation appreciated - Xarelto has been held given thrombocytopenia and blood in stool. had elevated INR. Has long h/o blood in stool apparently. stool occult positive. possibly from rectal cancer. Hbs stable now but did have drop in Hb since admission. Monitor for now. Oncology consulted. Will consider GI evaluation. - hold antihypertensive for now given low hb and possibility of more bleeding. BP stable for now. - epcd for dvt prophylaxis. - Time Spent with Patient Total time spent is greater than 50% in coordination of care (as documented) at patient's floor/unit and/or counseling patient: Internal Medicine: Result - Labs CBC & Chem 7: 01/25/19 06:09 01/25/19 06:09 Labs: Short CBC 01/25/19 Range/Units 06:09 WBC 4.6 D (4.3-11.1) K/mcL Hgb 10.5 L (11.5-15.4) g/dL Hct 33.7 L (35.3-44.9) % Plt Count 57 L (140-400) K/mcL Neutrophils # 3.6 (1.6-8.9) K/mcL BMP 01/25/19 06:09 Sodium 133 L Potassium 4.3 Chloride 100 Carbon Dioxide 24 BUN 12 Creatinine 0.60 Glucose 91 Calcium 8.5 L - ABG Interpretation ABG results: PT/INR, D-dimer PT 15.2 Seconds (9.4-12.1) H D 01/25/19 06:09 Consult Discharge Plan - Plan Referrals: Ysabel Bauer, [employer] [Primary Care Provider] - (3) Peripheral neuropathy Qualifiers: Peripheral neuropathy type: polyneuropathy, unspecified Qualified Code(s): G62.9 - Polyneuropathy, unspecified (4) Abdominal pain Qualifiers: Abdominal location: left lower quadrant Qualified Code(s): R10.32 - Left lower quadrant pain (5) Hypertension Qualifiers: Hypertension type: essential hypertension Qualified Code(s): I10 - Essential (primary) hypertension
[2019-01-25 13:23] LABS: % Iron Saturation 10 % (15-50); Iron 29 mcg/dL (50-170); Transferrin 214 mg/dL (203-362)
--- NOTE | 2019-01-25 14:34 | Oncology Inp Consult Note ---
Date of Encounter: 01/25/19 Time of Encounter: 14:33 - Data of Consult Requesting Physician: Jaida Medrano MD Primary Care Provider: Ysabel Bauer CNP - Consult Narrative Reason for consult: Metastatic Rectal CA, Ascites, Abdominal pain History of present illness: Assessment: 1. Abdominal Pain likely 2/2 metastatic rectal cancer 2. Metastatic rectal cancer with progression 3. Abdominal ascites 4. Rectal bleeding 5. Thrombocytopenia 6. Anemia 7. Peripheral neuropathy 8. HTN 9. SVC syndrome 10. Concern for UTI Plan: -Pain improving with Percocet, 5/325 mg PO q4h PRN and Fentanyl patch q12h PRN. Managed by primary team. Could consider adding long acting Fentanyl patch, 20 mcg transdermal q72h, and increasing short acting Percoct to 7.5/ 325 mg PO q4-q6h PRN pain -Urine culture positive for GP cocci. Patient afebrile and we are awaiting final urine culture results and sensitivities. -IR guided paracentesis planned for 01/26/19 to evaluate ascites. -CT A/P 01/23/19 shows significant progression of hepatic mass, enlargement of pulmonary nodules, enlargement of para-aortic lymph nodes, new small to moderate ascites, thickening of sigmoid colon and terminal ileum, moth-eaten appearance of right iliac crest transverse fracture through right iliac crest. -Patient's Xarelto currently on hold due to thrombocytopenia (plts 57) and positive FOBT. Consider GI c/s for evaluation. -Fe 29, % sat 10, transferrin 214; please administer Venofer 300 mg IV x 1. -Please also check B12 level, folate level, LDH, reticulocyte count, and blood smear. -Continue to trend H/H q12h -On SCDs for DVT ppx HPI: The patient is a 73 yo WF w/ multiple comorbidities and metastatic rectal cancer with progression of disease admitted for abdominal pain, decreased PO intake, weight loss, and nausea. She is currently receiving palliative radiation for treatment of her malignancy. Today, she says her abdominal pain and nausea have improved, and otherwise denies any chest pain, SOB, hip/ bone pain, or LE swelling. Oncology history: Diagnosis: Metastatic rectal cancer, initially diagnosed 01/2015 Previous Treatment: 02/2015-06/2015: FOLFOX Avastin 06/2015-03/2017: 5-FU Avastin maintenance. Avastin was discontinued 11/14/2016 secondary to proteinuria. Stopped secondary to progression 07/2017-12/2017: XELOX with Avastin, stopped secondary to progression. 01/14/2018-10/14/2018: FOLFIRI Avastin, stopped secondary to fatigue. 10/28/2018 - present: 5-FU with Avastin maintenance Radiation Treatment Summary Treatment Dates: 01/07/2019 - 01/20/2019; elapsed days 13 Treatment Site(s): Pelvis Dose: 3000 cGy in 10 fractions of 300 cGy each Treatment Course and Tolerance: completed palliative radiotherapy to her sacrum and bilateral SI joints as well as rectum without treatment break. She developed pain flare requiring dexamethasone use. She had persistent issues with nausea and vomiting in the early part of her treatment course that was ultimately improved with Zofran. At treatment completion, she had significant improvement in pain. She had developed constipation. ROS: 12 point ROS performed, pertinent positives in HPI. PE: GEN: AAO x 3, in NAD HEENT: NC/AT, PERRLA, EOMI, MMM LUNGS: CTAB, no w/r/r ABD: Soft, TTP in RUQ/ LUQ, +BS. Nondistended. EXT: No c/c/e Neuro: No focal deficits, and moves all four extremities. Past Med Surg Social Fam HX - Past Medical History Medical history: hypertension Additional medical history: metastatic rectal colon, blood clot in neck Psychiatric history: no psych history - Past Surgical History Surgical History: other Additional surgical history: carpal melanie - Social History Smoking Status: Never smoker Smokeless Tobacco Status: No Alcohol use: none Drug use: none - Family History Grandmother Hx Family Cancer: Yes Medications and Allergies Lidocaine/Prilocaine [Emla] 1 appl TP DAILY #30 gm 04/16/18 [Rx] Lisinopril [Zestril] 10 mg PO DAILY #30 tablet 09/30/18 [Rx] Rivaroxaban [Xarelto] 20 mg PO DAILY #30 tablet 09/30/18 [Rx] Doxycycline 100 mg PO BID #60 capsule 12/23/18 [Rx] Ondansetron [Zofran ODT] 8 mg SL Q8H PRN #90 tab 01/14/19 [Rx] Amlodipine Besylate 5 mg PO DAILY 01/24/19 [History] Non-Formulary Medication 0 each PO DAILY 01/24/19 [History] Allergy/AdvReac Type Severity Reaction Status Date / Time codeine AdvReac Abdominal Verified 01/24/19 10:36 Pain Oncology Inpatient Results Labs: 01/25/19 01/25/19 06:09 06:09 WBC 4.6 D RBC 4.23 Hgb 10.5 L Hct 33.7 L MCV 79.7 L MCH 24.8 L MCHC 31.2 L RDW 20.1 H Plt Count 57 L MPV TNP Immature Gran % 0.2 Seg Neutrophils % 77.4 Lymphocytes % 7.4 Monocytes % 14.8 Eosinophils % 0.0 Basophils % 0.2 Neutrophils # 3.6 Lymphocytes # 0.3 L Monocytes # 0.7 Eosinophils # 0.0 Basophils # 0.0 Immature Plt Fraction 5.1 Sodium 133 L Potassium 4.3 Chloride 100 Carbon Dioxide 24 BUN 12 Creatinine 0.60 Est GFR ( Amer) > 60 Est GFR (Non-Af Amer) > 60 BUN/Creatinine Ratio 20 Glucose 91 Calculated Osmolality 275 L Calcium 8.5 L Iron 29 L % Saturation 10 L Transferrin 214 Imaging: CT/CT abd pelvis w iv no oral 01/23/19 IMPRESSION: Significant progression of multiple hepatic masses since March 2018 most compatible with progression of metastatic disease. Interval enlargement of multiple noncalcified pulmonary nodules in both lung bases compatible with progression of metastatic disease. Interval enlargement of para-aortic lymph node within the mid abdomen compatible with progression of metastatic disease. New small to moderate ascites within the abdomen and pelvis. Etiology is indeterminate but could represent peritoneal involvement of metastatic disease. Moth eaten appearance of right iliac crest and left side of the sacrum. Although this could represent radiation treatment changes to the bone, metastatic disease should be given primary consideration. In addition, there is a transverse fracture through the posteromedial aspect right iliac crest with extension into the right sacroiliac joint likely representing pathologic fracture. Mild wall thickening of the sigmoid colon and to a lesser extent terminal ileum and portions of the right colon. These are nonspecific and could be related to radiation treatment. However, infectious or inflammatory colitis should be included the differential. CXR 01/23/19 IMPRESSION: Stable appearance of the chest without evidence of acute cardiopulmonary disease. Consult Discharge Plan - Plan Referrals: Ysabel Bauer, GRAPHIC ARTS INSTRUCTOR [Primary Care Provider] - Inpatient Charges Provider: Dr. Jenny Naqvi Consult - Inpatient: [id number]
[2019-01-25 19:30] LABS: Bilirubin,Urine Small (Negative); Blood,Urine Negative (Negative); Clarity,Urine Clear (Clear); Color,Urine Dark Yellow (Yellow); Glucose,Urine (UA) Normal (Normal); Ketones,Urine Negative (Negative); Leukocyte Esterase,Urine Negative (Negative); Nitrite,Urine Negative (Negative); PH,Urine 5.5 pH Units (5.0-8.0); Protein,Urine Trace mg/dL (Neg-Trace); Specific Gravity,Urine 1.024 (1.010-1.025)
[2019-01-26] MEDS: *HR* OxyCODONE/APAP 5/325 TABLET PO PRN (05:47)
[2019-01-26 06:00] LABS: Immature Reticulocyte % 30.3 % (11.0-38.0); Retculocyte # 0.09 M/mcL (0.05-0.10); Reticulocyte % 2.1 % (1.6-2.8)
[2019-01-26 06:12] LABS: Albumin 2.9 g/dL (3.5-5.7)
[2019-01-26] MEDS ORDERED: *HR* OxyCODONE/APAP 7.5/325 TABLET PO PRN (06:17)
[2019-01-26] MEDS ORDERED: *HR* FentaNYL PATCH 25 MCG PATCH TD SCH (06:30)
[2019-01-26 06:37] LABS: Folate 6.9 ng/mL (3.0-16.0)
--- NOTE | 2019-01-26 10:17 | Internal Med Progress Note ---
Hospitalist Progress Note - Encounter Date of Encounter: 01/26/19 Time of Encounter: 09:16 - Exam Vitals: Temp Pulse Resp BP Pulse Ox 98.2 F 84 16 126/74 97 01/26/19 07:10 01/26/19 07:10 01/26/19 07:10 01/26/19 07:10 01/26/19 07:10 - Assessment and Plan (1) Metastasis from rectal cancer Current Visit: Yes Status: Acute (2) Rectal bleeding Current Visit: Yes Status: Acute (3) Peripheral neuropathy Current Visit: Yes Status: Acute (4) Abdominal pain Current Visit: Yes Status: Acute (5) Hypertension Current Visit: No Status: Acute (6) DVT prophylaxis Current Visit: No Status: Acute - Time Spent with Patient Total time spent is greater than 50% in coordination of care (as documented) at patient's floor/unit and/or counseling patient: Internal Medicine: Result - Labs CBC & Chem 7: 01/25/19 06:09 01/25/19 06:09 Labs: BMP 01/25/19 06:09 Sodium 133 L Potassium 4.3 Chloride 100 Carbon Dioxide 24 BUN 12 Creatinine 0.60 Glucose 91 Calcium 8.5 L Liver Function 01/26/19 Range/Units 05:38 Albumin 2.9 L (3.5-5.7) g/dL Urine 01/23/19 01/25/19 Range/Units 13:40 19:14 Urine Color Dark Yellow Dark Yellow (Yellow) Urine Clarity Slightly Hazy Clear (Clear) Urine pH 5.5 5.5 (5.0-8.0) pH Units Ur Specific Elliott 1.016 1.024 (1.010-1.025) Urine Protein Negative Trace (Neg-Trace) mg/dL Urine Glucose (UA) Normal Normal (Normal) mg/dL - ABG Interpretation ABG results: PT/INR, D-dimer PT 15.2 Seconds (9.4-12.1) H D 01/25/19 06:09 Consult Discharge Plan - Plan Referrals: Ysabel Bauer, LOCKER PLANT ATTENDANT [Primary Care Provider] - (3) Peripheral neuropathy Qualifiers: Peripheral neuropathy type: polyneuropathy, unspecified Qualified Code(s): G62.9 - Polyneuropathy, unspecified (4) Abdominal pain Qualifiers: Abdominal location: left lower quadrant Qualified Code(s): R10.32 - Left lower quadrant pain (5) Hypertension Qualifiers: Hypertension type: essential hypertension Qualified Code(s): I10 - Essential (primary) hypertension
--- NOTE | 2019-01-26 11:42 | IR Procedure Note ---
Date of procedure: 01/26/19 Consent Obtained: Written consent Timeout: Correct patient and procedure verified, Correct site verified, Time out performed, Skin prep completed Local anesthetic: Lidocaine 1% Was there an showroom sales assistant present: Yes Door To Door Selling Distributor: Alejo Barrios Results/Findings: Ascites Estimated blood loss (cc): 1 Complications: None; Tolerated procedure well Indications: Ascites Procedure Performed: Paracentesis Site/Technique: LLQ, done by Dr. Barrios under my supervision Results/Findings (any specimens removed): Draining now. Straw colored fluid. Post Procedure Treatment Plan: Monitoring in pts room. Specimen: Collected in case needed.
--- NOTE | 2019-01-26 14:13 | Oncology Inp Progress Note ---
Date of Encounter: 01/26/19 Time of Encounter: 14:11 Oncology: Subj Interval history: S: Patient seen and examined. States her abdominal pain has improved, but had one bloody bowel movement this afternoon. Otherwise, denies any fevers, chills, chest pain, SOB, or urinary issues. O: Vitals T 97.3 F, HR 81, RR 18, BP 153/70, SaO2 93% on RA GEN: AAO x 3, in NAD. HEENT: NC/AT, PERRLA, EOMI, MMM LUNGS: CTAB, no w/r/r ABD: Soft, TTP in RLQ/ LLQ, +BS. Nondistended. EXT: No c/c/e Neuro: No focal deficits, and moves all four extremities. A: 1. Abdominal Pain likely 2/2 metastatic rectal cancer 2. Metastatic rectal cancer with progression 3. Abdominal ascites 4. Rectal bleeding 5. Thrombocytopenia 6. Anemia 7. Peripheral neuropathy 8. HTN 9. SVC syndrome 10. Concern for UTI P: -Pain improving with long acting Fentanyl patch, 25 mcg transdermal q72h, and short acting Percocet to 7.5/ 325 mg PO q4hh PRN pain -Urine culture positive E. Faecalis. Consider starting antibiotics based on s usceptiblities due to underlying malignancy -IR guided paracentesis done today to evaluate ascites; awaiting fluid studies. -Patient's Xarelto currently on hold due to thrombocytopenia (plts 57) and positive FOBT. Consider GI c/s for evaluation however unlikely to do any invasive procedures due to low platelets. -Fe 29, % sat 10, transferrin 214; received Venofer 300 mg IV x 1. -B12 362, please start on Vit B12 1000 mcg PO daily -Folic acid 6.9, please start on folic acid 1 mg PO daily. -LDH 313, blood smear pending. -Continue to trend H/H q12h -On SCDs for DVT ppx Oncology: Obj Data - Labs CBC & Chem 7: 01/25/19 06:09 01/25/19 06:09 Consult Discharge Plan - Plan Referrals: Ysabel Bauer, FINISH PAINTER [Primary Care Provider] - Inpatient Charges Provider: Dr. Jenny Naqvi Follow up - Inpatient: [id number]
[2019-01-26 14:27] VITALS: BP 131/67
--- NOTE | 2019-01-26 15:05 | Event Note ---
Date of Encounter: 01/26/19 Time of Encounter: 11:15 Attempted to see patient several times, but patient was off floor. Chart reviewed with Dr. Sexton. Patient with metastatic rectal cancer who is completed several courses of chemotherapy and just completed a course of radiation therapy. CT A/P with significant progression of hepatic masses, enlargement of pulmonary nodules, small to moderate ascites which is new, mild wall thickening involving the sigmoid colon, terminal ileum and portion of the right colon. Patient presented with hemoglobin 11.9 on admission and yesterday Hgb 10.5. Fecal occult blood test was positive. Bleeding likely secondary to rectal cancer. Plan to hold on any invasive procedures at this time. Full consult tomorrow.
[2019-01-26 17:42] LABS: RBC,Peritoneal Fluid < 0.002 M/mcL
[2019-01-26 17:44] LABS: Amylase,Peritoneal Fluid < 10 Units/L (No Ref Range); Glucose,Peritoneal Fluid 110 mg/dL (No Ref Range); LDH,Peritoneal Fluid 46 Units/L (No Ref Range); Total Protein,Peritoneal Fluid < 3.0 g/dL
--- NOTE | 2019-01-26 18:15 | Discharge Summary ---
- NOTES TO OUTPATIENT PROVIDER Notes to Outpatient Provider: Patient discharged with pain medication and will need close follow for pain control. Will need follow-up of CBC in 1 week. Orders not resulted at time of discharge: Pending orders 01/23/19 14:43 Culture,Blood [BC] Stat 01/25/19 12:55 Cell Cnt w Dif, Peritoneal Fl [BF] Routine 01/25/19 12:56 Albumin,Body Fluid Routine 01/26/19 11:18 Cytology [PTH] Routine Date of Encounter: 01/26/19 Time of Encounter: 18:14 - Discharge Diagnosis (1) Metastasis from rectal cancer Priority: Primary Status: Acute (2) Rectal bleeding Priority: Secondary Status: Acute (3) Peripheral neuropathy Priority: Secondary Status: Acute Qualifiers: Peripheral neuropathy type: polyneuropathy, unspecified Qualified Code(s): G62.9 - Polyneuropathy, unspecified (4) Abdominal pain Priority: Primary Status: Acute Qualifiers: Abdominal location: left lower quadrant Qualified Code(s): R10.32 - Left lower quadrant pain (5) Hypertension Priority: Secondary Status: Acute Qualifiers: Hypertension type: essential hypertension Qualified Code(s): I10 - Essential (primary) hypertension (6) DVT prophylaxis Priority: Secondary Status: Acute Hospital course: Ms. Kate is a 73 year old female with past medical history of hypertension, as she syndrome and sulcal, metastatic rectal cancer who recently finished radiation therapy came in with abdominal pain ongoing for past [address] abdomen and pelvis which showed significant progression of her metastatic disease in her lungs and liver and abdomen. Patient was found to have mild to moderate ascites. Her first UA was abnormal but these she did not have any urinary symptoms. She was not started on any IV antibiotics. Xarelto was held. Oncology consultation was obtained. Patient was found to have iron deficien cy, folate and vitamin B12 deficiency. Patient was found to have positive urine culture with enterococcus faecalis. Gastroenterology was consulted who did not recommend any further intervention except stopping Xarelto. Patient underwent peritoneal tap which was unremarkable. Patient was discharged with nitrofurantoin for 5 days. Patient will need follow-up CBC within a week. Patient will need follow-up with oncology as outpatient. Discharge discussed with: patient, family, nurse, social work, retirement sales consultant - Time Spent with Patient Total time spent providing and/or coordinating discharge services: Time spent: Greater than 30 minutes (40) - Discharge Medications Prescriptions: New OxyCODONE/APAP 7.5/325 [Percocet 7.5/325 MG] 1 each PO Q4HR PRN 3 Days #15 tablet PRN Reason: Pain FentaNYL PATCH [Duragesic] 25 mcg TD Q72H 6 Days #2 patch.td72 Nitrofurantoin Macrocrystal [Nitrofurantoin] 100 mg PO BID 5 Days #10 capsule Folic Acid 1 mg PO DAILY 30 Days #30 tablet Cyanocobalamin (Vitamin B-12) [Vitamin B12] 1,000 mcg PO DAILY 30 Days #30 tablet Continued Lidocaine/Prilocaine [Emla] 1 appl TP DAILY #30 gm Lisinopril [Zestril] 10 mg PO DAILY #30 tablet Ondansetron [Zofran ODT] 8 mg SL Q8H PRN #90 tab PRN Reason: Nausea Non-Formulary Medication 0 each PO DAILY Amlodipine Besylate 5 mg PO DAILY Discontinued Rivaroxaban [Xarelto] 20 mg PO DAILY #30 tablet Doxycycline 100 mg PO BID #60 capsule Home Medications: Lidocaine/Prilocaine [Emla] 1 appl TP DAILY #30 gm 04/16/18 [Rx] Lisinopril [Zestril] 10 mg PO DAILY #30 tablet 09/30/18 [Rx] Ondansetron [Zofran ODT] 8 mg SL Q8H PRN #90 tab 01/14/19 [Rx] Amlodipine Besylate 5 mg PO DAILY 01/24/19 [History] Non-Formulary Medication 0 each PO DAILY 01/24/19 [History] Cyanocobalamin (Vitamin B-12) [Vitamin B12] 1,000 mcg PO DAILY 30 Days #30 tablet 01/26/19 [Rx] FentaNYL PATCH [Duragesic] 25 mcg TD Q72H 6 Days #2 patch.td72 01/26/19 [Rx] Folic Acid 1 mg PO DAILY 30 Days #30 tablet 01/26/19 [Rx] Nitrofurantoin Macrocrystal [Nitrofurantoin] 100 mg PO BID 5 Days #10 capsule 01/26/19 [Rx] OxyCODONE/APAP 7.5/325 [Percocet 7.5/325 MG] 1 each PO Q4HR PRN 3 Days #15 tablet 01/26/19 [Rx] Allergies/Adverse Reactions: Allergy/AdvReac Type Severity Reaction Status Date / Time codeine AdvReac Abdominal Verified 01/24/19 10:36 Pain Date of admission: 01/25/19 13:29 Primary care physician: Ysabel Bauer CNP Consults: 01/23/19 18:07 Consult to Oncology [CONS] Routine Consulting Provider: [facility] Reason for Consult: progression of metastasis Call Completed: No 01/23/19 19:09 Consult to Nutrition [CONS] Routine Comment: Consulting Provider: NUTRITION Reason for Dietary Consult: Diet Education 01/25/19 15:13 Consult to Gastroenterology [CONS] Routine Consulting Provider: Gastroenterology [facility] Reason for Consult: positive stool occult, H/o rectal cancer Call Completed: No Discharging clinician: Jaida Medrano - Constitutional Vitals: Temp Pulse Resp BP Pulse Ox 97.8 F 90 17 131/67 96 01/26/19 13:58 01/26/19 13:58 01/26/19 13:58 01/26/19 13:58 01/26/19 13:58 Exam: Constitutional: Vitals as noted. Conversant. No Apparent Distress Respiratory : CTAB. No accessory muscle use, rales, rhonchi or wheezes Cardiovascular : RRR, +S1, +S2. no murmur, gallop, rubs. No chest wall tenderness, Rt side port noted without signs of infection GI/Abdominal : Soft, mild LLQ and RLQ tenderness, Non-distended, no peritoneal signs. Musculoskeletal: no deformity noted. no edema or cyanosis. warm extremities, pulses palpable and symmetrical in UE/LE. no calf tenderness. Neurological: AO X3, CN II-XII grossly intact, grossly normal motor and sensory exam. - Patient Status Disposition: Home, Self-Care Condition: Fair - Discharge Instructions Follow Up With: Ysabel Bauer CNP [Primary Care Provider] - - Diet and Activity Activity: increase activity as tolerated
[2019-01-26 19:08] LABS: Appearance of Peritoneal Fl CLEAR (Clear)
--- NOTE | 2019-01-27 12:40 | Electrocardiograph Report ---
[place] [id number] Test Date: 2019-01-23 Pat Name: Bella Kate Department: [id number] Room: 3A48 Gender: F Human Service Specialist: : [id number] Requested By: Ulices Harvey Order Number: [id number] Reading MD: Cassandra Alvarez Measurements Intervals [place] Rate: 74 P: 60 MN: 184 QRS: -9 QRSD: 103 T: 41 QT: 405 QTc: 450 Interpretive Statements Sinus rhythm Low voltage, precordial leads Electronically Signed On 01-27-2019 12:38:19 EDT by Cassandra Alvarez
[2019-01-29 02:36] LABS: Fluid Source for Albumin ASCITES
== END 2019-01-26 20:08 | disposition home or self-care (01) | DRG 436 ==
LOC: EMEROOARM 13:25 → 3ANU 13:25 → SUATTDRO 17:47 → 3ANU 18:06
PROVIDERS: ADMIT Internal Medicine Nephrology; ATTEND Internal Medicine

== ENCOUNTER 2019-03-02 22:15 | Observation (INO) ==
[2019-03-02 23:25] LABS: Bilirubin,Urine Moderate (Negative); Blood,Urine Negative (Negative); Clarity,Urine Cloudy (Clear); Color,Urine Orange (Yellow); Glucose,Urine (UA) Normal (Normal); Ketones,Urine 15 mg/dL (Negative); Leukocyte Esterase,Urine Small (Negative); Nitrite,Urine Positive (Negative); PH,Urine 5.5 pH Units (5.0-8.0); Protein,Urine 30 mg/dL (Neg-Trace); Specific Gravity,Urine 1.019 (1.010-1.025)
[2019-03-02 23:27] LABS: Bacteria,Urine None Seen per hpf (None-Few); Squamous Epithelial Cell,Urine Many per lpf (None-Few)
[2019-03-02 23:42] LABS: RBC,Urine 0-3 per hpf (0-3)
[2019-03-02 23:43] LABS: Mucus,Urine Moderate (Few); Renal Epithelial Cells,Urine Few per hpf (None-Few)
[2019-03-02] MEDS ORDERED: *HR* HYDROmorphone (PF) 1 MG/ML SYRINGE IVP ONE (23:55)
[2019-03-02] MEDS ORDERED: Isovue-370 500 ML BOTTLE IVP ONE (23:55)
[2019-03-03 00:43] LABS: Red Cell Distribution Width 24.3 % (11.5-14.5)
[2019-03-03 00:44] LABS: White Blood Count 9.9 K/mcL (4.3-11.1)
[2019-03-03 00:45] LABS: Basophils % 0.3 %; Hematocrit 37.3 % (35.3-44.9); Hemoglobin 12.1 g/dL (11.5-15.4); Immature Granulocytes % 0.5 % (0-4); Immature Platelets 6.1 % (1.1-6.1); Lymphocytes # 0.6 K/mcL (0.6-4.6); Lymphocytes % 6.1 %; Mean Corpuscular HGB Conc 32.4 g/dL (31.6-35.5); Mean Corpuscular Hemoglobin 26.5 pg (28.0-33.3); Mean Corpuscular Volume 81.8 fL (83.0-100.0); Mean Platelet Volume 11.6 fL (9.4-12.4); Monocytes # 1.3 K/mcL (0.0-1.3); Monocytes % 13.3 %; Neutrophils # 7.9 K/mcL (1.6-8.9); Platelet Count 159 K/mcL (140-400); Red Blood Count 4.56 M/mcL (3.82-4.97); Segmented Neutrophils % 79.8 %
[2019-03-03 01:03] LABS: Alanine Aminotransferase 22 Units/L (7-52); Albumin/Globulin Ratio 0.9 (1.1-2.2); Alkaline Phosphatase 457 Units/L (34-104); Amylase 20 Units/L (29-103); Aspartate Amino Transferase 74 Units/L (13-39); BUN/Creatinine Ratio 22 (6-26); Bilirubin,Indirect 1.7 mg/dL (0.0-1.2); Bilirubin,Total 2.7 mg/dL (0.3-1.0); Blood Urea Nitrogen 17 mg/dL (8-23); Calcium 9.2 mg/dL (8.6-10.3); Carbon Dioxide 24 mEq/L (23-29); Chloride 100 mEq/L (98-107); Globulin 3.3 g/dL (2.4-3.5); Glucose 111 mg/dL (70-105); Lipase 19 Units/L (11-82); Osmolality,Calculated 286 (280-300); Sodium 137 mEq/L (136-145); Total Protein 6.3 g/dL (6.4-8.9); eGFR For African Americans > 60 (> 60); eGFR For Non-African Americans > 60 (> 60)
[2019-03-03 01:08] LABS: Anisocytosis 2+ (Not Present); Ovalocytes 2+ (Not Present); Platelet Estimate Decreased (Normal); Tear Drop Cells 2+ (Not Present)
[2019-03-03] MEDS ORDERED: cefTRIAXone 2,000 MG in Water for inj. (sterile) 20 ML IVP ONE ×2 (02:51→05:00)
[2019-03-03] MEDS ORDERED: Naloxone 0.4 MG/ML INJ IVP PRN (05:17)
[2019-03-03] MEDS ORDERED: Ondansetron 4 MG/2 ML VIAL IVP PRN (05:17)
[2019-03-03] MEDS ORDERED: Metoclopramide 10 MG/10 ML UD.LIQ PO PRN (05:22)
[2019-03-03] MEDS ORDERED: 0.9 % Sodium Chloride 1,000 ML IVC ONE (05:24)
[2019-03-03] MEDS ORDERED: Potassium Chloride 40 MEQ, Lidocaine 1% 2 ML in D5% in Water 500 ML IVPB ONE (05:56)
[2019-03-03] MEDS ORDERED: Pantoprazole 40 MG VIAL IVP SCH (09:00)
[2019-03-03] MEDS ORDERED: cefTRIAXone 1,000 MG in Water for inj. (sterile) 10 ML IVP SCH (09:00)
[2019-03-03 10:37] LABS: INR 1.6; Prothrombin Time 17.8 Seconds (9.4-12.1)
[2019-03-03] MEDS: 0.9 % Sodium Chloride 1,000 ML IVC SCH (11:10)
[2019-03-03] MEDS ORDERED: Ringers Solution, Lactated 1,000 ML IVC ONE (11:41)
[2019-03-03] MEDS ORDERED: *HR* FentaNYL PATCH 12 MCG PATCH TD SCH (13:30)
[2019-03-03] MEDS ORDERED: *HR* FentaNYL PATCH 25 MCG PATCH TD SCH (13:30)
[2019-03-03] MEDS ORDERED: *HR* FentaNYL PATCH 50 MCG PATCH TD SCH (14:00)
[2019-03-03] MEDS ORDERED: Haloperidol Oral Conc 10 MG/5 ML UDC PO PRN (14:00)
[2019-03-04] MEDS: 0.9 % Sodium Chloride 1,000 ML IVC SCH (00:50)
[2019-03-04 04:51] LABS: Immature Granulocytes % 0.5 % (0-4); White Blood Count 6.2 K/mcL (4.3-11.1)
[2019-03-04 04:53] LABS: Basophils % 0.3 %; Hemoglobin 10.8 g/dL (11.5-15.4); Immature Platelets 6.3 % (1.1-6.1); Mean Corpuscular HGB Conc 31.8 g/dL (31.6-35.5); Mean Corpuscular Hemoglobin 26.6 pg (28.0-33.3); Mean Corpuscular Volume 83.7 fL (83.0-100.0); Monocytes % 15.5 %; Neutrophils # 4.5 K/mcL (1.6-8.9); Platelet Count 116 K/mcL (140-400); Red Blood Count 4.06 M/mcL (3.82-4.97); Red Cell Distribution Width 24.2 % (11.5-14.5); Segmented Neutrophils % 71.7 %
[2019-03-04] MEDS ORDERED: cefTRIAXone 1,000 MG in Water for inj. (sterile) 10 ML IVP SCH (05:00)
[2019-03-04] MEDS ORDERED: Aminoglycoside Consult 1 EACH MC ONE (05:02)
[2019-03-04 05:09] LABS: BUN/Creatinine Ratio 15 (6-26); Blood Urea Nitrogen 10 mg/dL (8-23); Calcium 8.3 mg/dL (8.6-10.3); Carbon Dioxide 23 mEq/L (23-29); Chloride 106 mEq/L (98-107); Glucose 103 mg/dL (70-105); Magnesium 1.3 mg/dL (1.6-2.6); Osmolality,Calculated 283 (280-300); Potassium 3.1 mEq/L (3.5-5.1); Sodium 137 mEq/L (136-145); eGFR For African Americans > 60 (> 60); eGFR For Non-African Americans > 60 (> 60)
[2019-03-04 05:15] LABS: Lymphocytes # 0.7 K/mcL (0.6-4.6)
[2019-03-04 05:31] LABS: Platelet Estimate Decreased (Normal)
[2019-03-04 05:32] LABS: Anisocytosis 2+ (Not Present)
[2019-03-04 05:33] LABS: Tear Drop Cells 2+ (Not Present)
[2019-03-04] MEDS ORDERED: Nitrofurantoin (BID) 100 MG CAPSULE PO SCH (10:07)
[2019-03-04 11:27] VITALS: BP 113/71
== END 2019-03-04 14:42 | disposition hospice, home (50) ==
LOC: EMEROOARM 22:15 → 2ANU 22:15 → SUATTDRO 03-03 05:01 → 2ANU 03-03 06:10
PROVIDERS: ADMIT Internal Medicine; ATTEND Internal Medicine